=== PATIENT | female | born 1955 | race Caucasian/White ===

== ENCOUNTER → 2017-12-26 07:23 | Outpatient (CLI) | payer OTHER, SELFPAY ==
--- NOTE | 2017-12-26 07:30 | DI.US.S_ITS ---
PROCEDURE: US THYROID INDICATIONS: NONTOXIC MULTINODULAR GOITER TECHNIQUE: Real-time scanning was performed of the thyroid gland, with image documentation. COMPARISON: [facility], US, THYROID, 10/05/2016, 9:51. [facility], US, THYROID, 04/18/2016, 13:12. [facility], US, THYROID, 08/27/2015, 8:34. FINDINGS: Right: The right thyroid lobe measures 2.2 x 2.4 x 5.4 cm. The superior right thyroid lobe contains a 2.1 x 2.0 x 2.4 cm solid nodule that is hyperechoic and smoothly marginated, without internal calcifications and little if any change from the prior ultrasound. There is also a mid right thyroid lobe nodule measuring 1.9 x 1.0 x 1.5 cm, solid and isoechoic with smooth margination is seen several punctate hyperechoic foci. This also has not changed appreciably from the prior study. There is a inferior right thyroid lobe nodule measuring 1.3 x 1.1 x 1.8 cm, solid hypoechoic smoothly marginated and free of internal calcifications. This has not changed in size. Left: The left thyroid lobe measures 2.9 x 4.4 x 6.2 cm. The left thyroid lobe contains a 2.4 x 4.2 x 4.8 cm nodule that is solid hypoechoic smoothly marginated contains several internal patients. This also has not changed appreciably in size. Isthmus: 6 mm in thickness. IMPRESSION: Bilateral thyroid nodules that have not changed appreciably in size from the comparison examination in October of last year. Dictated by: Roberto Johnson M.D. on 12/26/2017 at 14:01 Approved by: Roberto Johnson M.D. on 12/26/2017 at 14:05
[2017-12-26 08:07] LABS: Add Manual Diff / Slide Review NO; Basophils Percent Auto 1.9 % (0-2); Eosinophils Percent Auto 1.8 % (2-4); Hematocrit 39.6 % (36-46); Hemoglobin 13.4 g/dL (12.0-16.0); Lymphocytes Percent Auto 44.6 % (25-40); Mean Corpuscular HGB Conc 33.8 % (30-36); Mean Corpuscular Hemoglobin 31.6 PG (26-34); Mean Corpuscular Volume 93.5 fL (80-100); Monocytes Percent Auto 9.4 % (3-14); Neutrophils Absolute Auto 2400 /uL (3000-5900); Neutrophils Percent Auto 42.3 % (50-75); Platelet Count 285 X10^3/uL (150-400); Red Blood Cell Count 4.23 X10^6/uL (4.0-5.2); Red Cell Distribution Width 13.6 % (11.6-14.8); White Blood Cell Count 5.7 X10^3/uL (4.5-11.0)
[2017-12-26 08:42] LABS: Alanine Aminotransferase 29 IU/L (9-52); Albumin 4.3 g/dL (3.5-5.0); Albumin Globulin Ratio 1.3 (1.0-2.8); Alkaline Phosphatase 55 U/L (38-126); Aspartate Aminotransferase 26 IU/L (14-36); BUN Creatinine Ratio 43.3 (6-22); Bilirubin Total 0.4 mg/dL (0.2-1.3); Calcium 9.5 mg/dL (8.4-10.2); Cholesterol 261 mg/dL (140-199); Estimated Glomerular Filt Rate > 60.0 mL/min (>60); Globulin 3.3 g/dL (1.7-4.1); Glucose 93 mg/dL (80-110); HDL Cholesterol 77 mg/dL (40-60); HEMOLYSIS < 15 (0-50); LDL Cholesterol Calculated 169 mg/dL (<100); Potassium 4.1 mmol/L (3.4-5.1); Sodium 141 mmol/L (137-145); Total Protein 7.6 g/dL (6.3-8.2); Triglycerides 77 mg/dL (35-150)
[2017-12-26 08:58] LABS: Free T3, Triiodothyronine Free 3.57 pg/mL (2.77-5.27); Free T4, Direct Thyroxine 0.93 ng/dL (0.78-2.19)
[2017-12-26 09:12] LABS: Thyroid Stimulating Hormone 0.67 uIU/mL (0.47-4.68)
== END ==
PROVIDERS: Visit Provider Physician Assistant
DX: E04.2 Nontoxic multinodular goiter (principal); E78.5 Hyperlipidemia, unspecified; E06.3 Autoimmune thyroiditis
CPT/HCPCS: 36415; 76536; 80053; 80061; 84439; 84443; 84481; 85025

== ENCOUNTER → 2020-06-23 11:53 | Outpatient (CLI) | payer MEDICARE, SELFPAY ==
--- NOTE | 2020-06-23 | DI.RAD.S_ITS ---
PROCEDURE: XR CHEST 2V INDICATIONS: SHORTNESS OF BREATH TECHNIQUE: 2 views of the chest were acquired. COMPARISON: [facility], , CHEST 1 VIEW, 09/09/2010, 8:08. FINDINGS: Surgical changes and devices: Abdominal surgical clips. Right upper thorax/axillary clips. Lungs and pleura: Mild opacity at the right lung base. Emphysematous change. No pleural effusions or pneumothorax. Mediastinum: Mediastinal contours are normal. Heart size is normal. Bones and chest wall: No suspicious bony abnormalities. Soft tissues appear unremarkable. IMPRESSION: Mild airspace opacity at the right lung base. This could be due to scarring or atelectasis as was seen on the CT from 2010. Less likely pneumonia or aspiration. Emphysematous change. Dictated by: Uriel Post M.D. on 06/23/2020 at 13:37 Approved by: Uriel Post M.D. on 06/23/2020 at 13:41
== END ==
PROVIDERS: PCP Physician Assistant; Referring Provider Physician Assistant; Visit Provider Physician Assistant
DX: R06.02 Shortness of breath (principal)
CPT/HCPCS: 71046

== ENCOUNTER → 2020-06-30 12:55 | Outpatient (CLI) | payer MEDICARE, SELFPAY ==
--- NOTE | 2020-06-30 | DI.US.S_ITS ---
PROCEDURE: US CHEST COMPARISON: None. INDICATIONS: POSSIBLE PLEURAL EFFUSION; STAGE 4 BREAST CANCER FINDINGS: Scanning over the chest bilaterally reveals no evidence of pleural effusions. Thoracentesis procedure therefore was canceled bilaterally. IMPRESSION: No abnormal pleural fluid is present. Thoracentesis was not performed. Dictated by: Roberto Johnson M.D. on 06/30/2020 at 14:06 Approved by: Roberto Johnson M.D. on 06/30/2020 at 14:07
[2020-06-30 13:30] LABS: INR 0.9 (0.9-1.3); Prothrombin Time 10.7 SECONDS (10.1-12.7)
== END ==
PROVIDERS: PCP Physician Assistant; Referring Provider Internal Medicine Hematology & Oncology; Visit Provider Internal Medicine Hematology & Oncology
DX: C50.311 Malignant neoplasm of lower-inner quadrant of right female breast (principal); Z51.81 Encounter for therapeutic drug level monitoring
CPT/HCPCS: 36415; 76604; 85610

== ENCOUNTER → 2020-10-11 09:20 | Outpatient (CLI) | payer MEDICARE, SELFPAY ==
--- NOTE | 2020-10-11 10:29 | DI.CT.S_ITS ---
PROCEDURE: CT CHEST ABD PEL W CON INDICATIONS: Follow-up metastatic breast cancer TECHNIQUE: After the administration of oral and intravenous contrast, 5 mm thick sections acquired from the lung apices to the symphysis. 5 mm coronal and sagittal reformats were performed, with additional 7 mm coronal MIP reformats through the lungs. For radiation dose reduction, the following was used: automated exposure control, adjustment of mA and/or kV according to patient size. COMPARISON: [facility], CR, XR CHEST 2V, 06/23/2020, 12:00. FINDINGS: Image quality: Excellent. CHEST: Lungs and pleura: Scarring/atelectasis in medial aspect of bilateral upper lung woodruff are seen. 1.4 x 1.3 cm spiculated soft tissue density nodule in posterior aspect of right upper lobe near apex is seen series 3, image 60. Spiculated soft tissue density mass measures 2.5 x 2.4 cm in size is seen in medial aspect of left upper lobe series 3, image 116. 1.4 x 1.1 cm nodule with spiculated margin is seen adjacent to posterior pleura of left lower lobe series 3, image 139. 2.1 x 1.5 cm lobulated and ill-defined solid mass is seen adjacent to anterior pleura of left lingular segment series 3, image 156. 2.5 x 2.4 cm solid mass with spiculated margin is seen adjacent to posterior pleura of right lower lobe series 3, image 202. 1.1 cm spiculated solid nodule is also noted in anterior medial aspect of left lingular segment near left lung base series 3, image 238. No pleural effusions or pneumothorax. Central and peripheral airways appear patent and normal in caliber. Mediastinum: Heart size is normal. No pericardial effusion. Borderline prominent mediastinal lymph nodes are seen measures up to 1 cm in short axis diameter in subcarinal space. No gross hilar lymphadenopathy. Thoracic aorta and central pulmonary arteries are normal in size. Esophagus is normal in caliber. No hiatal hernia. Chest wall: No axillary or supraclavicular adenopathy by size criteria. Thyroid gland within normal limits. Patient is status post right mastectomy. Surgical clips are seen in right axilla. ABDOMEN: Solid organs: Liver is normal in size . Hepatic steatosis is seen. 1.4 x 0.9 cm ill-defined hypodense area is seen in left hepatic dome. No other hepatic lesion is seen. Gallbladder is within normal limits. Biliary system is non dilated. Pancreas enhances normally. Spleen is surgically absent. Lobulated soft tissue density structure in left upper quadrant measures 3 x 2.4 cm is seen likely represent a splenule series 2, image 55. No adrenal nodules. Kidneys demonstrate normal size and enhancement, without hydronephrosis. Multiple hypodense areas are seen scattered in upper to midpole of left kidney and may represent renal cysts. Evaluation of left upper pole kidney is slightly limited due to beam hardening artifacts from adjacent surgical clips in splenic fossa. Peritoneum and bowel: Bowel loops demonstrate normal wall thickness and caliber. No free fluid or air. Nodes and vessels: No retroperitoneal or mesenteric adenopathy by size criteria. Surgical clips are seen adjacent to abdominal aorta and IVC. Aorta and inferior vena cava are normal in size. Miscellaneous: No ventral hernias. PELVIS: Genitourinary: Bladder wall thickness is normal. No gross abnormality is seen in uterus and bilateral adnexa. Miscellaneous: No inguinal hernias or adenopathy. Bones: Ill-defined area of sclerosis involving upper sternum is seen concerning for bony metastasis. No other suspicious bony lesion is seen. No vertebral body compression fractures. IMPRESSION: 1. Multiple soft tissue density lesions scattered in bilateral lung parenchyma as described above suggestive of bilateral pulmonary metastatic lesions. No pleural effusion or pneumothorax. Airway is patent. 2. Subtle hypodensity involving left hepatic dome which could represent a hepatic cyst. Early liver metastatic disease cannot be entirely excluded. 3. Borderline prominent subcarinal lymph node. No abdominal or pelvic lymphadenopathy by size criteria. 4. Ill-defined sclerosis involving upper sternum concerning for bony metastasis. No other suspicious bony lesion is seen. 5. 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 Numerous surgical clips are also noted in retroperitoneal space adjacent to abdominal aorta . Dictated by: Kofi Nickerson M.D. on 10/11/2020 at 11:34 Approved by: Kofi Nickerson M.D. on 10/11/2020 at 12:25
== END ==
PROVIDERS: PCP Physician Assistant; Referring Provider Internal Medicine; Visit Provider Internal Medicine
DX: C50.911 Malignant neoplasm of unspecified site of right female breast (principal); C78.00 Secondary malignant neoplasm of unspecified lung; C78.7 Secondary malignant neoplasm of liver and intrahepatic bile duct; M89.9 Disorder of bone, unspecified
CPT/HCPCS: 71260; 74177; Q9967

== ENCOUNTER → 2020-11-12 10:42 | Outpatient (CLI) | payer MEDICARE, SELFPAY ==
[2020-11-12] MEDS: COVID-19 VACC, Ad26(JANSSEN)/PF 0.5 ML IM (10:54)
== END ==
PROVIDERS: PCP Physician Assistant; Visit Provider Internal Medicine
DX: Z23 Encounter for immunization (principal)
CPT/HCPCS: 0031A; 91303

== ENCOUNTER → 2020-11-17 06:40 | Outpatient (CLI) | payer MEDICARE, SELFPAY ==
--- NOTE | 2020-11-17 06:41 | DI.MRI.S_ITS ---
PROCEDURE: MR LUMBAR SPINE WO/W CON INDICATIONS: looking for L5-S1 spinal cord, epidural, paraspinous pelvic TECHNIQUE: Noncontrast sagittal T1 spin echo and T2 fast spin echo, sagittal STIR, axial T1 and T2 fast spin echo through the lumbar spine. In cases with scoliosis, additional coronal T2 fast spin echo may be performed. After the administration of contrast, sagittal and axial T1 spin echo with fat saturation through the lumbar spine. COMPARISON: [facility], , L-SPINE 2-3 VIEWS, 02/14/2016, 13:23. FINDINGS: Image quality: Excellent. Alignment and curvature: There is normal bony alignment. Bones: Transitional anatomy with sacralization of the L5 vertebral body and rudimentary L5-S1 disc. Marrow is of normal overall signal. No acute vertebral body compression fractures. No suspicious marrow enhancement. Spinal cord: Conus medullaris terminates at the L1 level. Visualized spinal cord demonstrates normal signal, without suspicious enhancement. Paraspinous soft tissues: No paravertebral masses or abnormal enhancement. T12-L1: Normal appearance. L1-L2: Normal appearance. L2-L3: Loss of disc signal. Minimal, diffuse disc bulge. No central stenosis. No neural foraminal narrowing. No neural compression. L3-L4: Loss of disc signal. Mild, diffuse disc bulge. Mild bilateral facet hypertrophy. No central stenosis. No neural foraminal narrowing. No neural compression. L4-L5: Loss of disc signal. Mild, diffuse disc bulge. Moderate to severe bilateral facet hypertrophy. Mild narrowing of the central canal. Mild bilateral neural foraminal narrowing. No neural compression. Edema and mild heterogeneous enhancement noted in the soft tissues adjacent to the facets compatible with inflammatory change including within the neural foraminal fat, left greater than right. L5-S1: Disc has a normal appearance. Mild bilateral facet hypertrophy. No central stenosis. No neural foraminal narrowing. No neural compression. IMPRESSION: 1. Transitional anatomy with sacralization of the L5 vertebral body and rudimentary L5-S1 disc. 2. No evidence of metastatic disease. 3. Multilevel degenerative disc disease. 4. Multilevel facet arthropathy with severe degenerative changes identified in the L4-L5 facets. 5. Mild L4-L5 central canal narrowing. 6. Mild bilateral L4-L5 neural foraminal narrowing. 7. No neural compression. 8. Inflammatory changes noted in the soft tissues adjacent to the L4-L5 facets with inflammatory change which is extending into the bilateral L4-L5 neural foramina, left greater than right. Dictated by: Cinthya Castillo MD, PhD on 11/17/2020 at 13:35 Approved by: Cinthya Castillo MD, PhD on 11/17/2020 at 14:14
--- NOTE | 2020-11-17 06:41 | DI.MRI.S_ITS ---
PROCEDURE: MR PELIS WO/W CON INDICATIONS: breast cancer, left sided back pain radiating to left foot TECHNIQUE: Noncontrast axial and coronal T1 spin echo and STIR through the lumbosacral plexus region. Optional contrast may be given, followed by axial and coronal T1 spin echo with fat saturation through the sacral plexus. COMPARISON: [facility], RG, CT THORAX/ ABD/ PELVIS WITH CONTRAST, 08/20/2020, 11:27. [facility], CT, CT CHEST ABD PEL W CON, 10/11/2020, 10:38. FINDINGS: Image quality: Excellent. Lumbosacral plexus: Superior to the piriformis muscles, the pre-plexal structures appear normal, including the lumbosacral trunk and S1 root. Just anterior to the piriformis muscles, the sacral plexus proper demonstrates normal morphology (lumbosacral trunk, S1 to S3 nerve roots). Inferior to the piriformis muscles, the sciatic nerves appear normal. Soft tissues: The piriformis muscles appear symmetric in size. No presacral masses. Rectum appears normal in caliber and wall thickness. No pathologic free pelvic fluid. No visualized adenopathy by size criteria. Prior CT scanning that included the low pelvis has identified [place] oriented uterus, with little if any visible change from the earliest available CT scanning that shows this finding 08/20/20. By MR scanning the eccentric left-sided dominant fibroid is again seen, mildly heterogeneous in enhancement, and ovoid in morphology, with maximal AP and transverse dimensions of 3.4 x 4.7 cm. An additional right anterior fundal fibroid is exophytic, subserosal, and measures only 1.7 cm in maximal dimension. The uterus is relatively retroverted, and the enlarged left fundal portion of the uterus does impinge against the adjacent underlying left sacral plexus. Bones: Marrow is normal in overall signal. IMPRESSION: Retroverted uterus, with left fundal moderately large fibroid further contributing to impingement on the left margin of the sacral plexus, in this patient with additional small several uterine fibroids and the likelihood of metastatic disease as cause of this appearance is considered very low. No marrow space lesion is found involving the visualized osseous elements of the pelvis. No adenopathy is seen. No ascites or evidence of peritoneal carcinomatosis is found. Dictated by: Roberto Johnson M.D. on 11/17/2020 at 10:11 Approved by: Roberto Johnson M.D. on 11/17/2020 at 10:22
== END ==
PROVIDERS: PCP Physician Assistant; Referring Provider Internal Medicine; Visit Provider Internal Medicine
DX: C50.911 Malignant neoplasm of unspecified site of right female breast (principal); C78.00 Secondary malignant neoplasm of unspecified lung; C79.51 Secondary malignant neoplasm of bone; N85.4 Malposition of uterus; D25.2 Subserosal leiomyoma of uterus; M51.16 Intervertebral disc disorders with radiculopathy, lumbar region; M47.26 Other spondylosis with radiculopathy, lumbar region; M47.27 Other spondylosis with radiculopathy, lumbosacral region; M48.061 Spinal stenosis, lumbar region without neurogenic claudication; M43.27 Fusion of spine, lumbosacral region
CPT/HCPCS: 72158; 72197; A9579

== ENCOUNTER → 2020-12-15 12:30 | Outpatient (CLI) | payer MEDICARE, SELFPAY ==
--- NOTE | 2020-12-15 12:31 | DI.RAD.S_ITS ---
PROCEDURE: XR CHEST 2V INDICATIONS: SOB and decreased RLL sounds TECHNIQUE: 2 views of the chest were acquired. COMPARISON: [facility], CT, CT CHEST ABD PEL W CON, 10/11/2020, 10:38. [facility], CR, XR CHEST 2V, 06/23/2020, 12:00. FINDINGS: Surgical changes and devices: None. Lungs and pleura: Masslike opacities are noted overlying the left upper and right lower lobes. It is noted there identified on the 10/11/2020 CT along with additional mass lesions not as well appreciated. Mediastinum: Mediastinal contours are normal. Heart size is normal. Bones and chest wall: No suspicious bony abnormalities. Soft tissues appear unremarkable. IMPRESSION: Bilateral pulmonary masses as previously identified. No acute consolidation or effusion. Dictated by: Jackeline Akhtar M.D. on 12/15/2020 at 12:53 Approved by: Jackeline Akhtar M.D. on 12/15/2020 at 12:54
== END ==
PROVIDERS: Family Provider Physician Assistant; PCP Physician Assistant; Referring Provider Internal Medicine; Visit Provider Internal Medicine
DX: C50.911 Malignant neoplasm of unspecified site of right female breast (principal); C78.00 Secondary malignant neoplasm of unspecified lung; C78.7 Secondary malignant neoplasm of liver and intrahepatic bile duct; C79.51 Secondary malignant neoplasm of bone; R06.02 Shortness of breath; R91.8 Other nonspecific abnormal finding of lung field
CPT/HCPCS: 71046

== ENCOUNTER → 2020-12-16 10:40 | Outpatient (CLI) | payer MEDICARE, SELFPAY ==
--- NOTE | 2020-12-16 10:42 | DI.CT.S_ITS ---
PROCEDURE: CT CHEST ABD PEL W CON INDICATIONS: Follow-up metastatic breast cancer TECHNIQUE: After the administration of oral and intravenous contrast, 5 mm thick sections acquired from the lung apices to the symphysis. 5 mm coronal and sagittal reformats were performed, with additional 7 mm coronal MIP reformats through the lungs. For radiation dose reduction, the following was used: automated exposure control, adjustment of mA and/or kV according to patient size. COMPARISON: [facility], CT, CT CHEST ABD PEL W CON, 10/11/2020, 10:38. FINDINGS: Image quality: Excellent. CHEST: Lungs and pleura: Chronic scarring and bronchiectasis is seen in the medial left upper lobe. No pleural effusions or pneumothorax. Central and peripheral airways appear patent and normal in caliber. In the posterior right upper lobe, a 1.5 x 1.3 cm pulmonary nodule is seen (83/2), which previously measured 1.3 x 1.[address] from 10/11/2020. A left lingular/paramediastinal mass measures 3.4 x 2.6 cm (133/2), previously 2.6 x 2.4 cm. An anterior left lower lobe nodule measures 1.5 x 1.2 cm (250/2), which previously measured 1.2 x 1.0 cm. Additional nodules in the lingula, superior section of the left lower lobe, and posterior right lower lobe also appear mildly increased in size. No new pulmonary nodule is identified. Mediastinum: Heart size is normal. No pericardial effusion. And upper mediastinal prevascular lymph node (25/3) measures 1.2 cm in short axis diameter, previously 0.9 cm on the prior CT. An AP window lymph node measures 1.3 cm in short axis (21/3), which previously measured 0.8 cm. A 1.2 cm subcarinal lymph node (27/3) and a 0.7 cm pretracheal lymph node (27/3) are stable in size. Thoracic aorta and central pulmonary arteries are normal in size. Esophagus is normal in caliber. No hiatal hernia. Chest wall: Postsurgical changes are seen from right mastectomy. A right level 3 axillary lymph node is seen that measures 1.1 cm in short axis diameter, previously measuring 0.[address] from 10/11/2020. No supraclavicular adenopathy by size criteria. Thyroid gland appears diminutive or absent. ABDOMEN: Solid organs: A hypoattenuating lesion in the left hepatic lobe measures 4.8 x 4.5 cm (52/3), which has significantly increased in size when compared to the prior CT from 10/11/2020, when the lesion measured 1.4 x 0.9 cm. A possible subtle heterogeneously hypoattenuating lesion is seen at the lateral tip of hepatic segment 2 measuring approximately 1.1 cm in diameter (53/3), which is of uncertain etiology. Gallbladder appears normal. Biliary system is non dilated. Pancreas enhances normally. The spleen is absent. Multiple small splenules are seen in the left upper quadrant. No adrenal nodules. Kidneys demonstrate normal size and enhancement, without hydronephrosis. Small hypoattenuating lesions in the medial left kidney most likely represent cysts. Peritoneum and bowel: Bowel loops demonstrate normal wall thickness and caliber. No free fluid or air. Nodes and vessels: Multiple surgical clips are seen in the retroperitoneal spaces and the left upper quadrant. No retroperitoneal or mesenteric adenopathy by size criteria. Aorta and inferior vena cava are normal in size. Miscellaneous: No ventral hernias. PELVIS: Genitourinary: Bladder wall thickness is normal. A probable fibroid is again seen in the uterus. Surgical clips are seen in the pelvis. There is trace free fluid in the pelvis. Miscellaneous: No inguinal hernias or adenopathy. Bones: Sclerotic lesion in the manubrium does not appear significantly changed in size. No new osteolytic or osteoblastic lesion is identified. No vertebral body compression fractures. IMPRESSION: 1. Interval progression of metastatic disease. 2. Bilateral metastatic pulmonary nodules have increased in size as described in detail in the body of the report. 3. Multiple upper mediastinal lymph nodes and a right axillary level 3 lymph node have increased in size, suspicious for nikole metastatic disease. 4. Left hepatic lobe mass has significantly increased in size, compatible with hepatic metastatic disease. There is a possible subtle small lesion at the lateral aspect of segment 2 of uncertain etiology. 5. Stable sclerotic lesion in the manubrium. No new osseous metastasis is seen. Nuclear medicine bone scan could be obtained to evaluate for the presence of additional osseous lesions. Dictated by: Art Ramirez M.D. on 12/16/2020 at 12:17 Approved by: Art Ramirez M.D. on 12/16/2020 at 12:49
== END ==
PROVIDERS: Family Provider Physician Assistant; PCP Physician Assistant; Referring Provider Internal Medicine; Visit Provider Internal Medicine
DX: C78.7 Secondary malignant neoplasm of liver and intrahepatic bile duct (principal); C50.811 Malignant neoplasm of overlapping sites of right female breast; C78.01 Secondary malignant neoplasm of right lung; C78.02 Secondary malignant neoplasm of left lung; C79.51 Secondary malignant neoplasm of bone; R59.0 Localized enlarged lymph nodes
CPT/HCPCS: 71260; 74177

== ENCOUNTER 2020-12-27 10:30 | Outpatient (RCR) | payer MEDICARE, SELFPAY ==
--- NOTE | 2020-12-20 14:30 | PT.OPPOC ---
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 (12/20/20) Lymphedema, not elsewhere classified (12/20/20) Radiculopathy, lumbosacral region (12/20/20) Visit Care Team Role Provider Type Shari Cardenas PA-C Family Provider Non-Staff Primary Care Provider Specialty: Internal Medicine Address: [address] [place] [address], [id number] Email: [email or web address] Murphy Bone MD Attending Provider Physician Referring Provider Specialty: Oncology Address: [address] [place] [address], [id number] Email: Plan Of Care PT-OP-T Assessment and Plan Start: 12/14/20 15:24 Freq: Status: Active Protocol: Document 12/20/20 14:30 SAK (Rec: 12/20/20 17:58 [facility] [id number]) Physical Therapy Assessment Rehab Potential Rehabilitation Potential Good Evaluation Complexity Number of Personal Factors/Comorbidities 3 or More Number of Body Systems Impaired 3 Clinical Presentation at Evaluation Evolving Impairments Impairments Functional Activities,Pain, Soft Tissue Mobility,Strength Goals Five Impairment lymphedema right UE Avionics Technician Goal (LTG) Decrease lymphedema to stable level. Patient to be independent with self- management to include skin care, manual lymphatic drainage, appropriate use of compression, lymphedema exercises. LTG Duration 02/18/21. Four Impairment lacking HEP to address muscle imbalances core and hips Usp Goal (LTG) Patient will be independent and compliant with HEP with emphasis on core strengthening and stabilization, and targeted flexibility LE's LTG Duration 02/18/21 Three Impairment Limited walking due to pain; 1x/wk Short Term Goal (STG) Patient to be able to improve walking frequency to 3x/wk STG Duration 01/20/21 Usp Goal (LTG) Patient to be able to resume walking 5x/wk without an increase in pain LTG Duration 02/18/21 One Impairment pain 4/10 lumbar spine with radicular symptoms right lateral LE Usp Goal (LTG) Decrease pain to no greater than 1/10 with all usual activities LTG Duration 02/18/21 Two Impairment Oswestry disability index score 20% Usp Goal (LTG) Decrease LUCRETIA to no greater than 10% as measure of improved functional activity tolerance. LTG Duration 02/18/21 Assessment Summary Assessment Patient presents to PT with function-limiting pain bilateral lumbar spine with radicular symptoms left lateral LE. She has muscle imbalances in her hips and core which we can address with therapeutic exercise. She experienced some relief today with gentle manual traction and we will continue with this in PT, with possibly instruction to her so they can do at home as well. She also has tightness throughout her lumbar spine and left buttock which may benefit from further manual techniques. Gentle heat may also be of benefit in decreasing patient's pain and this was tried today; caution with heat will need to be taken as patient has signs and symptoms of lymphedema in her right UE which has not been treated; her physician will be contacted to see if patient can be treated for this as well. Physical Therapy Plan Frequency and Duration Frequency of Treatment 2x/Week Duration of Treatment 8 wks Plan of Care Start Date 12/20/20 Plan of Care End Date 02/18/21 Plan of Care Dates Plan of Care Start Date 12/20/20 Plan of Care End Date 02/18/21 Electronically Signed by: Jazmin Zuniga, PT 12/22/20 2018 Please Sign and Return: I have reviewed this Plan of Care and certify that the skilled therapy services above are required to meet the patient?s needs. Physician Signature Date Printed Name and Credentials Clinical Instructor Signature Printed Name and Credentials
--- NOTE | 2020-12-20 20:18 | PT.OIE ---
Current Diagnoses Malignant neoplasm of unspecified site of right female breast (12/20/20) Secondary malignant neoplasm of unspecified lung (12/20/20) Secondary malignant neoplasm of liver and intrahepatic bile duct (12/20/20) Secondary malignant neoplasm of bone (12/20/20) Lymphedema, not elsewhere classified (12/20/20) Radiculopathy, lumbosacral region (12/20/20) Past Surgical History History of splenectomy Status post delivery Status post surgery (07/23/15) Visit Care Team Role Provider Type Shari Cardenas PA-C Family Provider Non-Staff Primary Care Provider Specialty: Internal Medicine Address: [address] [place] [address], [id number] Email: [email or web address] Bone MD Attending Provider Physician Referring Provider Specialty: Oncology Address: [address] [place] [address], [facility] Email: Physical Therapy Initial Evaluation PT-OP-A Visit Information Start: 12/14/20 15:24 Freq: Status: Active Protocol: Document 12/20/20 14:30 [facility] (Rec: 12/20/20 17:44 [facility] [id number]) Out-Patient Physical Therapy Visit Information Visit Information Visit Type Initial Evaluation Visit Start Time 14:30 Visit Stop Time 15:25 Total Visit Minutes 55 Visit Number 1 Evaluation Information Evaluation Date 12/20/20 Precautions Precautions She had a thyroidectomy in August of 2018 because of her PET positive thyroid lesions which showed no evidence of malignancy. 2. History of a heart murmur. Echocardiogram done July 04, 2020 showed ejection fraction of 60% with abnormalities of the mitral and aortic valve. 3. She denies high blood pressure, diabetes, rheumatic fever, tuberculosis, heart attacks, strokes, stomach ulcers, pneumonia or any other kind of cancer 4. History of migraine headaches 5. History of iron deficiency anemia 6. Her paternal grandfather had prostate cancer. Number 7 history of osteoporosis 8. She is accompanied by is very supportive. She has been a health information director. She is not a smoker in a rare drinker. She tries to exercise and be as active as she can eat a good diet. 9. Previous surgeries include a splenectomy, her thyroidectomy, and mastectomy. PT-OP-B Current Condition Start: 12/14/20 15:24 Freq: Status: Active Protocol: Document 12/20/20 14:30 [facility] (Rec: 12/20/20 17:44 [facility] [id number]) Current Condition History of Current Condition Onset Date 4 months Current Complaints LBP with radicular symptoms lateral left LE History of Current Condition Patient reports 4 month history of LBP with no known cause, no accident, trauma, heavy lifting. Has occasionally used ice, hasn't tried heat. Does a few stretching exercises in the morning otherwise walks for exercise, no core exercises. Used to walk 5 days per week , recently more like 1x/wk both because of pain and fatigue. Pain increases with movement and decreases with inactivity. Prior Treatments and Tests history of breast cancer with right mastectomy 2016, metastasis to liver, lungs, bones including ribs. States recent MRI showed none in lumbar spine.MRI: per patient arthritis, bone spurs. Treatment Goals Patient/Caregiver Goals minimize pain, allow her to return to prior level of activity Prior Functional Status Baseline Function- ADL's Independent Baseline Function- Mobility Independent Baseline Function- Gait no limitations Baseline Function- Work/School no limitations Baseline Function- Recreation/Hobbies no limitations Current Functional Impairments (Reported) Functional Limitations- ADL's painful Functional Limitations- Mobility/Gait painful Functional Limitations- Work/School retired Functional Limitations- Recreation/ painful Hobbies Personal Factors Other Personal Factors That May Effect Breast cancer with metastasis, Therapy/Recovery fatigue PT-OP-C Subjective Start: 12/14/20 15:24 Freq: Status: Active Protocol: Document 12/20/20 14:30 [facility] (Rec: 12/22/20 20:16 [facility] [id number]) Patient Questionnaires Oswestry Low Back Index Oswestry Score 20 OP-PT Pain Assessment Pain Assessment Grid Paper Pain Assessment Grid Completed Yes Location bilateral lumbar spine with radiucular symptoms lateral left LE Intensity 4 Scale Used Numeric (0 - 10) Description Aching,Radiating,Tender Frequency Frequent Pain Aggravating Factors Activity,Exercise,Standing, Walking Pain Alleviating Factors Medication,Inactivity,Rest Home Pain Medication Use Pain Medications Used Yes: Hydrocodone intermittant Pain Behaviors Pain Behaviors Facial Grimacing,Guarding, Wincing PT-OP-F Manual Assessment Start: 12/14/20 15:24 Freq: Status: Active Protocol: Document 12/20/20 14:30 [facility] (Rec: 12/22/20 20:16 [facility] [id number]) Manual Assessments Soft Tissue Assessment Soft Tissue Mobility Assessment palpable tightness throughout lumbar spine, left piriformis Joint Mobility Assessment Joint Mobility Assessment not done due to bone mets PT-OP-G Mobility & Gait Start: 12/14/20 15:24 Freq: Status: Active Protocol: Document 12/20/20 14:30 [facility] (Rec: 12/22/20 20:16 [facility] [id number]) OP Gait Assessment Gait Gait Assistance Required: Independent Assistive Devices Assistive Device None Factors Limiting Gait Function Factors Limiting Gait Function Pain Comments Gait Comments also limited by fatigue due to cancer, cancer medication PT-OP-H Neuro Start: 12/14/20 15:24 Freq: Status: Active Protocol: Document 12/20/20 14:30 [facility] (Rec: 12/22/20 20:16 [facility] [id number]) Sensation Evaluation Comments Summary Comments denies N/T PT-OP-J Posture/Palpation/Skin Start: 12/14/20 15:24 Freq: Status: Active Protocol: Document 12/20/20 14:30 [facility] (Rec: 12/22/20 20:16 [facility] [id number]) Posture Evaluation Position Standing T-Spine Posture Increased Kyphosis L-Spine Posture Increased Lordosis Shoulder Posture (L) Rounded,(R) Rounded Arm Posture (L) Internally Rotated,(R) Internally Rotated Palpation Assessment Location lumbar spine Palpation Location l/s, buttock left Palpation Findings Soft Tissue Tightness, Tenderness PT-OP-K Range of Motion Start: 12/14/20 15:24 Freq: Status: Active Protocol: Document 12/20/20 14:30 [facility] (Rec: 12/22/20 20:16 [facility] [id number]) Lumbar Spine Range of Motion Lumbar Spine Active Testing Position Standing Flexion 50 Extension 20 Rotation Left 25 Rotation Right 25 Lateral Flexion Left 30 Lateral Flexion Right 30 ROM Limitations Pain Hip Goniometric Range of Motion Hip priyank Straight Leg Raise 65 Extension 10 Abduction 45 Comments motion symmetrical except ER right 55, left 70, IR right 40 , left 25 PT-OP-M Strength Start: 12/14/20 15:24 Freq: Status: Active Protocol: Document 12/20/20 14:30 [facility] (Rec: 12/22/20 20:16 [facility] [id number]) Hip Strength Hip Manual Muscle Testing Left Flexion (L2) 4 Good Extension (S1) 4- Good- Abduction 4+ Good+ External Rotation 4- Good- Internal Rotation 4 Good Right Flexion (L2) 4 Good Extension (S1) 4- Good- Abduction 4- Good- Internal Rotation 4+ Good+ Knee Strength Knee Manual Muscle Testing priyank Flexion (S2) 5 Normal Extension (L3) 5 Normal Ankle/Foot Strength Ankle and Foot Manual Muscle Testing priyank Dorsiflexion (L4) 5 Normal Plantarflexion (S1) 5 Normal Toe Strength Toe Manual Muscle Testing Great Toe Flexion 5 Normal Extension 5 Normal Comments priyank PT-OP-N Lymphedema Start: 12/14/20 15:24 Freq: Status: Active Protocol: Document 12/20/20 14:30 [facility] (Rec: 12/22/20 20:16 [facility] [id number]) Lymphedema Measurements Comments Lymphedema Comments patient c/o swelling right UE, no evaluated today due to order for LBP but will request approval to treat patient for lymphedema. PT-OP-Q Treatments Start: 12/14/20 15:24 Freq: Status: Active Protocol: Document 12/20/20 14:30 [facility] (Rec: 12/20/20 17:46 [facility] [id number]) Self-Care/Home Management Treatment Education Patient Education Home Exercise Program,Pain Management,Posture Other Education HEP: sidelying hip abduction, supine hip external rotation stretch, supine piriformis stretch PT-OP-R Modalities Start: 12/14/20 15:24 Freq: Status: Active Protocol: Document 12/20/20 14:30 [facility] (Rec: 12/20/20 17:45 [facility] [id number]) Hot Pack/Cold Pack Treatment lumbar spine Patient Position Hooklying Treatment Duration (minutes) 15 Patient Tolerance Good Comments need extra towel layer for mile heat PT-OP-T Assessment and Plan Start: 12/14/20 15:24 Freq: Status: Active Protocol: Document 12/20/20 14:30 [facility] (Rec: 12/20/20 17:58 [facility] [id number]) Physical Therapy Assessment Rehab Potential Rehabilitation Potential Good Evaluation Complexity Number of Personal Factors/Comorbidities 3 or More Number of Body Systems Impaired 3 Clinical Presentation at Evaluation Evolving Impairments Impairments Functional Activities,Pain, Soft Tissue Mobility,Strength Goals Five Impairment lymphedema right UE Nursing Care Attendant Goal (LTG) Decrease lymphedema to stable level. Patient to be independent with self- management to include skin care, manual lymphatic drainage, appropriate use of compression, lymphedema exercises. LTG Duration 02/18/21. Four Impairment lacking HEP to address muscle imbalances core and hips Nursing Care Attendant Goal (LTG) Patient will be independent and compliant with HEP with emphasis on core strengthening and stabilization, and targeted flexibility LE's LTG Duration 02/18/21 Three Impairment Limited walking due to pain; 1x/wk Short Term Goal (STG) Patient to be able to improve walking frequency to 3x/wk STG Duration 01/20/21 Nursing Care Attendant Goal (LTG) Patient to be able to resume walking 5x/wk without an increase in pain LTG Duration 02/18/21 One Impairment pain 4/10 lumbar spine with radicular symptoms right lateral LE [facility] Goal (LTG) Decrease pain to no greater than 1/10 with all usual activities LTG Duration 02/18/21 Two Impairment Oswestry disability index score 20% [facility] Goal (LTG) Decrease LUCRETIA to no greater than 10% as measure of improved functional activity tolerance. LTG Duration 02/18/21 Assessment Summary Assessment Patient presents to PT with function-limiting pain bilateral lumbar spine with radicular symptoms left lateral LE. She has muscle imbalances in her hips and core which we can address with therapeutic exercise. She experienced some relief today with gentle manual traction and we will continue with this in PT, with possibly instruction to her so they can do at home as well. She also has tightness throughout her lumbar spine and left buttock which may benefit from further manual techniques. Gentle heat may also be of benefit in decreasing patient's pain and this was tried today; caution with heat will need to be taken as patient has signs and symptoms of lymphedema in her right UE which has not been treated; her physician will be contacted to see if patient can be treated for this as well. Physical Therapy Plan Frequency and Duration Frequency of Treatment 2x/Week Duration of Treatment 8 wks Plan of Care Start Date 12/20/20 Plan of Care End Date 02/18/21
--- NOTE | 2020-12-27 16:39 | PT.OTN ---
Current Diagnoses Malignant neoplasm of unspecified site of right female breast (12/27/20) Secondary malignant neoplasm of unspecified lung (12/27/20) Secondary malignant neoplasm of liver and intrahepatic bile duct (12/27/20) Secondary malignant neoplasm of bone (12/27/20) Lymphedema, not elsewhere classified (12/27/20) Radiculopathy, lumbosacral region (12/27/20) Physical Therapy Treatment Note PT-OP-A Visit Information Start: 12/14/20 15:24 Freq: Status: Active Protocol: Document 12/27/20 10:39 [facility] (Rec: 12/27/20 11:36 [facility] [id number]) Out-Patient Physical Therapy Visit Information Visit Information Visit Type Treatment Note Visit Note Reports feeling mentally and physically exhausted, talking with cancer care at [facility] about pain and palliative care options. Can' t sleep right now, even if not hurting unless she takes the Hydrocodone; has been taking 2 at night for sleep, but feels lowsy during the day as above . Edema in arm aching and keeping her awake at times but even when back and arm not hurting can't seem to sleep. [facility]. States she uses meditation yisel to try to relax. Has obtained compression sleeve right UE which fits well upper arm and seems to help swelling some, somewhat loose in forearm. Visit Start Time 10:40 Visit Stop Time 11:25 Total Visit Minutes 45 Visit Number 2 Precautions Precautions She had a thyroidectomy in August of 2018 because of her PET positive thyroid lesions which showed no evidence of malignancy. 2. History of a heart murmur. Echocardiogram done July 04, 2020 showed ejection fraction of 60% with abnormalities of the mitral and aortic valve. 3. She denies high blood pressure, diabetes, rheumatic fever, tuberculosis, heart attacks, strokes, stomach ulcers, pneumonia or any other kind of cancer 4. History of migraine headaches 5. History of iron deficiency anemia 6. Her paternal grandfather had prostate cancer. Number 7 history of osteoporosis 8. She is accompanied by is very supportive. She has been a food quality technician. She is not a smoker in a rare drinker. She tries to exercise and be as active as she can eat a good diet. 9. Previous surgeries include a splenectomy, her thyroidectomy, and mastectomy. PT-OP-B Current Condition Start: 12/14/20 15:24 Freq: Status: Active Protocol: Document 12/20/20 14:30 [facility] (Rec: 12/20/20 17:44 [facility] [id number]) Current Condition History of Current Condition Onset Date 4 months Current Complaints LBP with radicular symptoms lateral left LE History of Current Condition Patient reports 4 month history of LBP with no known cause, no accident, trauma, heavy lifting. Has occasionally used ice, hasn't tried heat. Does a few stretching exercises in the morning otherwise walks for exercise, no core exercises. Used to walk 5 days per week , recently more like 1x/wk both because of pain and fatigue. Pain increases with movement and decreases with inactivity. Prior Treatments and Tests history of breast cancer with right mastectomy 2017, metastasis to liver, lungs, bones including ribs. States recent MRI showed none in lumbar spine.MRI: per patient arthritis, bone spurs. Treatment Goals Patient/Caregiver Goals minimize pain, allow her to return to prior level of activity Prior Functional Status Baseline Function- ADL's Independent Baseline Function- Mobility Independent Baseline Function- Gait no limitations Baseline Function- Work/School no limitations Baseline Function- Recreation/Hobbies no limitations Current Functional Impairments (Reported) Functional Limitations- ADL's painful Functional Limitations- Mobility/Gait painful Functional Limitations- Work/School retired Functional Limitations- Recreation/ painful Hobbies Personal Factors Other Personal Factors That May Effect Breast cancer with metastasis, Therapy/Recovery fatigue PT-OP-C Subjective Start: 12/14/20 15:24 Freq: Status: Active Protocol: Document 12/20/20 14:30 [facility] (Rec: 12/22/20 20:16 [facility] [id number]) Patient Questionnaires Oswestry Low Back Index Oswestry Score 20 OP-PT Pain Assessment Pain Assessment Grid Paper Pain Assessment Grid Completed Yes Location bilateral lumbar spine with radiucular symptoms lateral left LE Intensity 4 Scale Used Numeric (0 - 10) Description Aching,Radiating,Tender Frequency Frequent Pain Aggravating Factors Activity,Exercise,Standing, Walking Pain Alleviating Factors Medication,Inactivity,Rest Home Pain Medication Use Pain Medications Used Yes: Hydrocodone intermittant Pain Behaviors Pain Behaviors Facial Grimacing,Guarding, Wincing PT-OP-F Manual Assessment Start: 12/14/20 15:24 Freq: Status: Active Protocol: Document 12/20/20 14:30 [facility] (Rec: 12/22/20 20:16 [facility] [id number]) Manual Assessments Soft Tissue Assessment Soft Tissue Mobility Assessment palpable tightness throughout lumbar spine, left piriformis Joint Mobility Assessment Joint Mobility Assessment not done due to bone mets PT-OP-G Mobility & Gait Start: 12/14/20 15:24 Freq: Status: Active Protocol: Document 12/20/20 14:30 [facility] (Rec: 12/22/20 20:16 [facility] [id number]) OP Gait Assessment Gait Gait Assistance Required: Independent Assistive Devices Assistive Device None Factors Limiting Gait Function Factors Limiting Gait Function Pain Comments Gait Comments also limited by fatigue due to cancer, cancer medication PT-OP-H Neuro Start: 12/14/20 15:24 Freq: Status: Active Protocol: Document 12/20/20 14:30 [facility] (Rec: 12/22/20 20:16 [facility] [id number]) Sensation Evaluation Comments Summary Comments denies N/T PT-OP-J Posture/Palpation/Skin Start: 12/14/20 15:24 Freq: Status: Active Protocol: Document 12/20/20 14:30 [facility] (Rec: 12/22/20 20:16 [facility] [id number]) Posture Evaluation Position Standing T-Spine Posture Increased Kyphosis L-Spine Posture Increased Lordosis Shoulder Posture (L) Rounded,(R) Rounded Arm Posture (L) Internally Rotated,(R) Internally Rotated Palpation Assessment Location lumbar spine Palpation Location l/s, buttock left Palpation Findings Soft Tissue Tightness, Tenderness PT-OP-K Range of Motion Start: 12/14/20 15:24 Freq: Status: Active Protocol: Document 12/20/20 14:30 [facility] (Rec: 12/22/20 20:16 [facility] [id number]) Lumbar Spine Range of Motion Lumbar Spine Active Testing Position Standing Flexion 50 Extension 20 Rotation Left 25 Rotation Right 25 Lateral Flexion Left 30 Lateral Flexion Right 30 ROM Limitations Pain Hip Goniometric Range of Motion Hip priyank Straight Leg Raise 65 Extension 10 Abduction 45 Comments motion symmetrical except ER right 55, left 70, IR right 40 , left 25 PT-OP-M Strength Start: 12/14/20 15:24 Freq: Status: Active Protocol: Document 12/20/20 14:30 [facility] (Rec: 12/22/20 20:16 [facility] [id number]) Hip Strength Hip Manual Muscle Testing Left Flexion (L2) 4 Good Extension (S1) 4- Good- Abduction 4+ Good+ External Rotation 4- Good- Internal Rotation 4 Good Right Flexion (L2) 4 Good Extension (S1) 4- Good- Abduction 4- Good- Internal Rotation 4+ Good+ Knee Strength Knee Manual Muscle Testing priyank Flexion (S2) 5 Normal Extension (L3) 5 Normal Ankle/Foot Strength Ankle and Foot Manual Muscle Testing priyank Dorsiflexion (L4) 5 Normal Plantarflexion (S1) 5 Normal Toe Strength Toe Manual Muscle Testing Great Toe Flexion 5 Normal Extension 5 Normal Comments priyank PT-OP-N Lymphedema Start: 12/14/20 15:24 Freq: Status: Active Protocol: Document 12/20/20 14:30 [facility] (Rec: 12/22/20 20:16 [facility] [id number]) Lymphedema Measurements Comments Lymphedema Comments patient c/o swelling right UE, no evaluated today due to order for LBP but will request approval to treat patient for lymphedema. PT-OP-Q Treatments Start: 12/14/20 15:24 Freq: Status: Active Protocol: Document 12/27/20 10:39 [facility] (Rec: 12/27/20 11:36 [facility] [id number]) Therapeutic Exercises Supine Exercises lat stretch Reps/Minutes 5x5, 1x30 pec stretch Reps/Minutes 5x5, 1x30 TrA with hip ab/ER Reps/Minutes 2x30 TrA with gluteal set Reps/Minutes 5x5 TrA with pillow squeeze Reps/Minutes 5x5 TrA Reps/Minutes 5x5 piriformis Reps/Minutes 2x30 figure 4 Reps/Minutes 2x30 Manual Therapy Treatment Manual Traction Lumbar Details gentle inferior pressure on distal thighs Body Position Hooklying Reps/Duration 10x30 hold, 10 sec release Comments Patient reports decrease in pain. Self-Care/Home Management Treatment Education Patient Education Home Exercise Program,Pain Management,Posture Other Education reviewed HEP IPA sleeping positions PT-OP-R Modalities Start: 12/14/20 15:24 Freq: Status: Active Protocol: Document 12/20/20 14:30 [facility] (Rec: 12/20/20 17:45 [facility] [id number]) Hot Pack/Cold Pack Treatment lumbar spine Patient Position Hooklying Treatment Duration (minutes) 15 Patient Tolerance Good Comments need extra towel layer for mile heat PT-OP-T Assessment and Plan Start: 12/14/20 15:24 Freq: Status: Active Protocol: Document 12/27/20 10:39 [facility] (Rec: 12/27/20 11:36 [facility] [id number]) Physical Therapy Assessment Goals Five Impairment lymphedema right UE Longterm Goal (LTG) Decrease lymphedema to stable level. Patient to be independent with self- management to include skin care, manual lymphatic drainage, appropriate use of compression, lymphedema exercises. LTG Duration 02/18/21. Four Impairment lacking HEP to address muscle imbalances core and hips Longterm Goal (LTG) Patient will be independent and compliant with HEP with emphasis on core strengthening and stabilization, and targeted flexibility LE's LTG Duration 02/18/21 Three Impairment Limited walking due to pain; 1x/wk Short Term Goal (STG) Patient to be able to improve walking frequency to 3x/wk STG Duration 01/20/21 Train Director Goal (LTG) Patient to be able to resume walking 5x/wk without an increase in pain LTG Duration 02/18/21 One Impairment pain 4/10 lumbar spine with radicular symptoms right lateral LE Longterm Goal (LTG) Decrease pain to no greater than 1/10 with all usual activities LTG Duration 02/18/21 Two Impairment Oswestry disability index score 20% Train Director Goal (LTG) Decrease LUCRETIA to no greater than 10% as measure of improved functional activity tolerance. LTG Duration 02/18/21 Assessment Summary Assessment Circumferential measurements and examination of right UE are positive for lymphedema right UE. Patient compliant with HEP, obtained compression sleeve as recommended. Was also instructed compression shirt may be helpful as well. Updated HEP to include shoulder stretches to further facilitate lymphatic flow and decrease pain, and given handouts for bed positioning for spinal support. . Reviewed correct core activation and progressed core stabilization ex as well, patient demonstrated good understanding. Also discussed relaxation techniques and other apps, options for helping with sleep. Patient waiting to hear back from doctor regarding medications, palliative care. Patient asked about ultrasound as treatment modality possibility for her LBP; patient advised that cancer is a contraindication for that treatment. Physical Therapy Plan Frequency and Duration Frequency of Treatment 2x/Week Duration of Treatment 8 wks Plan of Care Start Date 12/20/20 Plan of Care End Date 02/18/21 Next Visit Focus/Plan Next Note Type Treatment Note Next Visit Plan evaluate response to today's treatment, continue circumferential monitoring, core stabilization, gentle manual traction for pain relief. Consider soft tissue mobilization for pain managment.
--- NOTE | 2020-12-29 08:05 | PT-OP ANOTE ---
cancelled PT appointment
--- NOTE | 2020-12-29 10:15 | PC.NURSE ---
INSOMNIA DUE TO PAIN: PATIENT CALLED IN REPORTING CONTINUED PROBLEMS WITH SLEEPING DUE TO LOWER BACK SORENESS AND SCIATIC PAIN IN LEFT LEG UP TO A 6 WELL ARMPIT ACHING ON THE RIGHT SIDE DUE TO LYMPHEDEMA UP TO INTENSITY OF 8. SHE CANNOT GET COMFORTABLE ON EITHER SIDE AND HAS NOT SLEPT MUCH IN THE LAST WEEK. HYDROCODONE HELPED SOME WITH A MINIMAL AMOUNT BUT SHE WOKE UP FEELING MENTALLY VERY BAD AND HAVING CRYING SPELLS WHICH SHE STATES ARE NOT LIKE HER. SHE DOES NOT THINK SHE IS EXPERIENCING MENTAL ISSUES, JUST A SEVERE LACK OF SLEEP. BENADRYL DID NOT HELP. SHE ALSO COMPLAINS OF CONSTANT HEADACHES AND INCREASED FREQUENCY OF MIGRAINES WHICH SHE HAD NOT HAD MUCH SINCE MENOPAUSE, ALSO NO APPETITE AND LOSS OF 5 LBS. TYLENOL AND IBUPROFEN HAVE NOT HELPED. SHE IS DOING THE PT EXERCISES AND SELF EDEMA MASSAGE WHICH SHE HAS LEARNED THROUGH PT. REPORT MADE TO DR MONROY AND PATIENT INFORMED THAT LORAZEPAM AND OXYCODONE WILL BE ORDERED TODAY. SHE SHOULD CALL BACK IF CONTINUING TO HAVE PROBLEMS WITH PAIN AND SLEEP. SHE WAS INFORMED THAT COVERAGE SPECIALIST RN SAID SHE WOULD ALSO CALL HER TODAY.
--- NOTE | 2021-01-19 10:46 | PT-OP ANOTE ---
cancelled PT appointment via [facility]
--- NOTE | 2021-02-01 16:30 | PT.OPDS ---
Current Diagnoses Malignant neoplasm of unspecified site of right female breast (12/27/20) Secondary malignant neoplasm of unspecified lung (12/27/20) Secondary malignant neoplasm of liver and intrahepatic bile duct (12/27/20) Secondary malignant neoplasm of bone (12/27/20) Lymphedema, not elsewhere classified (12/27/20) Radiculopathy, lumbosacral region (12/27/20) Visit Care Team Role Provider Type Shari Cardenas PA-C Family Provider Non-Staff Primary Care Provider Specialty: Internal Medicine Address: [address] [place] [address], [id number] Email: [email or web address] Attending Provider Physician Referring Provider Specialty: Oncology Address: [address] [place] [address], [id number] Email: Visit Number Visit Number 2 Discharge Summary PT-OP-B Current Condition Start: 12/14/20 15:24 Freq: Status: Active Protocol: Document 12/20/20 14:30 [facility] (Rec: 12/20/20 17:44 [facility] [id number]) Current Condition History of Current Condition Onset Date 4 months Current Complaints LBP with radicular symptoms lateral left LE History of Current Condition Patient reports 4 month history of LBP with no known cause, no accident, trauma, heavy lifting. Has occasionally used ice, hasn't tried heat. Does a few stretching exercises in the morning otherwise walks for exercise, no core exercises. Used to walk 5 days per week , recently more like 1x/wk both because of pain and fatigue. Pain increases with movement and decreases with inactivity. Prior Treatments and Tests history of breast cancer with right mastectomy 2017, metastasis to liver, lungs, bones including ribs. States recent MRI showed none in lumbar spine.MRI: per patient arthritis, bone spurs. Treatment Goals Patient/Caregiver Goals minimize pain, allow her to return to prior level of activity Prior Functional Status Baseline Function- ADL's Independent Baseline Function- Mobility Independent Baseline Function- Gait no limitations Baseline Function- Work/School no limitations Baseline Function- Recreation/Hobbies no limitations Current Functional Impairments (Reported) Functional Limitations- ADL's painful Functional Limitations- Mobility/Gait painful Functional Limitations- Work/School retired Functional Limitations- Recreation/ painful Hobbies Personal Factors Other Personal Factors That May Effect Breast cancer with metastasis, Therapy/Recovery fatigue PT-OP-C Subjective Start: 12/14/20 15:24 Freq: Status: Active Protocol: Document 12/20/20 14:30 [facility] (Rec: 12/22/20 20:16 [facility] [id number]) Patient Questionnaires Oswestry Low Back Index Oswestry Score 20 OP-PT Pain Assessment Pain Assessment Grid Paper Pain Assessment Grid Completed Yes Location bilateral lumbar spine with radiucular symptoms lateral left LE Intensity 4 Scale Used Numeric (0 - 10) Description Aching,Radiating,Tender Frequency Frequent Pain Aggravating Factors Activity,Exercise,Standing, Walking Pain Alleviating Factors Medication,Inactivity,Rest Home Pain Medication Use Pain Medications Used Yes: Hydrocodone intermittant Pain Behaviors Pain Behaviors Facial Grimacing,Guarding, Wincing PT-OP-F Manual Assessment Start: 12/14/20 15:24 Freq: Status: Active Protocol: Document 12/20/20 14:30 [facility] (Rec: 12/22/20 20:16 [facility] [id number]) Manual Assessments Soft Tissue Assessment Soft Tissue Mobility Assessment palpable tightness throughout lumbar spine, left piriformis Joint Mobility Assessment Joint Mobility Assessment not done due to bone mets PT-OP-G Mobility & Gait Start: 12/14/20 15:24 Freq: Status: Active Protocol: Document 12/20/20 14:30 [facility] (Rec: 12/22/20 20:16 [facility] [id number]) OP Gait Assessment Gait Gait Assistance Required: Independent Assistive Devices Assistive Device None Factors Limiting Gait Function Factors Limiting Gait Function Pain Comments Gait Comments also limited by fatigue due to cancer, cancer medication PT-OP-H Neuro Start: 12/14/20 15:24 Freq: Status: Active Protocol: Document 12/20/20 14:30 [facility] (Rec: 12/22/20 20:16 [facility] [id number]) Sensation Evaluation Comments Summary Comments denies N/T PT-OP-J Posture/Palpation/Skin Start: 12/14/20 15:24 Freq: Status: Active Protocol: Document 12/20/20 14:30 [facility] (Rec: 12/22/20 20:16 [facility] [id number]) Posture Evaluation Position Standing T-Spine Posture Increased Kyphosis L-Spine Posture Increased Lordosis Shoulder Posture (L) Rounded,(R) Rounded Arm Posture (L) Internally Rotated,(R) Internally Rotated Palpation Assessment Location lumbar spine Palpation Location l/s, buttock left Palpation Findings Soft Tissue Tightness, Tenderness PT-OP-K Range of Motion Start: 12/14/20 15:24 Freq: Status: Active Protocol: Document 12/20/20 14:30 [facility] (Rec: 12/22/20 20:16 [facility] [id number]) Lumbar Spine Range of Motion Lumbar Spine Active Testing Position Standing Flexion 50 Extension 20 Rotation Left 25 Rotation Right 25 Lateral Flexion Left 30 Lateral Flexion Right 30 ROM Limitations Pain Hip Goniometric Range of Motion Hip priyank Straight Leg Raise 65 Extension 10 Abduction 45 Comments motion symmetrical except ER right 55, left 70, IR right 40 , left 25 PT-OP-M Strength Start: 12/14/20 15:24 Freq: Status: Active Protocol: Document 12/20/20 14:30 [facility] (Rec: 12/22/20 20:16 [facility] [id number]) Hip Strength Hip Manual Muscle Testing Left Flexion (L2) 4 Good Extension (S1) 4- Good- Abduction 4+ Good+ External Rotation 4- Good- Internal Rotation 4 Good Right Flexion (L2) 4 Good Extension (S1) 4- Good- Abduction 4- Good- Internal Rotation 4+ Good+ Knee Strength Knee Manual Muscle Testing priyank Flexion (S2) 5 Normal Extension (L3) 5 Normal Ankle/Foot Strength Ankle and Foot Manual Muscle Testing priyank Dorsiflexion (L4) 5 Normal Plantarflexion (S1) 5 Normal Toe Strength Toe Manual Muscle Testing Great Toe Flexion 5 Normal Extension 5 Normal Comments priyank PT-OP-N Lymphedema Start: 12/14/20 15:24 Freq: Status: Active Protocol: Document 12/27/20 10:39 [facility] (Rec: 12/27/20 17:01 [facility] [id number]) Lymphedema Measurements Upper Extremity Circumference Measurements Right Affected MCP 17.6 cm Dorsum of Hand 18 cm Wrist 15.1 cm 5 cm From Wrist Crease 15.1 cm 10 cm From Wrist Crease 16.8 cm 15 cm From Wrist Crease 20.4 cm 20 cm From Wrist Crease 21.9 cm 25 cm From Wrist Crease 23.3 cm 30 cm From Wrist Crease 27.1 cm 35 cm From Wrist Crease 28.4 cm 40 cm From Wrist Crease 27.5 cm 45 cm From Wrist Crease 29.8 cm Left Unaffected MCP 17.5 cm Dorsum of Hand 18.4 cm Wrist 15.1 cm 5 cm From Wrist Crease 15.4 cm 10 cm From Wrist Crease 17.9 cm 15 cm From Wrist Crease 20.4 cm 20 cm From Wrist Crease 21.4 cm 25 cm From Wrist Crease 22.4 cm 30 cm From Wrist Crease 24.6 cm 35 cm From Wrist Crease 25.3 cm 40 cm From Wrist Crease 26 cm 45 cm From Wrist Crease 30 cm PT-OP-T Assessment and Plan Start: 12/14/20 15:24 Freq: Status: Active Protocol: Document 02/01/21 16:29 [facility] (Rec: 02/01/21 16:29 [facility] [id number]) Physical Therapy Plan Discharge Physical Therapy Discharge Reasons Change in Medical Status
== END 2021-02-02 07:50 | disposition home or self-care (01) ==
LOC: PHYS 10:30
PROVIDERS: Family Provider Physician Assistant; PCP Physician Assistant; Referring Provider Internal Medicine; Visit Provider Internal Medicine
DX: C78.00 Secondary malignant neoplasm of unspecified lung (principal); C79.51 Secondary malignant neoplasm of bone; C50.911 Malignant neoplasm of unspecified site of right female breast; C78.7 Secondary malignant neoplasm of liver and intrahepatic bile duct; M54.17 Radiculopathy, lumbosacral region; I89.0 Lymphedema, not elsewhere classified
CPT/HCPCS: 97010; 97110; 97140; 97162; 97535

== ENCOUNTER → 2021-01-07 07:40 | Outpatient (CLI) | payer MEDICARE, SELFPAY ==
--- NOTE | 2021-01-07 07:41 | DI.MRI.S_ITS ---
PROCEDURE: MR HEAD/BRAIN WO/W CON INDICATIONS: Headache, visual field defect, metastatic breast cancer TECHNIQUE: Noncontrast axial T1 spin echo, axial T2 fast spin echo, sagittal and axial FLAIR, coronal T2 fast spin echo, axial gradient echo, axial diffusion and ADC through the brain. After the administration of contrast, axial and coronal T1 spin echo with fat saturation through the brain. COMPARISON: None. FINDINGS: Image quality: Excellent. CSF spaces: Basal cisterns are patent. No extra-axial fluid collections. Ventricles are normal in size and shape. Brain: No midline shift. There are multiple peripherally enhancing bilateral cerebral and cerebellar masses, with surrounding ill-defined FLAIR signal, indicating surrounding vasogenic edema. The 2 largest of these are adjacent within the right superior parietal lobe measuring 20 mm diameter, with surrounding ill-defined FLAIR signal elevation, spanning roughly 55 mm. Multiple smaller masses within the bilateral frontal, temporal, occipital, and parietal lobes are present. Bilateral cerebellar lesions are present, largest of which are in the right posteromedial cerebellum spanning roughly 15 mm and within the left posterior cerebellum measuring roughly 13 mm. There is a left posteromedial frontal mass measuring roughly 12 mm diameter which demonstrates a 7 mm focus of internal low gradient echo signal intensity, consistent with hemorrhagic conversion. No midline shift. There is cerebral volume loss for age. There is periventricular white matter chronic small vessel ischemic change. The brainstem appears normal. Diffusion-weighted images demonstrate no acute ischemic insults. No chronic ischemic insults. Normal intravascular flow voids are present. Skull and face: Calvarial marrow is normal in signal. Orbits appear normal. Sinuses: Sinuses and mastoids appear clear. IMPRESSION: 1. Severe degree of cerebral and cerebellar metastases with surrounding vasogenic edema. No midline shift is present. 2. 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 There is no evidence of acute intracranial hemorrhage. 3. No recent infarct. Dictated by: Tish Ramirez M.D. on 01/07/2021 at 9:01 Approved by: Tish Ramirez M.D. on 01/07/2021 at 9:06
== END ==
PROVIDERS: Family Provider Physician Assistant; PCP Physician Assistant; Referring Provider Internal Medicine; Visit Provider Internal Medicine
DX: R51.9 Headache, unspecified (principal); C50.911 Malignant neoplasm of unspecified site of right female breast; H53.40 Unspecified visual field defects
CPT/HCPCS: 70553; A9579

== ENCOUNTER 2021-01-10 15:24 | Emergency (ER) | payer MEDICARE, SELFPAY ==
[2021-01-10 15:40] VITALS: BP 114/61; PULSE 110; RESP 16; TEMP 37.1; O2SAT 97; BMI 21.3
--- NOTE | 2021-01-10 16:12 | ED.SOB ---
HPI - SOB/Dyspnea General Chief Complaint: Shortness of Breath/Dyspnea Stated Complaint: Stage 4 Breast Cancer, Fatigue, Coughing Time Seen by Provider: 01/10/21 15:50 Source: patient Mode of arrival: Ambulatory Limitations: no limitations History of Present Illness HPI Narrative: Patient is a 65-year-old female with known stage IV metastatic breast cancer to the liver lung and bone is presenting today with worsening cough and fatigue. She has a dry nonproductive cough she has coughing episodes that she cannot stop it hurts her lungs and her ribs quite badly. She tried taking pain medication and a edible cannabis but it made her sleep all day. She denies any real shortness of breath but has quite a bit of pain is while coughing. She also has been having some balance issues and going to grab things and missing them. She denies any worsening of that today. She really has no headache she has no visual changes She has been having some balance issues she had an MRI on 01/07/2021 which was 3 days ago. It does confirm that she has metastasis to the cerebellum and the frontal lobe region which shows a hemorrhagic conversion. MD Complaint: cough Related Data Home Medications Medication Instructions Recorded Confirmed ASPIRIN (Aspirin Low Dose) 325 mg PO Q DAY #0 09/09/10 01/05/21 Bio Enzyme 5 tab DAILY 09/08/20 01/05/21 Cordiceps 1 cap BID 09/08/20 01/05/21 ascorbic acid (vitamin C) [Vitamin 25 mg PO WEEKLY 09/08/20 01/05/21 C] cholecalciferol (vitamin D3) 250 mcg PO DAILY 09/08/20 01/05/21 [Vitamin D3] coenzyme Q10 [CoQ-10] 100 mg PO DAILY 09/08/20 01/05/21 iodine 150 mcg PO BID 09/08/20 01/05/21 levothyroxine 125 mcg PO DAILY 09/08/20 01/05/21 melatonin 20 mg PO PRN PRN 09/08/20 01/05/21 pyridoxine (vitamin B6) [Vitamin 50 mg PO DAILY 09/08/20 01/05/21 B-6] vitamin [id number] acid 2 tab PO DAILY 09/08/20 01/05/21 Previous Rx's Medication Instructions Recorded hydrocodone-acetaminophen 1 - 2 tab PO Q4H PRN #30 tab 12/06/20 lorazepam 0.5 mg PO Q6HR PRN #10 tab 12/29/20 oxycodone 5 - 10 mg PO Q4H PRN #50 cap 12/29/20 albuterol sulfate 2 puff INHALATION Q4-6H PRN #8.5 g 01/10/21 dexamethasone 4 mg PO BID #14 tab 01/10/21 lidocaine 1 patch TOPICAL DAILY PRN #30 ea 01/10/21 tramadol 50 mg PO Q6H PRN #20 tab 01/10/21 Allergies Allergy/AdvReac Type Severity Reaction Status Date / Time No Known Drug Allergies Allergy Verified 09/08/20 11:43 Review of Systems Review of Systems ROS Unobtainable: All systems reviewed & are unremarkable except as noted in HPI and below Constitutional Constitutional: Denies chills, Denies fever(s), Denies lethargy and Denies weakness ENT Ears, Nose, Mouth, and Throat: Denies vertigo and Denies dizziness Cardiovascular Cardiovascular: Denies chest pain, Denies irregular heart rhythm, Denies lightheadedness, Denies palpitations and Denies orthopnea Respiratory Respiratory: Reports cough and Reports pain with cough Gastrointestinal Gastrointestinal: Denies abdominal pain, Denies change in bowel habits, Denies diarrhea, Denies nausea and Denies vomiting Musculoskeletal Musculoskeletal: Denies back pain and Denies myalgias Integumentary/Breasts Skin/Breast: Denies pruritus, Denies erythema, Denies rash and Denies wounds Neurologic Neurologic: Reports as per HPI, Denies vertigo, Denies dizziness and Denies weakness Endocrine Endocrine: Denies palpitations Patient History Medical History (Updated 01/10/21 @ 17:42 by Prudence Rasmussen DO) Bone metastases Brain metastasis Breast cancer, right Liver metastases Lung metastases Surgical History History of splenectomy Status post delivery Status post surgery (07/23/15) Exam Initial Vital Signs Initial Vital Signs: Vital Signs Temperature 98.7 F 01/10/21 15:40 Pulse Rate 110 H 01/10/21 15:40 Respiratory Rate 16 01/10/21 15:40 Blood Pressure 114/61 01/10/21 15:40 Pulse Oximetry 97 01/10/21 15:40 GENERAL: Alert thin 65-year-old female and in no acute distress. HEENT: Head atraumatic,EOMI, pupils reactive, face symmetric, moist mucous membranes CARDIOVASCULAR: Regular rate and rhythm without murmurs, rubs or gallops. RESPIRATORY: Breath sounds equal bilaterally, no wheezes rales or rhonchi. ABDOMEN: Soft, nontender. Normoactive bowel sounds all 4 quadrants. No guarding or rebound. EXTREMITIES: Normal range of motion, no clubbing or edema. Neurovascularly intact NEUROLOGICAL: Alert and oriented x4.Normal gait and speech. Cranial nerves II through XII grossly intact. Rn Social Services strength intact SKIN: Warm, dry, no laceration, no petechiae, no rashes or lesions. Course Orders Ordered: ED Orders 01/10/21 15:58 CMP [Comprehensive Metabolic Panel] Stat Complete Blood Count AUTO DIFF Stat 01/10/21 16:13 CT chest abd pel w con Stat CT head/brain wo con Stat 01/10/21 16:52 COVID19 -Nasal swab/Pre-Proc Stat Discontinued Medications Albuterol (Albuterol 2.5 Mg/3 Ml Neb (Adult)) 2.5 mg INH NOW ONE Stop: 01/10/21 16:17 Last Admin: 01/10/21 17:26 Dose: 2.5 mg Documented by: DAVIE Dexamethasone (Dexamethasone 10 Mg/Ml Vial) 10 mg IV NOW ONE Stop: 01/10/21 17:13 Last Admin: 01/10/21 17:36 Dose: 10 mg Documented by: RAQUEL Vital Signs Vital signs: Vital Signs - 8 hr 01/10/21 15:40 01/10/21 17:23 01/10/21 17:30 Temperature 98.7 F Pulse Rate 110 H 111 H 113 H Respiratory Rate 16 Blood Pressure 114/61 Pulse Oximetry 97 95 96 01/10/21 17:32 Temperature Pulse Rate 112 H Respiratory Rate 22 Blood Pressure Pulse Oximetry 96 MDM - SOB/Dyspnea Lab Data Attestation: I reviewed the patient's lab results. Result diagrams: 01/10/21 15:58 01/10/21 15:58 Labs: Lab Results 01/10/21 01/10/21 01/10/21 Range/Units 15:58 15:58 16:52 WBC 12.1 H (4.5-11.0) X10^3/uL RBC 3.33 L (4.0-5.2) X10^6/uL Hgb 11.4 L (12.0-16.0) g/dL Hct 34.2 L (36-46) % MCV 102.7 H (80-100) fL MCH 34.3 H (26-34) PG MCHC 33.4 (30-36) % RDW 15.7 H (11.6-14.8) % Plt Count 418 H (150-400) X10^3/uL Neut % (Auto) 78.0 H (50-75) % Lymph % (Auto) 7.5 L (25-40) % Arthur % (Auto) 13.9 (3-14) % Eos % (Auto) 0.2 L (2-4) % Baso % (Auto) 0.4 (0-2) % Neut # (Auto) 9400 H (8420-2595) /uL Lymph # (Auto) 900 L (3009-0289) /uL Arthur # (Auto) 1700 H (0-900) /uL Eos # (Auto) 0 (0-450) /uL Baso # (Auto) 0 (0-100) /uL Sodium 135 L (137-145) mmol/L Potassium 4.6 (3.4-5.1) mmol/L Chloride 98 (98-107) mmol/L Carbon Dioxide 30 (22-32) mmol/L BUN 10 (7-17) mg/dL Creatinine 0.61 (0.52-1.04) mg/dL Estimated GFR > 60.0 (>60) mL/min BUN/Creatinine Ratio 16.4 (6-22) Glucose 104 (80-110) mg/dL Calcium 9.5 (8.4-10.2) mg/dL Total Bilirubin 0.5 (0.2-1.3) mg/dL AST 46 H (14-36) IU/L ALT 48 H (<35) IU/L Alkaline Phosphatase 181 H (38-126) U/L Total Protein 7.6 (6.3-8.2) g/dL Albumin 4.0 (3.5-5.0) g/dL Globulin 3.6 (1.7-4.1) g/dL Albumin/Globulin Ratio 1.1 (1.0-2.8) SARS-CoV-2 (PCR) Negative (Negative) Imaging Data CT scan - head: Radiologist's Impression: PROCEDURE: CT HEAD/BRAIN WO CON INDICATIONS: MRI 01/07 mass with hemorrhage TECHNIQUE: Noncontrast 4.5 mm thick angled axial sections acquired from the foramen magnum to the vertex, with coronal and sagittal reformats. For radiation dose reduction, the following was used: automated exposure control, adjustment of mA and/or kV according to patient size. COMPARISON: [facility], MR, MR HEAD/BRAIN WO/W CON, 01/07/2021, 8:33. FINDINGS: Image quality: Excellent. CSF spaces: Basal cisterns are patent. No extra-axial fluid collections. Ventricles are normal in size and shape. Brain: Multiple cerebellar and cerebral metastasis with surrounding vasogenic edema some of which demonstrate high density consistent with intratumoral microhemorrhage or hemorrhagic conversion. This is unchanged compared to the prior MRI on 01/07/2021. No midline shift. No intracranial masses or hemorrhage. Morales-white matter interface is normal. Skull and face: Calvarium and visualized facial bones are intact, without suspicious lesions. Sinuses: Visualized sinuses and mastoids are clear. IMPRESSION: 1. Multiple cerebellar and cerebral metastasis with surrounding vasogenic edema, several of which demonstrate hemorrhagic conversion or intratumoral microhemorrhage which is unchanged compared to the prior MRI. No expanding intraparenchymal hemorrhage. 2. There is no evidence of acute intracranial hemorrhage. Dictated by: John Roy M.D. on 01/10/2021 at 16:56 CT scan - abdomen/pelvis: Radiologist's Impression: PROCEDURE: CT CHEST ABD PEL W CON INDICATIONS: Stage IV metastatic disease TECHNIQUE: After the administration of oral and intravenous contrast, axial sections acquired from the supraclavicular neck to the pubic symphysis. Coronal and sagittal reformats were performed. For radiation dose reduction, the following was used: automated exposure control, adjustment of mA and/or kV according to patient size. COMPARISON:[facility], CT, CT CHEST ABD PEL W CON, 12/16/2020, 12:06. FINDINGS: Image quality: Excellent. CHEST: Axillae: Right axillary node dissection. Chest Wall: Right intra pectoral node measuring 1.6 cm short axis diameter, (10/16), previously 1.2 cm. Right mastectomy. Lungs and Airways: Several pulmonary lesions. For example: -Right upper lobe pulmonary nodule measuring 1.7 x 1.6 cm, (4/69), previously 1.3 x 1.3 cm on 12/16/2020. -Right lower lobe mass measuring 3.3 x 3 cm, (4/181), previously 3.1 x 2.5 cm. -Left upper lobe mass measuring 3.8 x 3.3 cm, (4/115), previously 3.2 x 3 cm. Pleura: Trace bilateral pleural effusions, new. No pneumothorax. Heart: Heart size is normal. No pericardial effusion. Thoracic Vessels: The aorta and pulmonary arteries demonstrate normal size. No central pulmonary embolism seen. Mediastinum and Denae: Multiple enlarged nodes. For example: -Precarinal node short axis diameter 1 cm, (3/), previously 0.8 cm. -Anterior upper mediastinal node 0.9 cm, (314), previously 0.9 cm. Esophagus: No wall thickening. Small hiatal hernia. ABDOMEN: Liver: Heterogeneous lesion in the left lobe of the liver measuring approximately 6 x 5.5 cm, (3/46), previously 5.1 x 4.6 cm. Gallbladder: Unremarkable. Biliary ducts: Unremarkable. Pancreas: Unremarkable. Spleen: Post splenectomy. Small splenule. Adrenal Glands: Unremarkable. Kidneys and Ureters: No hydronephrosis. Left kidney cysts, unchanged. Stomach and Bowel: Multiple clips in the upper abdomen. Stomach, small bowel loops, and colon are unremarkable. Appendix is not identified. Peritoneum: No abnormal intraperitoneal fluid. No free air. Ventral Wall: No hernia. Abdominal Nodes: No retroperitoneal or mesenteric adenopathy by size criteria. Retroperitoneal clips. Vessels: Aorta and inferior vena cava are normal in size. PELVIS: Pelvic Organs: Retroverted fibroid uterus. Trace free fluid. Bladder: Unremarkable. Pelvic Nodes: No enlarged lymph nodes. Miscellaneous: No inguinal hernias are seen. Bones: Sclerosis at the manubrium, (). No compression fracture. IMPRESSION: 1. Enlarging pulmonary metastases. Trace bilateral pleural effusions. 2. Enlarging lymph nodes in the chest. 3. Enlarging hepatic metastasis. 4. Sclerotic lesion at the manubrium. Dictated by: Uriel Post M.D. on 01/10/2021 at 16:56 Approved by: Uriel Post M.D. on 01/10/2021 at 17:13 [facility] Narrative Medical decision making narrative: 1700 I discussed case with Dr. Portillo who reviewed head CT MRI and CT chest. At this time no new focal neurologic deficits or midline shift he says can be started on dexamethasone and follow-up with Dr. Bone this week. It will likely get urgent palliative radiation. Recommends dexamethasone 4 mg twice a day Patient has some relief with albuterol inhaler really complaining of pain in her ribs and cough. she does not want hydrocodone she says it made her cry all day for an unknown reason however she does need something stronger than what she has right now. I have offered her tramadol lidocaine patches which she will happily take. sHe actually has appointment with Dr. Bone in 2 days Discharge Plan Departure Patient Disposition: Home Clinical Impression: Brain metastasis, Lung metastases Instructions: Breast Cancer in Women Activity Restrictions/Additional Instructions: *You have been diagnosed with brain metastasis *What to do: I am sorry to say that her cancer has spread to your brain. There is some swelling noted in her brain as well I have spoken with oncology. You will likely require radiation *Continue to take medications as directed--> SENT TO [facility] IN [place] Dexamethasone 4 mg twice a day, start tomorrow Lidocaine patch placed on area of pain for 12 hours and then remove Tramadol 50 mg every 4-6 hours if needed for pain Tylenol 1000 mg every 6 hours if needed for pain Albuterol 1-2 puffs if needed for coughing spell *Follow up with Dr. Bone as scheduled on Sunday *Return to ER if you should have increasing falls, dizziness, confusion, speech swallowing, weakness, numbness, tingling or any new, worsening or concerning symptoms CONTROLLED SUBSTANCE DISCHARGE (Narcotoic/benzodiazepine/Flexeril/Phenergan) 1. You have been prescribed narcotic medications, it does have acetaminophen/Tylenol/paracetamol in it, DO NOT TAKE MORE THAN 4,00mg in 24 hours of Tylenol. TRAMADOL DOES NOT CONTAIN TYLENOL 2. Please understand that we cannot provide further refills of narcotics, benzodiazepines or controlled substances through the ED and her pain management will need to be through your provider. 3. While on these medications you cannot drive or operate heavy machinery. 4. You cannot sign legal documents or perform any duties such as this. 5. As long as you're taking opiate pain medications he should also be taking a stool softener such as Colace, Dulcolax, MiraLAX or prune juice, to help avoid constipation. Prescriptions: New dexamethasone 4 mg tablet 4 mg PO BID Qty: 14 RF: 0 tramadol 50 mg tablet 50 mg PO Q6H PRN (Reason: pain) Qty: 20 RF: 0 albuterol sulfate 90 mcg/actuation HFA aerosol inhaler 2 puff inhalation Q4-6H PRN (Reason: shortness of breath or wheezing) Qty: 8.5 RF: 0 lidocaine 5 % adhesive patch,medicated 1 patch topical DAILY PRN (Reason: pain) Qty: 30 RF: 0 No Action ASPIRIN (Aspirin Low Dose) 325 mg PO Q DAY Qty: 0 RF: 0 levothyroxine 125 mcg Tablet 125 mcg PO DAILY RF: 0 coenzyme Q10 [CoQ-10] 100 mg Capsule 100 mg PO DAILY RF: 0 cholecalciferol (vitamin D3) [Vitamin D3] 125 mcg (5,000 unit) Tablet 250 mcg PO DAILY RF: 0 melatonin 10 mg Tablet Extended Release 20 mg PO PRN PRN (Reason: Insomnia) RF: 0 Vitamin C 25 mg Tablet 25 mg PO WEEKLY RF: 0 vitamin [id number] acid 500-400 mcg Tablet 2 tab PO DAILY RF: 0 iodine 150 mcg Tablet 150 mcg PO BID RF: 0 Vitamin B-6 50 mg Capsule 50 mg PO DAILY RF: 0 Bio Enzyme 5 tab DAILY RF: 0 Cordiceps 1 cap BID RF: 0 hydrocodone-acetaminophen 5-325 mg Tablet 1 - 2 tab PO Q4H PRN (Reason: Pain (Scale Score 4-6)) Qty: 30 RF: 0 oxycodone 5 mg Capsule 5 - 10 mg PO Q4H PRN (Reason: Pain (Scale Score 4-6)) Qty: 50 RF: 0 lorazepam 1 mg Tablet 0.5 mg PO Q6HR PRN (Reason: insomnia) Qty: 10 RF: 2 Referrals: Shari Cardenas PA-C [Primary Care Provider] -
[2021-01-10 16:23] LABS: Add Manual Diff / Slide Review NO; Basophils Absolute Auto 0 /uL (0-100); Basophils Percent Auto 0.4 % (0-2); Eosinophils Absolute Auto 0 /uL (0-450); Eosinophils Percent Auto 0.2 % (2-4); Hematocrit 34.2 % (36-46); Hemoglobin 11.4 g/dL (12.0-16.0); Lymphocytes Absolute Auto 900 /uL (1100-4500); Lymphocytes Percent Auto 7.5 % (25-40); Mean Corpuscular HGB Conc 33.4 % (30-36); Mean Corpuscular Hemoglobin 34.3 PG (26-34); Mean Corpuscular Volume 102.7 fL (80-100); Monocytes Absolute Auto 1700 /uL (0-900); Monocytes Percent Auto 13.9 % (3-14); Neutrophils Absolute Auto 9400 /uL (1500-7000); Platelet Count 418 X10^3/uL (150-400); Red Blood Cell Count 3.33 X10^6/uL (4.0-5.2); Red Cell Distribution Width 15.7 % (11.6-14.8); White Blood Cell Count 12.1 X10^3/uL (4.5-11.0)
[2021-01-10 16:24] LABS: Alanine Aminotransferase 48 IU/L (<35); Albumin Globulin Ratio 1.1 (1.0-2.8); Alkaline Phosphatase 181 U/L (38-126); Aspartate Aminotransferase 46 IU/L (14-36); BUN Creatinine Ratio 16.4 (6-22); Bilirubin Total 0.5 mg/dL (0.2-1.3); Blood Urea Nitrogen 10 mg/dL (7-17); Calcium 9.5 mg/dL (8.4-10.2); Carbon Dioxide 30 mmol/L (22-32); Chloride 98 mmol/L (98-107); Estimated Glomerular Filt Rate > 60.0 mL/min (>60); Globulin 3.6 g/dL (1.7-4.1); Glucose 104 mg/dL (80-110); HEMOLYSIS < 15 (0-50); Potassium 4.6 mmol/L (3.4-5.1); Sodium 135 mmol/L (137-145); Total Protein 7.6 g/dL (6.3-8.2)
[2021-01-10 17:21] LABS: COVID19 -Nasal RAPID Negative (Negative)
[2021-01-10 17:23] VITALS: PULSE 111; O2SAT 95
[2021-01-10] MEDS: ALBUTEROL 2.5 MG/3 ML NEB (ADULT) INH (17:26)
[2021-01-10 17:30] VITALS: PULSE 113; O2SAT 96
[2021-01-10 17:32] VITALS: PULSE 112; RESP 22; O2SAT 96
[2021-01-10] MEDS: DEXAMETHASONE 10 MG/ML VIAL IV (17:36)
== END 2021-01-10 18:15 | disposition home or self-care (01) ==
PROVIDERS: Emergency Provider Emergency Medicine; Family Provider Physician Assistant; PCP Physician Assistant
DX: C79.31 Secondary malignant neoplasm of brain (principal); C78.7 Secondary malignant neoplasm of liver and intrahepatic bile duct; R05 Cough; R53.83 Other fatigue; R06.02 Shortness of breath; Z20.822 Contact with and (suspected) exposure to COVID-19
CPT/HCPCS: 36415; 70450; 71260; 74177; 80053; 85025; 87635; 94640; 96374; 99284; 99285; C9803; J1100; J7613; Q9967

== ENCOUNTER → 2021-02-09 09:23 | Outpatient (CLI) | payer MEDICARE, SELFPAY ==
--- NOTE | 2021-02-09 09:54 | DI.CT.S_ITS ---
PROCEDURE: CT CHEST ABD PEL W CON INDICATIONS: Pre chemo baseline study. History of metastatic breast cancer. TECHNIQUE: After the administration of oral and intravenous contrast, axial sections acquired from the supraclavicular neck to the pubic symphysis. Coronal and sagittal reformats were performed. For radiation dose reduction, the following was used: automated exposure control, adjustment of mA and/or kV according to patient size. COMPARISON:[facility], CT, CT CHEST ABD PEL W CON, 12/16/2020, 12:06. [facility], CT, CT CHEST ABD PEL W CON, 01/10/2021, 16:22. FINDINGS: Image quality: Excellent. CHEST: Lower Neck: There is an enlarged right supraclavicular centrally necrotic lymph node measuring up to 1.9 x 1.3 cm on series 2, image 8 increased from 1.6 x 1.2 cm previously. Thyroid: Diminutive in size. Axillae: No enlarged lymph nodes. Chest Wall: A right subpectoral lymph node measures approximately 1.5 x 1.2 cm (2/14) decreased from 2.1 x 1.5 cm previously. Lungs and Airways: Multiple bilateral pulmonary lesions are redemonstrated. Time Checker left upper lobe mass measures 3.8 x 2.7 cm (3/120), decreased from 3.8 x 3.3 cm on the prior study with increased necrosis seen on the current exam. A medial left upper lobe mass extending to the pleura measures approximately 3.3 x 1.9 cm (2/18), increased from 2.8 x 1.8 cm previously. Time Checker right lower lobe mass measures 3.4 x 3.2 cm (3/189), slightly increased from 3.3 x 3.0 cm on the prior study although there is increased central necrosis with associated foci of gas on the current study. Right upper lobe nodule measures 1.7 x 1.5 cm (3/67) similar in size to the prior study but with increased central necrosis. Additional bilateral nodules also appear similar in size with increased necrosis compared to the prior study. Medial confluent opacities are redemonstrated bilaterally consistent with post radiation changes. The trachea and central airways appear patent. There is mild extrinsic mass effect on the elise and right mainstem bronchus from necrotic mediastinal lymph nodes. Pleura: There are minimal bilateral pleural effusions, similar to the prior study. No pneumothorax. Heart: Heart size is normal. No pericardial effusion. Thoracic Vessels: The aorta and pulmonary arteries demonstrate normal size. Mediastinum and Denae: Multiple enlarged mediastinal lymph nodes demonstrate increased central necrosis compared to the prior study. A service support representative confluent subcarinal nikole mass measures 1.6 x 1.6 cm (09/30), increased in size from 1.5 x 1.4 cm previously. Esophagus: No wall thickening. No hiatal hernia. ABDOMEN: Liver: Multiple peripherally enhancing heterogeneous necrotic mass lesions are redemonstrated within the liver. Large dominant mass in the left hepatic lobe centered in segments 2 and 3 measures up to 6.9 x 6.8 cm (2), increased from 6.0 x 5.5 cm previously. There is also interval increase in size and number of adjacent small satellite masses in the left lobe as well as a new mass in segment 6 of the right lobe measuring up to 1.2 x 1.2 cm (). Findings are compatible with progression of hepatic metastatic disease. Gallbladder: Surgically absent. Biliary ducts: Unremarkable. Pancreas: Unremarkable. Spleen: Surgically absent. Adrenal Glands: There is increase in size of bilateral adrenal nodules measuring up to 1.6 x 1.2 cm on the left compatible with metastatic disease. Kidneys and Ureters: No hydronephrosis. Stomach and Bowel: Stomach, small bowel loops, and colon demonstrate normal caliber and wall thickness. There is a small amount of free fluid in the pelvis. Peritoneum: No abnormal intraperitoneal fluid. No free air. Ventral Wall: No hernia. Abdominal Nodes: No retroperitoneal or mesenteric adenopathy by size criteria. Multiple surgical clips are redemonstrated in the mesentery and retroperitoneum. Vessels: Aorta and inferior vena cava are normal in size. PELVIS: Pelvic Organs: Unremarkable. Bladder: Unremarkable. Pelvic Nodes: No enlarged lymph nodes. Miscellaneous: No inguinal hernias are seen. Bones: Sclerotic indistinct lesion within the sternum appears similar in size and morphology compared to the prior study and is again consistent with metastatic disease. IMPRESSION: 1. Overall mixed interval response to therapy. This includes mixed response to therapy of multiple metastatic lesions in the lungs which demonstrate slight interval increase or decrease in size but overall progressive increased necrosis. Slight interval increase in size also demonstrated within right supraclavicular and mediastinal lymph nodes which also demonstrate increased central necrosis. There is also increase in size and number of multiple hepatic metastases as well as increased bilateral adrenal metastases. There is decrease in size of a right subpectoral lymph node and unchanged appearance of a sternal metastasis. 2. Minimal bilateral pleural effusions. 3. Post radiation changes redemonstrated medially within the lungs. Dictated by: Casey Kennedy M.D. on 02/09/2021 at 15:27 Approved by: Casey Kennedy M.D. on 02/09/2021 at 15:55
== END ==
PROVIDERS: Family Provider Physician Assistant; PCP Physician Assistant; Referring Provider Internal Medicine; Visit Provider Internal Medicine
DX: Z01.818 Encounter for other preprocedural examination (principal); C50.911 Malignant neoplasm of unspecified site of right female breast; C78.7 Secondary malignant neoplasm of liver and intrahepatic bile duct; C78.00 Secondary malignant neoplasm of unspecified lung; C79.51 Secondary malignant neoplasm of bone; C79.31 Secondary malignant neoplasm of brain; R59.0 Localized enlarged lymph nodes
CPT/HCPCS: 71260; 74177; Q9967

== ENCOUNTER → 2021-02-15 09:52 | Outpatient (CLI) | payer MEDICARE, SELFPAY ==
[2021-02-15 11:18] LABS: COVID19 -Nasal RAPID Negative (Negative)
== END ==
PROVIDERS: Family Provider Physician Assistant; PCP Physician Assistant; Visit Provider Specialist
DX: Z20.822 Contact with and (suspected) exposure to COVID-19 (principal)
CPT/HCPCS: 87635

== ENCOUNTER 2021-02-16 13:27 | Day surgery (SDC) | payer MEDICARE, SELFPAY ==
[2021-02-16] VITALS (7 sets, daily range): BP systolic 125–160; BP diastolic 58–77; PULSE 104–113; RESP 14–18; TEMP 36.2–37.3; O2SAT 97–99; BMI 19.3
--- NOTE | 2021-02-16 | DI.RAD.S_ITS ---
PROCEDURE: XR CHEST 1V INDICATIONS: POST OP PORT A CATH TECHNIQUE: One view of the chest was acquired. COMPARISON: Located [facility], CT, CT CHEST ABD PEL W CON, 02/09/2021, 10:22. Located [facility], CR, XR CHEST 2V, 12/15/2020, 12:34. FINDINGS: Surgical changes and devices: Left chest wall subclavian Port-A-Cath is demonstrated with the tip projecting over the the cavoatrial junction. Lungs and pleura: No evidence of pneumothorax. There is a persistent small left pleural effusion as seen on the recent prior CT. Multiple bilateral mass lesions are redemonstrated. These include left perihilar and right infrahilar mass is, right upper lobe nodule, and medial pleural thickening along the left upper lobe. The left lower lobe nodule seen on CT is not well visualized on the current study. Mediastinum: Mediastinal contours appear unchanged. Heart size is normal. Bones and chest wall: No suspicious bony lesions. Overlying soft tissues appear unremarkable. IMPRESSION: 1. No evidence of pneumothorax. 2. Persistent small left pleural effusion. 2. Bilateral mass lesions redemonstrated consistent with history of metastatic disease. Dictated by: Casey Kennedy M.D. on 02/17/2021 at 11:15 Approved by: Casey Kennedy M.D. on 02/17/2021 at 11:19
[2021-02-16] MEDS: LACTATED RINGERS 1,000 ML 42 ML IV (15:02)
--- NOTE | 2021-02-16 15:57 | PM.HP.1 ---
History of Present Illness History of Present Illness Chief complaint: [facility] Narrative: Patient is a woman with widely metastatic breast cancer about tight undergo chemotherapy. She is in need of a Port-A-Cath. Patient History Medical History Bone metastases Brain metastasis Breast cancer, right Hx of migraine headaches Iron deficiency anemia Liver metastases Lung metastases Surgical History History of splenectomy (1979) Hx of right mastectomy (06/2017) Hx of thyroidectomy (08/2018) Status post delivery Status post surgery (07/23/15) Family & Social History Social History: household members spouse Tobacco & Substance use: Smoking Status Never smoker alcohol intake current alcohol intake frequency holiday/special occasion Substance Use Type does not use Meds Home Medications and Allergies Home Medications Medication Instructions Recorded Confirmed Type aspirin 325 mg tablet 325 mg PO DAILY #0 09/09/10 02/15/21 History Bio Enzyme 5 tab PO DAILY 09/08/20 02/15/21 History Cordiceps 1 cap PO BID 09/08/20 02/15/21 History ascorbic acid (vitamin C) 25 mg 25 mg PO WEEKLY 09/08/20 02/15/21 History tablet cholecalciferol (vitamin D3) 125 250 mcg PO DAILY 09/08/20 02/15/21 History mcg (5,000 unit) tablet (Vitamin D3) coenzyme Q10 100 mg capsule 100 mg PO DAILY 09/08/20 02/15/21 History (CoQ-10) iodine 150 mcg tablet 150 mcg PO BID 09/08/20 02/15/21 History levothyroxine 125 mcg tablet 125 mcg PO DAILY 09/08/20 02/15/21 History melatonin 10 mg tablet,extended 20 mg PO PRN PRN 09/08/20 02/15/21 History release pyridoxine (vitamin B6) 50 mg 50 mg PO DAILY 09/08/20 02/15/21 History capsule (Vitamin B-6) vitamin B12 500 mcg-folic acid 400 2 tab PO DAILY 09/08/20 02/15/21 History mcg tablet hydrocodone 5 mg-acetaminophen 325 1 - 2 tab PO Q4H PRN #30 tab 12/06/20 02/15/21 Rx mg tablet lorazepam 1 mg tablet 0.5 mg PO Q6HR PRN #10 tab 12/29/20 02/15/21 Rx oxycodone 5 mg capsule 5 - 10 mg PO Q4H PRN #50 cap 12/29/20 02/15/21 Rx dexamethasone 4 mg tablet 4 mg PO BID #14 tab 01/10/21 02/15/21 Rx lidocaine 5 % topical patch 1 patch TOPICAL DAILY PRN #30 ea 01/10/21 02/15/21 Rx tramadol 50 mg tablet 50 mg PO Q6H PRN #20 tab 01/10/21 02/15/21 Rx albuterol sulfate 90 mcg/actuation 2 puff INHALATION Q4-6H PRN #8.5 g 01/13/21 02/15/21 Rx aerosol inhaler acyclovir 5 % topical cream 1 applic TOPICAL 5XD #10 g 02/02/21 02/15/21 Rx (Zovirax) dexamethasone 4 mg tablet 4 mg PO TID #75 tab 02/15/21 Rx lidocaine-prilocaine 2.5 %-2.5 % See Rx Instructions .ROUTE 02/15/21 Rx topical kit (Lido-Prilo Kodi Pack) .COMPLEX #7 ea Allergies Allergy/AdvReac Type Severity Reaction Status Date / Time No Known Drug Allergies Allergy Verified 09/08/20 11:43 Review of Systems Review of Systems Narrative: No chest pain heart problems or breathing issues. She had radiation to her brain but did not have any seizures though she did have some visual changes that have resolved. No black or bloody bowel movements. Exam Vital Signs (past 8 hours): - 02/16/21 14:53 Temperature 97.2 F L Pulse Rate 106 H Respiratory Rate 16 Blood Pressure 152/77 H Pulse Oximetry 99 Oxygen Delivery Method Room Air Narrative Exam Narrative: Cooperative in no apparent distress. Eyes are nonicteric. No nodes in the neck or supraclavicular areas. Trachea is midline mobile. She has a scar in her left base of neck from a lymph node biopsy. She has a history of lymphoma treated in the distant past. Patient's lungs are clear to auscultation. Heart regular rate and rhythm without murmur gallop. Abdomen is scaphoid soft nontender without mass. Assessment & Plan Assessment and plan (1) Breast cancer, right: Status: Acute (2) Lung metastases: Status: Acute (3) Bone metastases: Status: Acute (4) Liver metastases: Status: Acute (5) Brain metastasis: Status: Acute Assessment & Plan narrative: Plan is for Port-A-Cath placement. I have discussed the procedure with the patient. Risks of bleeding infection which is an ongoing wrist, DVT which could cause swelling in her arm her pulmonary embolism and pneumothorax which may require chest tube were all discussed with her. She appears to understand wishes to proceed.
--- NOTE | 2021-02-16 16:00 | SUR.OPER ---
Supine on padded OR bed, head on pillow, arms padded and tucked at sides, legs uncrossed, safety belt at thigh, tape over blanket over lower legs .
--- NOTE | 2021-02-16 16:06 | PM.PREOP ---
Pre-operative Note COVID-19 COVID-19 status: Negative Result date/Date tested (Pos, Neg/Pending): 02/15/21 Interval Note History & Physical reviewed/Exam performed by Physician: Yes Changes to H&P: No
[2021-02-16] MEDS: CEFAZOLIN 1 GM VIAL 2 GM IV (16:12)
[2021-02-16] MEDS: LIDOCAINE 1% 30 ML INJ (16:32)
[2021-02-16] MEDS: HEPARIN 5,000 UNIT, SODIUM CHLORIDE 0.9% 50 ML IV (16:33)
--- NOTE | 2021-02-16 17:07 | PM.OP.1 ---
Operative Date/Time/Diagnoses Date of procedure: 02/16/21 Time of procedure: 17:07 Pre-op diagnosis: Metastatic breast cancer Post-op diagnosis: same Procedure & Clinicians Procedure: Port-A-Cath placement left subclavian vein Same procedure as scheduled: Yes Surgeon: Zachery Adan Click Yes if Unassisted: Yes Anesthesia Type: General Operative Notes Findings: Tip in the SVC. No evidence of pneumothorax. Closure Type: primary Specimen(s): none sent Prosthetic devices, grafts, tissues, transplants, or devices: Slim Port-A-Cath Estimated Blood Loss (mL): 7 Blood products transfused: none Procedure in detail: Patient is placed supine on the operating room table and underwent general LMA anesthesia. She was prepped and draped in the usual fashion. A a roll had been placed between her shoulder blades. Local anesthetic was infiltrated in a field block fashion beneath the left clavicle. Patient is right-hand dominant. A transverse incision was made and carried through the subcu fat to the level the fascia. Pocket was created inferior to the incision. Needle was inserted in the subclavian vein. Guidewire was passed needle removed. The port was put together with the catheter and tapered to appropriate length. Reasons it was flushed with heparinized saline. It was inserted into the pocket. Dilator and introducer were passed over the guidewire visualizing it with fluoroscopy. The guidewire and dilator removed leaving in the introducer in place. The catheter was placed through the introducer and the introducer peeled away leaving the catheter in good position in the distal SVC. The port was aspirated easily and flushed with heparinized saline. It was secured to the chest wall with interrupted 2-0 silk suture. Subcu was closed with interrupted 3-0 Vicryl skin closed running 4-0 Vicryl subcuticular stitch and Steri-Strips. Dressing was applied and the patient was taken to the recovery area awake and extubated in good condition. Postprocedure x-ray revealed the tip in the distal SVC ears junction with the atrium and no evidence of pneumothorax. Complications: none Post-operative Condition: stable Disposition: PACU
--- NOTE | 2021-02-16 17:24 | SUR.PHASEII ---
CXR done and seen by Dr Adan.
--- NOTE | 2021-02-16 18:20 | SUR.PHASEII ---
[id number] Patient stable, Dressing CDI, patient pleasant, tearful at times. Ambulated to the bathroom, stable on her feet.
== END 2021-02-16 17:59 | disposition home or self-care (01) ==
PROVIDERS: Family Provider Physician Assistant; PCP Physician Assistant; Referring Provider Specialist; Visit Provider Specialist
PROC: (CPT 36561; principal; 2021-02-16 15:00)
DX: C50.911 Malignant neoplasm of unspecified site of right female breast (principal); C79.51 Secondary malignant neoplasm of bone; C78.7 Secondary malignant neoplasm of liver and intrahepatic bile duct; C79.31 Secondary malignant neoplasm of brain; C78.00 Secondary malignant neoplasm of unspecified lung
CPT/HCPCS: 36561; 71045; 76000; C1788; J0690; J1644; J2405; J2704; J3010

== ENCOUNTER 2021-02-25 18:20 | Emergency (ER) | payer MEDICARE, SELFPAY ==
[2021-02-25 18:25] VITALS: BP 112/56; PULSE 110; RESP 18; TEMP 36.8; O2SAT 96; BMI 18.8
[2021-02-25] MEDS: ONDANSETRON 4 MG/2 ML INJ IV (18:51)
[2021-02-25 19:09] LABS: Add Manual Diff / Slide Review NO; Basophils Absolute Auto 100 /uL (0-100); Basophils Percent Auto 0.4 % (0-2); Eosinophils Absolute Auto 0 /uL (0-450); Eosinophils Percent Auto 0.1 % (2-4); Hemoglobin 12.7 g/dL (12.0-16.0); Lymphocytes Absolute Auto 200 /uL (1100-4500); Lymphocytes Percent Auto 1.5 % (25-40); Mean Corpuscular HGB Conc 33.3 % (30-36); Mean Corpuscular Hemoglobin 32.4 PG (26-34); Mean Corpuscular Volume 97.3 fL (80-100); Monocytes Absolute Auto 100 /uL (0-900); Monocytes Percent Auto 0.4 % (3-14); Neutrophils Absolute Auto 15500 /uL (1500-7000); Neutrophils Percent Auto 97.6 % (50-75); Platelet Count 338 X10^3/uL (150-400); Red Cell Distribution Width 16.1 % (11.6-14.8); White Blood Cell Count 15.9 X10^3/uL (4.5-11.0)
[2021-02-25 19:20] LABS: Alanine Aminotransferase 43 IU/L (<35); Albumin 3.4 g/dL (3.5-5.0); Albumin Globulin Ratio 1.1 (1.0-2.8); Alkaline Phosphatase 106 U/L (38-126); Aspartate Aminotransferase 47 IU/L (14-36); BUN Creatinine Ratio 29.2 (6-22); Bilirubin Total 0.8 mg/dL (0.2-1.3); Blood Urea Nitrogen 14 mg/dL (7-17); Carbon Dioxide 24 mmol/L (22-32); Chloride 101 mmol/L (98-107); Estimated Glomerular Filt Rate > 60.0 mL/min (>60); Glucose 152 mg/dL (80-110); HEMOLYSIS < 15 (0-50); Lipase 12 U/L (23-300); Potassium 4.3 mmol/L (3.4-5.1); Sodium 130 mmol/L (137-145); Total Protein 6.4 g/dL (6.3-8.2)
--- NOTE | 2021-02-25 19:56 | ED.NAVMDI ---
HPI - Nausea/Vomiting/Diarrhea General Chief complaint: Nausea/Vomiting/Diarrhea Stated complaint: CHEMO TWO DAYS AGO NOT WELL NAUSEA Time Seen by Provider: 02/25/21 19:56 Source: patient Mode of arrival: Wheelchair Limitations: no limitations History of Present Illness HPI Narrative: Patient is a 66-year-old female with metastatic breast cancer who 2 days ago underwent her 1st dose of chemotherapy. She has been receiving radiation up to this point. She does have nausea medication at home but since she had the chemotherapy she has been extremely nauseous and also vomiting. No fevers. Her medicines at home were not controlling her symptoms so she came to the emergency department for further evaluation. Related Data Home Medications Medication Instructions Recorded Confirmed levothyroxine 125 mcg tablet 125 mcg PO DAILY 09/08/20 02/15/21 melatonin 10 mg tablet,extended 20 mg PO PRN PRN 09/08/20 02/15/21 release pyridoxine (vitamin B6) 50 mg 50 mg PO DAILY 09/08/20 02/15/21 capsule (Vitamin B-6) vitamin B12 500 mcg-folic acid 400 2 tab PO DAILY 09/08/20 02/15/21 mcg tablet Previous Rx's Medication Instructions Recorded hydrocodone 5 mg-acetaminophen 325 1 - 2 tab PO Q4H PRN #30 tab 12/06/20 mg tablet oxycodone 5 mg capsule 5 - 10 mg PO Q4H PRN #50 cap 12/29/20 dexamethasone 4 mg tablet 4 mg PO TID #75 tab 02/15/21 lidocaine-prilocaine 2.5 %-2.5 % See Rx Instructions .ROUTE 02/15/21 topical kit (Lido-Prilo Kodi Pack) .COMPLEX #7 ea lorazepam 1 mg tablet 0.5 mg PO Q6HR PRN #10 tab 02/23/21 Allergies Allergy/AdvReac Type Severity Reaction Status Date / Time No Known Drug Allergies Allergy Verified 02/25/21 18:29 Review of Systems Constitutional Constitutional: Denies fever(s) Eyes Eyes: Reports system reviewed and no additional complaints, except as documented Cardiovascular Cardiovascular: Reports system reviewed and no additional complaints, except as documented Respiratory Respiratory: Reports system reviewed and no additional complaints, except as documented Gastrointestinal Gastrointestinal: Reports as per HPI Genitourinary Genitourinary: Reports system reviewed and no additional complaints, except as documented Musculoskeletal Musculoskeletal: Reports system reviewed and no additional complaints, except as documented Integumentary/Breasts Skin/Breast: Reports system reviewed and no additional complaints, except as documented Neurologic Neurologic: Reports system reviewed and no additional complaints, except as documented Psychiatric Psychiatric: Reports system reviewed and no additional complaints, except as documented Hematologic/Lymphatic On Anticoagulants: No Allergic/Immunologic Allergic/Immunologic: Reports system reviewed and no additional complaints, except as documented Patient History Medical History Bone metastases Brain metastasis Breast cancer, right Hx of migraine headaches Iron deficiency anemia Liver metastases Lung metastases Surgical History History of splenectomy (1979) Hx of right mastectomy (06/2017) Hx of thyroidectomy (08/2018) Status post delivery Status post surgery (07/23/15) Social History household members: spouse Smoking Status: Never smoker alcohol intake: current Smoking Status: Never smoker alcohol intake frequency: holidays/special occasions only Substance Use Type: does not use Exam Initial Vital Signs Initial Vital Signs: Vital Signs Temperature 98.3 F 02/25/21 18:25 Pulse Rate 110 H 02/25/21 18:25 Respiratory Rate 18 02/25/21 18:25 Blood Pressure 112/56 L 02/25/21 18:25 Pulse Oximetry 96 02/25/21 18:25 Const General: cooperative and comfortable HENMT Head: normal to inspection and normocephalic Eyes General: appearance normal, both eyes and all related structures Resp Effort & Inspection: normal respiratory effort Cardio Rate: regular rate GI Inspection: normal to inspection Skin General: no rashes or lesions noted Neuro General: patient alert, patient awake, patient oriented x3 and moves all extremities Extrem General: normal to inspection Psych Appearance: grossly normal and well kempt Course Orders Ordered: ED Orders 02/25/21 18:55 Complete Blood Count AUTO DIFF Stat Comprehensive Metabolic Panel Stat Lipase Stat 02/25/21 19:55 Urine Microscopic Stat Discontinued Medications Ibuprofen (Ibuprofen 400 Mg Tablet) 400 mg PO NOW ONE Stop: 02/25/21 20:37 Last Admin: 02/25/21 20:43 Dose: 400 mg Documented by: YONG Ondansetron HCl (Ondansetron 4 Mg/2 Ml Inj) 4 mg IV NOW ONE Stop: 02/25/21 18:45 Last Admin: 02/25/21 18:51 Dose: 4 mg Documented by: SHAUN Vital Signs Vital signs: Vital Signs - 8 hr 02/25/21 21:11 Pulse Rate 94 H Respiratory Rate 18 Blood Pressure 130/63 Pulse Oximetry 94 MDM - Nausea/Vomiting/Diarrhea Lab Data Attestation: I reviewed the patient's lab results. Result diagrams: 02/25/21 18:55 02/25/21 18:55 Labs: Lab Results 02/25/21 02/25/21 02/25/21 Range/Units 18:55 18:55 19:55 WBC 15.9 H (4.5-11.0) X10^3/uL RBC 3.90 L (4.0-5.2) X10^6/uL Hgb 12.7 (12.0-16.0) g/dL Hct 38.0 (36-46) % MCV 97.3 (80-100) fL MCH 32.4 (26-34) PG MCHC 33.3 (30-36) % RDW 16.1 H (11.6-14.8) % Plt Count 338 (150-400) X10^3/uL Neut % (Auto) 97.6 H (50-75) % Lymph % (Auto) 1.5 L (25-40) % [place] % (Auto) 0.4 L (3-14) % Eos % (Auto) 0.1 L (2-4) % Baso % (Auto) 0.4 (0-2) % Neut # (Auto) 34599 H (3744-0246) /uL Lymph # (Auto) 200 L (4921-8564) /uL [place] # (Auto) 100 (0-900) /uL Eos # (Auto) 0 (0-450) /uL Baso # (Auto) 100 (0-100) /uL Sodium 130 L (137-145) mmol/L Potassium 4.3 (3.4-5.1) mmol/L Chloride 101 (98-107) mmol/L Carbon Dioxide 24 (22-32) mmol/L BUN 14 (7-17) mg/dL Creatinine 0.48 L (0.52-1.04) mg/dL Estimated GFR > 60.0 (>60) mL/min BUN/Creatinine Ratio 29.2 H (6-22) Glucose 152 H (80-110) mg/dL Calcium 9.0 (8.4-10.2) mg/dL Total Bilirubin 0.8 (0.2-1.3) mg/dL AST 47 H (14-36) IU/L ALT 43 H (<35) IU/L Alkaline Phosphatase 106 (38-126) U/L Total Protein 6.4 (6.3-8.2) g/dL Albumin 3.4 L (3.5-5.0) g/dL Globulin 3.0 (1.7-4.1) g/dL Albumin/Globulin Ratio 1.1 (1.0-2.8) Lipase 12 L (23-300) U/L Urine RBC 1-5/hpf (0-5/HPF) Urine WBC None seen (0-5/HPF) Ur Transition Epith Cell 1-5/hpf (0-5/HPF) Urine Bacteria None seen (None) Ur Culture Indicated? Cult not indicated Urine Dip Bedside Urine Glucose Negative Bedside Urine Bilirubin - Negative Bedside Urine Ketone + 15 Urine Specific [place] 1.015 Bedside Urine Occult Blood - Negative Bedside Urine pH 6 Bedside Urine Protein - Negative Bedside Urine Urobilinogen - Negative Bedside Urine Nitrite - Negative Bedside Urine Leukocytes - Negative Esterase MDM Narrative Medical decision making narrative: Prior to my evaluation the patient did receive IV Zofran which she states improved her symptoms tremendously. She felt much better afterwards. Was tolerating oral intake. Does have a leukocytosis however this could be stress reaction given her vomiting that she has been having. I have low suspicion for infection. We did discuss her medications that she has at home for nausea. The Zofran that she has currently states she can take 1 tablet every 8 hours. Informed her that she could schedule this medication rather than using it as needed in she could also take it more often if needed. She also has other medications at home that she can take. Patient states she feels much better and feels like she can be discharged home with how she is feeling now. She was given strict return precautions and follow-up instructions. She expressed understanding and agreement. Discharge Plan Departure Patient Disposition: Home Clinical Impression: Nausea Instructions: DI for Nausea -- Adult Activity Restrictions/Additional Instructions: I do recommend that you schedule the Zofran/ondansetron. You can take 1 tablet every 6 hours. You can do it every 4 hours as needed for the nausea. Be sure to increase your fluid intake. Contact your oncologist for follow-up. Return to the emergency department for any new or worsening symptoms Prescriptions: No Action levothyroxine 125 mcg Tablet 125 mcg PO DAILY RF: 0 melatonin 10 mg Tablet Extended Release 20 mg PO PRN PRN (Reason: Insomnia) RF: 0 vitamin P93-yytrj acid 500-400 mcg Tablet 2 tab PO DAILY RF: 0 Vitamin B-6 50 mg Capsule 50 mg PO DAILY RF: 0 hydrocodone-acetaminophen 5-325 mg Tablet 1 - 2 tab PO Q4H PRN (Reason: Pain (Scale Score 4-6)) Qty: 30 RF: 0 oxycodone 5 mg Capsule 5 - 10 mg PO Q4H PRN (Reason: Pain (Scale Score 4-6)) Qty: 50 RF: 0 lidocaine-prilocaine [Lido-Prilo [place] Pack] 2.5-2.5 % Kit See Rx Instructions .ROUTE .COMPLEX Qty: 7 RF: 0 dexamethasone 4 mg Tablet 4 mg PO TID Qty: 75 RF: 1 lorazepam 1 mg Tablet 0.5 mg PO Q6HR PRN (Reason: insomnia) Qty: 10 RF: 2 Referrals: Shari Cardenas PA-C [Primary Care Provider] -
[2021-02-25 19:57] LABS: Bacteria Urine None Seen; WBC Urine None Seen (0-5/HPF)
[2021-02-25 20:08] LABS: Culture Indicated Urine Cult Not Indicated; RBC Urine 1-5/HPF (0-5/HPF); Transitional Epi Cells Urine 1-5/HPF (0-5/HPF)
[2021-02-25] MEDS: IBUPROFEN 400 MG TABLET PO (20:43)
[2021-02-25 21:11] VITALS: BP 130/63; PULSE 94; RESP 18; O2SAT 94
== END 2021-02-25 21:12 | disposition home or self-care (01) ==
PROVIDERS: Emergency Provider Emergency Medicine; Family Provider Physician Assistant; PCP Physician Assistant
DX: R11.2 Nausea with vomiting, unspecified (principal); C50.911 Malignant neoplasm of unspecified site of right female breast
CPT/HCPCS: 36415; 80053; 81003; 81015; 83690; 85025; 96374; 99284; J2405

== ENCOUNTER 2021-03-03 18:35 | Emergency (ER) | payer MEDICARE, SELFPAY ==
[2021-03-03 19:23] VITALS: BP 137/60; PULSE 104; RESP 20; TEMP 36.9; O2SAT 95; BMI 18.8
[2021-03-03] MEDS: ONDANSETRON 4 MG/2 ML INJ IV (19:57)
[2021-03-03] MEDS: LIDOCAINE 1% (PF) 2 ML (19:57)
[2021-03-03] MEDS: SODIUM CHLORIDE 0.9% 1,000 ML 1000 ML IV ×2 (19:57→22:00)
[2021-03-03 20:36] LABS: Add Manual Diff / Slide Review NO; Basophils Absolute Auto 0 /uL (0-100); Basophils Percent Auto 0.2 % (0-2); Eosinophils Absolute Auto 0 /uL (0-450); Hemoglobin 11.5 g/dL (12.0-16.0); Lymphocytes Absolute Auto 100 /uL (1100-4500); Lymphocytes Percent Auto 1.7 % (25-40); Mean Corpuscular HGB Conc 32.8 % (30-36); Mean Corpuscular Hemoglobin 31.6 PG (26-34); Mean Corpuscular Volume 96.3 fL (80-100); Monocytes Absolute Auto 100 /uL (0-900); Monocytes Percent Auto 1.1 % (3-14); Neutrophils Absolute Auto 7800 /uL (1500-7000); Platelet Count 248 X10^3/uL (150-400); Red Blood Cell Count 3.63 X10^6/uL (4.0-5.2); Red Cell Distribution Width 16.1 % (11.6-14.8)
[2021-03-03 20:47] LABS: Alanine Aminotransferase 42 IU/L (<35); Albumin 3.1 g/dL (3.5-5.0); Alkaline Phosphatase 130 U/L (38-126); Aspartate Aminotransferase 55 IU/L (14-36); BUN Creatinine Ratio 24.4 (6-22); Bilirubin Total 0.5 mg/dL (0.2-1.3); Blood Urea Nitrogen 11 mg/dL (7-17); Calcium 8.1 mg/dL (8.4-10.2); Carbon Dioxide 23 mmol/L (22-32); Chloride 102 mmol/L (98-107); Estimated Glomerular Filt Rate > 60.0 mL/min (>60); Glucose 112 mg/dL (80-110); HEMOLYSIS < 15 (0-50); Potassium 4.2 mmol/L (3.4-5.1); Sodium 133 mmol/L (137-145); Total Protein 6.1 g/dL (6.3-8.2)
[2021-03-03] MEDS: diphenhydrAMINE 50 MG/ML VIAL 25 MG IV (21:58)
[2021-03-03] MEDS: HALOPERIDOL 5 MG/ML VIAL 2 MG IV (21:59)
[2021-03-04] MEDS: PRAMIPEXOLE 0.25 MG TABLET PO (00:09)
--- NOTE | 2021-03-04 01:21 | ED_ITS ---
HPI - Nausea/Vomiting/Diarrhea General Chief complaint: Nausea/Vomiting/Diarrhea Stated complaint: nausea, chemo Time Seen by Provider: 03/03/21 19:45 Source: patient and family Mode of arrival: Wheelchair Limitations: no limitations History of Present Illness HPI Narrative: 66-year-old woman with a history of metastatic breast cancer currently post radiation and now on 2nd dose of chemotherapy. She is having sev ere nausea, food aversion and has lost 16 lb(down to 100 lb current) over the last 2-3 weeks. She comes in for further evaluation and help. Continues to vomit with severe nausea and is becoming completely overwhelmed with her treatment, symptoms and prognosis at this point. Her exceptionally supportive accompanies her to the emergency room today. She notes that she has not had fevers. She has a dry cough that is been present for well over a urine has not changed. She is having no specific chest pain. No acute neurologic changes. She notes that her skin is quite dry but has not appreciated any rashes or superficial infection concerns. She is continuing to void without dysuria or frequency. She is having minimal bowel movements and minimal caloric intake over the last number of weeks. Related Data Home Medications Medication Instructions Recorded Confirmed levothyroxine 125 mcg tablet 125 mcg PO DAILY 09/08/20 02/15/21 melatonin 10 mg tablet,extended 20 mg PO PRN PRN 09/08/20 02/15/21 release pyridoxine (vitamin B6) 50 mg 50 mg PO DAILY 09/08/20 02/15/21 capsule (Vitamin B-6) vitamin B12 500 mcg-folic acid 400 2 tab PO DAILY 09/08/20 02/15/21 mcg tablet Previous Rx's Medication Instructions Recorded hydrocodone 5 mg-acetaminophen 325 1 - 2 tab PO Q4H PRN #30 tab 12/06/20 mg tablet oxycodone 5 mg capsule 5 - 10 mg PO Q4H PRN #50 cap 12/29/20 dexamethasone 4 mg tablet 4 mg PO TID #75 tab 02/15/21 lidocaine-prilocaine 2.5 %-2.5 % See Rx Instructions .ROUTE 02/15/21 topical kit (Lido-Prilo Kodi Pack) .COMPLEX #7 ea lorazepam 1 mg tablet 0.5 mg PO Q6HR PRN #10 tab 02/23/21 dexamethasone 4 mg tablet 4 mg PO BID PRN #6 tab 03/03/21 pramipexole 0.125 mg tablet 0.125 mg PO BEDTIME #30 tab 03/04/21 (Mirapex) promethazine 25 mg rectal 25 mg VT Q4-6H PRN #12 ea 03/04/21 suppository Allergies Allergy/AdvReac Type Severity Reaction Status Date / Time No Known Drug Allergies Allergy Verified 02/25/21 18:29 Review of Systems Review of Systems Narrative: Remainder of complete review of systems is otherwise unremarkable except for that included in the HPI. Patient History Medical History Bone metastases Brain metastasis Breast cancer, right Hx of migraine headaches Iron deficiency anemia Liver metastases Lung metastases Surgical History History of splenectomy (1979) Hx of right mastectomy (06/2017) Hx of thyroidectomy (08/2018) Status post delivery Status post surgery (07/23/15) Social History household members: spouse Smoking Status: Never smoker alcohol intake: current Smoking Status: Never smoker alcohol intake frequency: holidays/special occasions only Substance Use Type: does not use Exam Narrative Exam Narrative: General: Frail appearing but Able to give a complete and coherent history. HEENT: Moist mucous membranes, normal sclera with reactive pupils, Respiratory: Lungs are clear to auscultation, no wheezing no rales no rhonchi. Full and symmetrical air movement Cardiac: Regular rate and rhythm no murmurs no bruits Abdomen: Scaphoid, nontender, no flank pain Skin: Warm and dry, no rashes Neurologic: Grossly neurologically intact with no obvious asymmetries or abnormalities Psych: Cooperative, anxious and frightened Initial Vital Signs Initial Vital Signs: Vital Signs Temperature 98.4 F 03/03/21 19:23 Pulse Rate 104 H 03/03/21 19:23 Respiratory Rate 20 03/03/21 19:23 Blood Pressure 137/60 03/03/21 19:23 Pulse Oximetry 95 03/03/21 19:23 Course Orders Ordered: Discontinued Medications Diphenhydramine HCl (Diphenhydramine 50 Mg/Ml Vial) 25 mg IV NOW ONE Stop: 03/03/21 21:42 Last Admin: 03/03/21 21:58 Dose: 25 mg Documented by: AMISH Haloperidol (Haloperidol 5 Mg/Ml Vial) 2 mg IV NOW ONE Stop: 03/03/21 21:42 Last Admin: 03/03/21 21:59 Dose: 2 mg Documented by: AMISH Sodium Chloride (Normal Saline 0.9%) 1,000 mls @ 1,000 mls/hr IV BOLUS ONE Stop: 03/03/21 20:45 Last Infusion: 03/03/21 22:01 Dose: 0 mls/hr Documented by: Admin: 03/03/21 19:57 Dose: 1,000 mls/hr Documented by: AMISH Sodium Chloride (Normal Saline 0.9%) 1,000 mls @ 1,000 mls/hr IV BOLUS ONE Stop: 03/03/21 22:40 Last Infusion: 03/04/21 00:56 Dose: 0 mls/hr Documented by: Admin: 03/03/21 22:00 Dose: 1,000 mls/hr Documented by: AMISH Ondansetron HCl (Ondansetron 4 Mg/2 Ml Inj) 4 mg IV NOW ONE Stop: 03/03/21 19:47 Last Admin: 03/03/21 19:57 Dose: 4 mg Documented by: AMISH Pramipexole Dihydrochloride (Pramipexole 0.25 Mg Tablet) 0.25 mg PO NOW ONE Stop: 03/03/21 23:55 Last Admin: 03/04/21 00:09 Dose: 0.25 mg Documented by: AMISH Vital Signs Vital signs: Vital Signs - 8 hr 03/03/21 19:23 Temperature 98.4 F Pulse Rate 104 H Respiratory Rate 20 Blood Pressure 137/60 Pulse Oximetry 95 MDM - Nausea/Vomiting/Diarrhea Lab Data Result diagrams: 03/03/21 20:17 03/03/21 20:17 Labs: Lab Results 03/03/21 03/03/21 Range/Units 20:17 20:17 WBC 8.0 D (4.5-11.0) X10^3/uL RBC 3.63 L (4.0-5.2) X10^6/uL Hgb 11.5 L (12.0-16.0) g/dL Hct 35.0 L (36-46) % MCV 96.3 (80-100) fL MCH 31.6 (26-34) PG MCHC 32.8 (30-36) % RDW 16.1 H (11.6-14.8) % Plt Count 248 (150-400) X10^3/uL Neut % (Auto) 97.0 H (50-75) % Lymph % (Auto) 1.7 L (25-40) % [place] % (Auto) 1.1 L (3-14) % Eos % (Auto) 0.0 L (2-4) % Baso % (Auto) 0.2 (0-2) % Neut # (Auto) 7800 H (8764-0218) /uL Lymph # (Auto) 100 L (1781-5649) /uL [place] # (Auto) 100 (0-900) /uL Eos # (Auto) 0 (0-450) /uL Baso # (Auto) 0 (0-100) /uL Sodium 133 L (137-145) mmol/L Potassium 4.2 (3.4-5.1) mmol/L Chloride 102 (98-107) mmol/L Carbon Dioxide 23 (22-32) mmol/L BUN 11 (7-17) mg/dL Creatinine 0.45 L (0.52-1.04) mg/dL Estimated GFR > 60.0 (>60) mL/min BUN/Creatinine Ratio 24.4 H (6-22) Glucose 112 H (80-110) mg/dL Calcium 8.1 L (8.4-10.2) mg/dL Total Bilirubin 0.5 (0.2-1.3) mg/dL AST 55 H (14-36) IU/L ALT 42 H (<35) IU/L Alkaline Phosphatase 130 H (38-126) U/L Total Protein 6.1 L (6.3-8.2) g/dL Albumin 3.1 L (3.5-5.0) g/dL Globulin 3.0 (1.7-4.1) g/dL Albumin/Globulin Ratio 1.0 (1.0-2.8) MDM Narrative Medical decision making narrative: 66-year-old woman with history of breast cancer metastatic to brain, liver and lung with significant chemotherapy nausea and loss of appetite. In the emergency department she is given 2 L of fluid IV Zofran, 2 mg of IV Haldol and 25 mg of Benadryl. After this combination is had a chance to settle, she notes that she actually is feeling moderately better and is able to drink an entire glass of water as well as 2 saltine crackers. We talked about the importance of calories in rather than the absolute nutritional value of the calories. We also briefly talked about what she should do regarding her next chemotherapy. She is currently on a 2 weeks on 1 week off so the next round will not be for approximately 12 days. I encouraged her to talk with her family as well as her cancer care providers a so that she is making decisions sitter appropriate for her goals with the remainder of her life and medical care. She and her had multiple questions, all were answered and she is discharged home. I have given her prescription for Phenergan suppositories to use if the oral medications are not effective as well as Mirapex as this was helpful in dealing with her restless leg syndrome. She is safe for home discharge Discharge Plan Departure Patient Disposition: Home Clinical Impression: Restless leg syndrome, Malignant neoplasm metastatic to bone Intractable vomiting Qualifiers: Vomiting type: unspecified Nausea presence: with nausea Qualified Code(s): R11.2 - Nausea with vomiting, unspecified Breast cancer, right Qualifiers: Breast location: unspecified site of breast Estrogen receptor status: unspecified Patient sex: female Qualified Code(s): C50.911 - Malignant neoplasm of unspecified site of right female breast Instructions: DI for Vomiting -- Adult Activity Restrictions/Additional Instructions: Thank you for coming in this evening I am so sorry this has been so challenging for you In the ER your given 2 L of fluid, IV Zofran, IV Haldol 2 mg and 25 mg of IV Benadryl. You are also given 0.25 mg of Mirapex for your restless leg syndrome. This combination seem to help somewhat with your nausea and you were able to drink some water and eat a couple of crackers. I have written out a list of your medications with the order to try the nausea medications in. Your suggested scheduling the Zofran and I think that is a great idea. I would suggest 2 pills at 6:00 a.m. and then 1 pill every 6 hours You can use the prochlorperazine as needed I am also going to give you a prescription for Phenergan/promethazine in suppository form - to use if the vomiting doesn't stop. With your restless leg syndrome, using .125 mg of miapex/pramipexole about 2 hours before bed can be helpful. These two new prescriptions have been electronically [facility] to [facility] for you today. I wish you the very best Prescriptions: New promethazine 25 mg suppository 25 mg VT Q4-6H PRN (Reason: nausea and vomiting) Qty: 12 RF: 1 pramipexole [Mirapex] 0.125 mg tablet 0.125 mg PO BEDTIME Qty: 30 RF: 0 No Action levothyroxine 125 mcg Tablet 125 mcg PO DAILY RF: 0 melatonin 10 mg Tablet Extended Release 20 mg PO PRN PRN (Reason: Insomnia) RF: 0 vitamin B50-gqkfp acid 500-400 mcg Tablet 2 tab PO DAILY RF: 0 Vitamin B-6 50 mg Capsule 50 mg PO DAILY RF: 0 hydrocodone-acetaminophen 5-325 mg Tablet 1 - 2 tab PO Q4H PRN (Reason: Pain (Scale Score 4-6)) Qty: 30 RF: 0 oxycodone 5 mg Capsule 5 - 10 mg PO Q4H PRN (Reason: Pain (Scale Score 4-6)) Qty: 50 RF: 0 lidocaine-prilocaine [Lido-Prilo [place] Pack] 2.5-2.5 % Kit See Rx Instructions .ROUTE .COMPLEX Qty: 7 RF: 0 dexamethasone 4 mg Tablet 4 mg PO TID Qty: 75 RF: 1 lorazepam 1 mg Tablet 0.5 mg PO Q6HR PRN (Reason: insomnia) Qty: 10 RF: 2 dexamethasone 4 mg Tablet 4 mg PO BID PRN (Reason: Nausea) Qty: 6 RF: 0 Referrals: Shari Cardenas PA-C [Primary Care Provider] -
[2021-03-04 01:39] VITALS: BP 115/59; PULSE 95; RESP 20; O2SAT 96
== END 2021-03-04 01:42 | disposition home or self-care (01) ==
PROVIDERS: Emergency Provider Emergency Medicine; Family Provider Physician Assistant; PCP Physician Assistant
DX: R11.2 Nausea with vomiting, unspecified (principal); C50.911 Malignant neoplasm of unspecified site of right female breast; G25.81 Restless legs syndrome; C79.51 Secondary malignant neoplasm of bone
CPT/HCPCS: 36415; 80053; 85025; 96361; 96374; 96375; 96523; 99284; J1100; J1200; J1630; J2405

== ENCOUNTER 2021-03-13 11:25 | Inpatient (IN) | payer MEDICARE, SELFPAY ==
[2021-03-13] VITALS (15 sets, daily range): BP systolic 120–161; BP diastolic 59–102; PULSE 64–102; RESP 14–28; TEMP 36.8–37.6; O2SAT 92–100; BMI 16.8
--- NOTE | 2021-03-13 11:43 | DI.CT.S_ITS ---
PROCEDURE: CT ANGIO HEAD AND NECK INDICATIONS: slurring of speech TECHNIQUE: Noncontrast images were performed earlier in the day and not repeated. After the administration of intravenous contrast, 1 mm thick sections acquired from the aortic arch through the [place]. Post-contrast 4.5 mm thick sections then re-acquired from the foramen magnum to the vertex. 3-dimensional [id number] (MIP) and/or volume rendering reformats were acquired of the central intracranial vasculature and neck separately. COMPARISON: [facility], CT, CT CHEST ABD PEL W CON, 02/09/2021, 10:22. [facility], CT, CT STROKE, 03/13/2021, 11:38. [facility], CT, CT HEAD/BRAIN WO CON, 01/10/2021, 16:22. [facility], MR, MR HEAD/BRAIN WO/W CON, 01/07/2021, 8:33. FINDINGS: Image quality: Excellent. BRAIN: CSF spaces: Ventricles are normal in size and shape. Basal cisterns are patent. No extra-axial fluid collections. Brain: No midline shift. No intracranial bleeds. There is faint visualization of a rim enhancing mass seen within the right temporal lobe, as on series 10, image 231, measuring 6 mm. The previously seen intracranial masses are no longer definitely seen by CT. A small amount of scattered brain edema can be seen, which is also improved compared to the prior imaging. [place]-white matter interface appears intact. Skull and face: Calvarium and facial bones appear intact, without suspicious lesions. Orbits appear normal. Sinuses: Sinuses and mastoids are clear. HEAD CT ANGIOGRAPHY: Anterior circulation: Intracranial internal carotid arteries are normal in size and flow. The flow within the paired anterior cerebral arteries is normal and symmetric. The flow within the middle cerebral arteries is normal and symmetric. The anterior communicating artery is seen. No aneurysms are seen. Posterior circulation: The right V4 segment is dominant to the left. The vertebral arteries join to form a normal appearing basilar artery. There is a prominent right posterior communicating artery seen, with an accompanying diminutive right P1 segment. This is attributed to a type origin of the right posterior cerebral artery, which is considered to be a normal developmental variant of typically no clinical consequence. Flow within the posterior cerebral arteries is normal and symmetric. No aneurysms are seen. NECK CT ANGIOGRAPHY: Carotid system: The great vessels demonstrate a conventional anatomy as they arise from the aortic arch. The origins of the common carotid arteries appear patent. The common carotid arteries demonstrate normal caliber and courses. There is dense atherosclerotic calcification seen involving the right proximal internal carotid artery, with approximately 50% narrowing. There is mild atherosclerotic change involving the left proximal internal carotid artery, yet without a hemodynamically significant stenosis. The more distal internal carotid arteries demonstrate normal course and caliber. Posterior circulation: There is at least 50% stenosis seen involving the origin of the left vertebral artery. There is poor flow seen throughout the left vertebral artery, which appears occluded within its V3 segment, yet there is distal reconstitution seen at the C4 level. The origin of the right vertebral artery is within normal limits. Normal flow is seen within the right vertebral artery. Soft tissues: Visualized neck soft tissues demonstrate no suspicious abnormalities. Small bilateral pleural effusions are partially seen. There is a right apical lung mass seen, measuring 1.9 cm, as on series 10 image 30. An additional soft tissue nodule can be seen more anteriorly on series 10, image 4, which may be related to scarring or atelectasis. Scarring can be seen involving the medial lung apices. Prior radiation treatment is presumed. Bones: No suspicious bony lesions. Visualized cervical spine appears normally aligned. Age-appropriate bony degenerative changes are seen. IMPRESSION: A single 6 mm rim enhancing lesion is seen within the right temporal lobe. The intracranial metastatic disease has dramatically improved compared to the prior imaging. No significant intracranial arterial abnormality is seen. There is at least 50% narrowing seen involving the origin of the left vertebral artery, with poor flow seen within the left vertebral artery. The left vertebral artery is occluded within its V3 segment, yet there is distal reconstitution. Approximately 50% stenosis seen involving proximal right internal carotid artery. Pulmonary metastatic disease is seen. Presumed radiation change within the medial lung apices. Please correlate with known patient history. Any quantitative measurements of stenosis were performed using NASCET criteria. Dictated by: Alvaor Jeff M.D. on 03/13/2021 at 11:19 Approved by: Alvaro Jeff M.D. on 03/13/2021 at 11:28
--- NOTE | 2021-03-13 11:44 | DI.CT.S_ITS ---
PROCEDURE: CT STROKE INDICATIONS: slurring of speech breast ca with mets TECHNIQUE: Noncontrast 4.5 mm thick angled axial sections acquired from the foramen magnum to the vertex, with coronal reformats. For radiation dose reduction, the following was used: automated exposure control, adjustment of mA and/or kV according to patient size. COMPARISON: [facility], MR, MR HEAD/BRAIN WO/W CON, 01/07/2021, 8:33. [facility], CT, CT HEAD/BRAIN WO CON, 01/10/2021, 16:22. FINDINGS: Image quality: Excellent. CSF spaces: Basal cisterns are patent. No extra-axial fluid collections. The ventricles are symmetric in size and shape. Brain: No intracranial bleeds. No nima masses are now seen. There are minimal areas of brain edema seen, which are clearly improved compared to the prior CT dated 01/10/2021. There is cerebral volume loss for age, with resultant ventricular and sulcal prominence. There are periventricular and deep white matter chronic small vessel ischemic changes. There is intracranial internal carotid artery atherosclerosis. Skull and face: Calvarium and visualized facial bones appear intact, without suspicious lesions. Sinuses: Visualized sinuses and mastoids are clear. IMPRESSION: No acute intracranial hemorrhage is seen. This study is dramatically improved compared to the 01/10/2021 examination, with only minimal areas brain edema seen. If there is strong clinical suspicion for an acute stroke, please consider a brain MRI for further evaluation, as it is more sensitive (assuming that there is no contraindication to MRI). Note: Case discussed by telephone with Dr. Rasmussen at 10:50 a.m. [place] time on March 13, 2021. This study fulfills neurological imaging criteria for inclusion or exclusion of acute stroke therapies based on available published neurological guidelines. Dictated by: Alvaro Jeff M.D. on 03/13/2021 at 10:47 Approved by: Alvaro Jeff M.D. on 03/13/2021 at 10:51
--- NOTE | 2021-03-13 11:53 | ED.NEUROSD ---
HPI - Neuro Symptoms/Deficit General Chief Complaint: Neuro Symptoms/Deficit Stated Complaint: slurring words Time Seen by Provider: 03/13/21 11:34 History of Present Illness HPI Narrative: 66-year-old female who presents with metastatic breast cancer pull to brain and bone is presenting today is with slurring of speech. Her very attentive his has recorded when he gave her medication. Got her normal medications at 9:00 a.m.. At 10:00 a.m. she started having some blurry vision which she does have frequently with her new chemo regimen which point he gave her ibuprofen. She since progressed with some confusion and slurring of speech. Patient presented as a Code Stroke went directly to the CT. Related Data Home Medications Medication Instructions Recorded Confirmed levothyroxine 125 mcg tablet 125 mcg PO DAILY 09/08/20 02/15/21 melatonin 10 mg tablet,extended 20 mg PO PRN PRN 09/08/20 02/15/21 release pyridoxine (vitamin B6) 50 mg 50 mg PO DAILY 09/08/20 02/15/21 capsule (Vitamin B-6) vitamin B12 500 mcg-folic acid 400 2 tab PO DAILY 09/08/20 02/15/21 mcg tablet Previous Rx's Medication Instructions Recorded hydrocodone 5 mg-acetaminophen 325 1 - 2 tab PO Q4H PRN #30 tab 12/06/20 mg tablet oxycodone 5 mg capsule 5 - 10 mg PO Q4H PRN #50 cap 12/29/20 dexamethasone 4 mg tablet 4 mg PO TID #75 tab 02/15/21 lidocaine-prilocaine 2.5 %-2.5 % See Rx Instructions .ROUTE 02/15/21 topical kit (Lido-Prilo Kodi Pack) .COMPLEX #7 ea dexamethasone 4 mg tablet 4 mg PO BID PRN #6 tab 03/03/21 pramipexole 0.125 mg tablet 0.125 mg PO BEDTIME #30 tab 03/04/21 (Mirapex) promethazine 25 mg rectal 25 mg AR Q4-6H PRN #12 ea 03/04/21 suppository lorazepam 1 mg tablet 0.5 mg PO Q6HR PRN #10 tab 03/09/21 Allergies Allergy/AdvReac Type Severity Reaction Status Date / Time No Known Drug Allergies Allergy Verified 02/25/21 18:29 Review of Systems Review of Systems Narrative: GENERAL: +general weakness HEENT: Denies sinus pain, ear pain, sore throat, difficulty swallowing, neck pain RESPIRATORY: Denies dyspnea, cough, wheezing, hemoptysis, sputum. CARDIOVASCULAR: Denies chest pain, palpitations, orthopnea, edema GASTROINTESTINAL: Denies nausea, vomiting, abdominal pain, :No dysuria MUSCULOSKELETAL: Denies weakness, joint pain, or bony pain SKIN: No rash, no erythema, no pruritus NEUROLOGIC: See HPI PSYCHIATRIC: No concerning psychosocial issues. 12 point review of systems is negative except for those stated above and HPI Patient History Medical History Bone metastases Brain metastasis Breast cancer, right Hx of migraine headaches Iron deficiency anemia Liver metastases Lung metastases Surgical History History of splenectomy (1979) Hx of right mastectomy (06/2017) Hx of thyroidectomy (08/2018) Status post delivery Status post surgery (07/23/15) Social History household members: spouse Smoking Status: Never smoker alcohol intake: current Smoking Status: Never smoker alcohol intake frequency: holidays/special occasions only Substance Use Type: does not use Exam Initial Vital Signs Initial Vital Signs: Vital Signs Pulse Rate 91 H 03/13/21 11:25 Respiratory Rate 14 03/13/21 11:25 Blood Pressure 161/77 H 03/13/21 11:25 Pulse Oximetry 99 03/13/21 11:25 GENERAL: Alert chronically ill thin 66-year-old female HEENT: Head atraumatic,EOMI, pupils reactive, face symmetric CARDIOVASCULAR: Regular rate and rhythm without murmurs, rubs or gallops. RESPIRATORY: Breath sounds equal bilaterally, no wheezes rales or rhonchi. ABDOMEN: Soft, nontender. Normoactive bowel sounds all 4 quadrants. No guarding or rebound. EXTREMITIES: Normal range of motion, no clubbing or edema. Neurovascularly intact NEUROLOGICAL: Alert and oriented x2. Patient is having word salad and some slurring as well. She is able to follow commands. Both legs drift to gurney initially but do not touch gurney. While doing finger to nose she needs redirection to do her left side but can do her left side. SKIN: Warm, dry, no laceration, no petechiae, no rashes or lesions. Scores NIH Stroke Scale Level of Conciousness: Alert, keenly responsive Ask month/age: Answers one question correctly, intubated follow commands Open/close eyes, close hand: Performs both tasks correctly Best gaze horizontal: Normal Visual woodruff: No visual loss Facial palsy: Normal symetrical movement Left arm drift: No drift for full 10 sec Right arm drift: No drift for full 10 sec Left leg drift: Drifts down, not to bed Right leg drift: Drifts down, not to bed Limb ataxia: Present in one limb Sensory on face/arms/legs: Normal, no sensory loss Best language: Mild to moderate, slurs some words Dysarthria: Mild to mod,some slurring Extinction or inattention: No abnormality Total NIH Stroke scale score: 6 Course Orders Ordered: ED Orders 03/13/21 11:43 CT angio head and neck Stat 03/13/21 11:44 CT Stroke Stat 03/13/21 11:45 EKG-12 Lead Stat 03/13/21 12:35 COVID19 - ADMIT (SUPERSONIC ENGINEER swab/PCR) Stat 03/13/21 12:55 Complete Blood Count AUTO DIFF Stat Comprehensive Metabolic Panel Stat Partial Thromboplastin Time Stat Prothrombin Time INR Stat Troponin & CK Cardiac Panel Stat Acetaminophen (Acetaminophen 325 Mg Tablet) 650 mg PO Q6HR PRN PRN Reason: Fever/Mild Pain (1-3) Aspirin (Aspirin Ec 81 Mg Tablet) 81 mg PO DAILY MONIQUE Atorvastatin Calcium (Atorvastatin 20 Mg Tablet) 40 mg PO BEDTIME MONIQUE Dexamethasone (Dexamethasone 4 Mg Tablet) 4 mg PO BID MONIQUE Enoxaparin Sodium (Enoxaparin 40 Mg/0.4 Ml Syringe) 40 mg SUBCUT DAILY [facility] Heparin Sodium (Porcine) (Heparin 500 Unit/5 Ml Port Flush) 500 unit IV PRN PRN PRN Reason: Flush Ceftriaxone Sodium 1,000 mg/ (Sodium Chloride) 100 mls @ 200 mls/hr IV Q24H MONIQUE Levothyroxine Sodium (Levothyroxine 125 Mcg Tablet) 125 mcg PO DAILY MONIQUE Lorazepam (Lorazepam 0.5 Mg Tablet) 0.5 mg PO Q6HR PRN PRN Reason: Anxiety Last Admin: 03/13/21 14:55 Dose: 0.5 mg Documented by: DAVID Lorazepam (Lorazepam 2 Mg/Ml Inj) 0 mg IV CIWAPRN PRN; Protocol PRN Reason: Alcohol Withdrawal Lorazepam (Lorazepam 1 Mg Tablet) 0 mg PO CIWAPRN PRN; Protocol PRN Reason: Alcohol Withdrawal Naloxone HCl (Naloxone 0.4 Mg/Ml Vial) 0.2 mg IV Q2MIN PRN PRN Reason: Opiate Reversal Ondansetron HCl (Ondansetron 4 Mg/2 Ml Inj) 4 mg IV Q8HR PRN PRN Reason: Nausea And Vomiting Discontinued Medications Aspirin (Aspirin 81 Mg Chew Tab) 324 mg PO NOW ONE Stop: 03/13/21 13:53 Last Admin: 03/13/21 13:59 Dose: 324 mg Documented by: SOFIA Lorazepam (Lorazepam 2 Mg/Ml Inj) 2 mg IV NOW ONE Stop: 03/13/21 15:18 Last Admin: 03/13/21 16:25 Dose: 2 mg Documented by: WILLEM Vital Signs Vital signs: Vital Signs - 8 hr 03/13/21 12:08 03/13/21 12:18 03/13/21 12:28 Temperature Pulse Rate 68 90 Respiratory Rate Blood Pressure 157/68 H 151/65 H Pulse Oximetry 92 03/13/21 12:30 03/13/21 13:01 03/13/21 13:02 Temperature 99.7 F H Pulse Rate 101 H 96 H 96 H Respiratory Rate 28 H 24 Blood Pressure 151/102 H Pulse Oximetry 99 93 98 03/13/21 13:30 03/13/21 13:44 03/13/21 14:00 Temperature Pulse Rate 100 H 102 H 99 H Respiratory Rate 24 25 H Blood Pressure 140/63 Pulse Oximetry 97 100 97 03/13/21 14:01 Temperature 98.3 F Pulse Rate 99 H Respiratory Rate 26 H Blood Pressure 120/62 Pulse Oximetry 97 MDM - Neuro Symptoms/Deficit Lab Data Result diagrams: 03/13/21 12:55 03/13/21 12:55 Labs: Lab Results 03/13/21 03/13/21 03/13/21 Range/Units 12:35 12:55 12:55 WBC 15.4 H (4.5-11.0) X10^3/uL RBC 4.21 (4.0-5.2) X10^6/uL Hgb 13.5 (12.0-16.0) g/dL Hct 40.2 (36-46) % MCV 95.5 (80-100) fL MCH 32.1 (26-34) PG MCHC 33.7 (30-36) % RDW 17.0 H (11.6-14.8) % Plt Count 401 H (150-400) X10^3/uL Neut % (Auto) Not Reportable Lymph % (Auto) Not Reportable Ford % (Auto) Not Reportable Eos % (Auto) Not Reportable Baso % (Auto) Not Reportable Lymph # (Auto) Not Reportable Ford # (Auto) Not Reportable Baso # (Auto) Not Reportable Total Counted 100 Seg Neutrophils % 76.0 H (38-70) % Band Neutrophils % 8.0 H (3-7) % Lymphocytes % (Manual) 6.0 L (25-45) % Monocytes % (Manual) 10.0 (2-11) % Neutrophils # (Manual) 63853 H (3505-9465) /uL RBC Morphology See Anisocytosis 1+ H PT (10.1-12.7) SECONDS INR (0.9-1.3) APTT (26.4-36.2) SECONDS Sodium 130 L (137-145) mmol/L Potassium 4.2 (3.4-5.1) mmol/L Chloride 99 (98-107) mmol/L Carbon Dioxide 22 (22-32) mmol/L BUN 15 (7-17) mg/dL Creatinine 0.52 (0.52-1.04) mg/dL Estimated GFR > 60.0 (>60) mL/min BUN/Creatinine Ratio 28.8 H (6-22) Glucose 105 D (80-110) mg/dL Calcium 9.6 (8.4-10.2) mg/dL Total Bilirubin 0.3 (0.2-1.3) mg/dL AST 63 H (14-36) IU/L ALT 104 H (<35) IU/L Alkaline Phosphatase 128 H (38-126) U/L Total Creatine Kinase 22 L (30-135) U/L CK-MB (CK-2) TNP CK-MB (CK-2) Rel Index TNP Troponin I < 0.012 (0.01-0.034) ng/mL Total Protein 6.4 (6.3-8.2) g/dL Albumin 3.5 (3.5-5.0) g/dL Globulin 2.9 (1.7-4.1) g/dL Albumin/Globulin Ratio 1.2 (1.0-2.8) SARS-CoV-2 (PCR) Negative (Negative) 03/13/21 Range/Units 12:55 WBC (4.5-11.0) X10^3/uL RBC (4.0-5.2) X10^6/uL Hgb (12.0-16.0) g/dL Hct (36-46) % MCV (80-100) fL MCH (26-34) PG MCHC (30-36) % RDW (11.6-14.8) % Plt Count (150-400) X10^3/uL Neut % (Auto) Lymph % (Auto) Ford % (Auto) Eos % (Auto) Baso % (Auto) Lymph # (Auto) Ford # (Auto) Baso # (Auto) Total Counted Seg Neutrophils % (38-70) % Band Neutrophils % (3-7) % Lymphocytes % (Manual) (25-45) % Monocytes % (Manual) (2-11) % Neutrophils # (Manual) (1597-5705) /uL RBC Morphology Anisocytosis PT 10.9 (10.1-12.7) SECONDS INR 1.0 (0.9-1.3) APTT 25 L (26.4-36.2) SECONDS Sodium (137-145) mmol/L Potassium (3.4-5.1) mmol/L Chloride (98-107) mmol/L Carbon Dioxide (22-32) mmol/L BUN (7-17) mg/dL Creatinine (0.52-1.04) mg/dL Estimated GFR (>60) mL/min BUN/Creatinine Ratio (6-22) Glucose (80-110) mg/dL Calcium (8.4-10.2) mg/dL Total Bilirubin (0.2-1.3) mg/dL AST (14-36) IU/L ALT (<35) IU/L Alkaline Phosphatase (38-126) U/L Total Creatine Kinase (30-135) U/L CK-MB (CK-2) CK-MB (CK-2) Rel Index Troponin I (0.01-0.034) ng/mL Total Protein (6.3-8.2) g/dL Albumin (3.5-5.0) g/dL Globulin (1.7-4.1) g/dL Albumin/Globulin Ratio (1.0-2.8) SARS-CoV-2 (PCR) (Negative) Point of Care Testing Glucose POC [address] scan - head: Radiologist's Impression: PROCEDURE: CT STROKE INDICATIONS: slurring of speech breast ca with mets TECHNIQUE: Noncontrast 4.5 mm thick angled axial sections acquired from the foramen magnum to the vertex, with coronal reformats. For radiation dose reduction, the following was used: automated exposure control, adjustment of mA and/or kV according to patient size. COMPARISON: [facility], MR, MR HEAD/BRAIN WO/W CON, 01/07/2021, 8:33. [facility], CT, CT HEAD/BRAIN WO CON, 01/10/2021, 16:22. FINDINGS: Image quality: Excellent. CSF spaces: Basal cisterns are patent. No extra-axial fluid collections. The ventricles are symmetric in size and shape. Brain: No intracranial bleeds. No nima masses are now seen. There are minimal areas of brain edema seen, which are clearly improved compared to the prior CT dated 01/10/2021. There is cerebral volume loss for age, with resultant ventricular and sulcal prominence. There are periventricular and deep white matter chronic small vessel ischemic changes. There is intracranial internal carotid artery atherosclerosis. Skull and face: Calvarium and visualized facial bones appear intact, without suspicious lesions. Sinuses: Visualized sinuses and mastoids are clear. IMPRESSION: No acute intracranial hemorrhage is seen. This study is dramatically improved compared to the 01/10/2021 examination, with only minimal areas brain edema seen. If there is strong clinical suspicion for an acute stroke, please consider a brain MRI for further evaluation, as it is more sensitive (assuming that there is no contraindication to MRI). Note: Case discussed by telephone with Dr. Rasmussen at 10:50 a.m. [place] time on March 13, 2021. This study fulfills neurological imaging criteria for inclusion or exclusion of acute stroke therapies based on available published neurological guidelines. Dictated by: Alvaro Jeff M.D. on 03/13/2021 at 10:47 CTA - brain/neck: Radiologist's Impression: PROCEDURE: CT ANGIO HEAD AND NECK INDICATIONS: slurring of speech TECHNIQUE: Noncontrast images were performed earlier in the day and not repeated. After the administration of intravenous contrast, 1 mm thick sections acquired from the aortic arch through the [place]. Post-contrast 4.5 mm thick sections then re-acquired from the foramen magnum to the vertex. 3-dimensional [id number] (MIP) and/or volume rendering reformats were acquired of the central intracranial vasculature and neck separately. COMPARISON: [facility], CT, CT CHEST ABD PEL W CON, 02/09/2021, 10:22. [facility], CT, CT STROKE, 03/13/2021, 11:38. [facility], CT, CT HEAD/BRAIN WO CON, 01/10/2021, 16:22. [facility], MR, MR HEAD/BRAIN WO/W CON, 01/07/2021, 8:33. FINDINGS: Image quality: Excellent. BRAIN: CSF spaces: Ventricles are normal in size and shape. Basal cisterns are patent. No extra-axial fluid collections. Brain: No midline shift. No intracranial bleeds. There is faint visualization of a rim enhancing mass seen within the right temporal lobe, as on series 10, image 231, measuring 6 mm. The previously seen intracranial masses are no longer definitely seen by CT. A small amount of scattered brain edema can be seen, which is also improved compared to the prior imaging. Morales-white matter interface appears intact. Skull and face: Calvarium and facial bones appear intact, without suspicious lesions. Orbits appear normal. Sinuses: Sinuses and mastoids are clear. HEAD CT ANGIOGRAPHY: Anterior circulation: Intracranial internal carotid arteries are normal in size and flow. The flow within the paired anterior cerebral arteries is normal and symmetric. The flow within the middle cerebral arteries is normal and symmetric. The anterior communicating artery is seen. No aneurysms are seen. Posterior circulation: The right V4 segment is dominant to the left. The vertebral arteries join to form a normal appearing basilar artery. There is a prominent right posterior communicating artery seen, with an accompanying diminutive right P1 segment. This is attributed to a type origin of the right posterior cerebral artery, which is considered to be a normal developmental variant of typically no clinical consequence. Flow within the posterior cerebral arteries is normal and symmetric. No aneurysms are seen. NECK CT ANGIOGRAPHY: Carotid system: The great vessels demonstrate a conventional anatomy as they arise from the aortic arch. The origins of the common carotid arteries appear patent. The common carotid arteries demonstrate normal caliber and courses. There is dense atherosclerotic calcification seen involving the right proximal internal carotid artery, with approximately 50% narrowing. There is mild atherosclerotic change involving the left proximal internal carotid artery, yet without a hemodynamically significant stenosis. The more distal internal carotid arteries demonstrate normal course and caliber. Posterior circulation: There is at least 50% stenosis seen involving the origin of the left vertebral artery. There is poor flow seen throughout the left vertebral artery, which appears occluded within its V3 segment, yet there is distal reconstitution seen at the C4 level. The origin of the right vertebral artery is within normal limits. Normal flow is seen within the right vertebral artery. Soft tissues: Visualized neck soft tissues demonstrate no suspicious abnormalities. Small bilateral pleural effusions are partially seen. There is a right apical lung mass seen, measuring 1.9 cm, as on series 10 image 30. An additional soft tissue nodule can be seen more anteriorly on series 10, image 4, which may be related to scarring or atelectasis. Scarring can be seen involving the medial lung apices. Prior radiation treatment is presumed. Bones: No suspicious bony lesions. Visualized cervical spine appears normally aligned. Age-appropriate bony degenerative changes are seen. IMPRESSION: A single 6 mm rim enhancing lesion is seen within the right temporal lobe. The intracranial metastatic disease has dramatically improved compared to the prior imaging. No significant intracranial arterial abnormality is seen. There is at least 50% narrowing seen involving the origin of the left vertebral artery, with poor flow seen within the left vertebral artery. The left vertebral artery is occluded within its V3 segment, yet there is distal reconstitution. Approximately 50% stenosis seen involving proximal right internal carotid artery. Pulmonary metastatic disease is seen. Presumed radiation change within the medial lung apices. Please correlate with known patient history. Any quantitative measurements of stenosis were performed using NASCET criteria. Dictated by: Alvaro Jeff M.D. on 03/13/2021 at 11:19 ECG Data Interpretation: Sinus rhythm rate 93 AR interval 118 QRS 84 QTC 465 T wave inversions noted in V1, V2 to no ST elevations new since previous EKG MDM Narrative Medical decision making narrative: The patient is having some obvious aphasia and dysarthria with some generalized weakness. Concern for acute stroke. However she does have a contraindication to tPA with known metastatic brain cancer. Nonetheless I did discuss with Neurology Dr. Soriano, who has reviewed images and agrees with no tPA he even talks with patient in regards to why patient is not a candidate for tPA despite improved CT. At this time patient and agree to treatment. She is given aspirin. Dr. Zarate accepts patient Discharge Plan Departure Patient Disposition: Admitted As Inpatient Clinical Impression: CVA (cerebral vascular accident) Admit Date/Time: 03/13/21 14:20 Admit Provider: Bertin Zarate
--- NOTE | 2021-03-13 12:28 | RT ---
Responded to code stroke, airway patent and no distress noted. MD at bedside and bag mask unit at [facility] with suction. pt on room air
[2021-03-13 13:08] LABS: Add Manual Diff / Slide Review YES; Hematocrit 40.2 % (36-46); Hemoglobin 13.5 g/dL (12.0-16.0); Mean Corpuscular HGB Conc 33.7 % (30-36); Mean Corpuscular Hemoglobin 32.1 PG (26-34); Mean Corpuscular Volume 95.5 fL (80-100); Platelet Count 401 X10^3/uL (150-400); Prothrombin Time 10.9 SECONDS (10.1-12.7); Red Blood Cell Count 4.21 X10^6/uL (4.0-5.2); White Blood Cell Count 15.4 X10^3/uL (4.5-11.0)
[2021-03-13 13:11] LABS: PTT Partial Thromboplastin Tim 25 SECONDS (26.4-36.2)
[2021-03-13 13:12] LABS: Alanine Aminotransferase 104 IU/L (<35); Albumin 3.5 g/dL (3.5-5.0); Albumin Globulin Ratio 1.2 (1.0-2.8); Alkaline Phosphatase 128 U/L (38-126); Aspartate Aminotransferase 63 IU/L (14-36); BUN Creatinine Ratio 28.8 (6-22); Bilirubin Total 0.3 mg/dL (0.2-1.3); Blood Urea Nitrogen 15 mg/dL (7-17); Calcium 9.6 mg/dL (8.4-10.2); Carbon Dioxide 22 mmol/L (22-32); Chloride 99 mmol/L (98-107); Creatine Kinase 22 U/L (30-135); Estimated Glomerular Filt Rate > 60.0 mL/min (>60); Globulin 2.9 g/dL (1.7-4.1); Glucose 105 mg/dL (80-110); HEMOLYSIS < 15 (0-50); Potassium 4.2 mmol/L (3.4-5.1); Sodium 130 mmol/L (137-145); Total Protein 6.4 g/dL (6.3-8.2)
[2021-03-13 13:24] LABS: Troponin I < 0.012 ng/mL (0.01-0.034)
[2021-03-13 13:36] LABS: Neutrophils Absolute Manual 12936 /uL (3000-5900); RBC Morphology See; Total Cells Counted 100
[2021-03-13 13:37] LABS: Anisocytosis 1+
[2021-03-13 13:50] LABS: COVID19 - ADMIT (NP swab/PCR) Negative (Negative)
[2021-03-13] MEDS: ASPIRIN 81 MG CHEW TAB 324 MG PO (13:59)
--- NOTE | 2021-03-13 14:47 | PC.NURSE ---
Day shift: Pt on unit from ED at approx 1447. Pt's spouse is with her. Dr Zarate notified about Pt having anxiety in ED and MD has ordered PO Ativan. Will ask Pt if she would like to take now. Pt took the Ativan. Dr Zarate also informed that Pt is not able to communicate at this time. Can't find the words and the words she does use are not making any sense to this policy writer sales or Pt's spouse. Pt continues to attempt to get OOB at this time as well.
[2021-03-13] MEDS: LORazepam 0.5 MG TABLET PO (14:55)
--- NOTE | 2021-03-13 15:16 | PM.HP.1 ---
History of Present Illness History of Present Illness Date Patient Seen: 03/13/21 Time Patient Seen: 15:16 Chief complaint: slurring words Narrative: This is a 66 year old female with PMH of metastatic breast cancer (with Mets to lung, liver, and multiple brain lesions) on palliative chemotherapy, hypothyroidism who presented to the emergency room as a code stroke. Patient initially had some double vision, which is not uncommon for her after her treatments. However, this progressed to slurring of her speech and confusion at around 9-10 AM at which time they brought her in to the ER. No facial asymmetry, focal weakness or numbness reported. Unable to ask related symptoms currently due to the level of her aphasia. at bedside and confirms ED story. Patient was also extremely anxious upon arrival to hospital floor. Has bilateral weakness recently due to chemotherapy, chronic nausea for which her dexamethasone was recently increased. In the emergency room, patient with mild hypertension improved without medication. She also had mild tachycardia and tachypnea. It appears as if she has been taking benzodiazepines TID at home, and recently had increased her dexamethasone to TID due to increased nausea on 03/09. Review of history is based upon chart review and with and patient unable to participate currently. CT head without contrast did not show any evidence of active bleeding. CT angiogram of her head and neck did not show any acute disease, though there is a ring-enhancing lesion, but overall this is actually much improved from her prior head imaging. Patient History Medical History Bone metastases Brain metastasis Breast cancer, right Hx of migraine headaches Iron deficiency anemia Liver metastases Lung metastases Surgical History History of splenectomy (1979) Hx of right mastectomy (06/2017) Hx of thyroidectomy (08/2018) Status post delivery Status post surgery (07/23/15) Family & Social History Social History: household members spouse Safety & Behavioral: Feels Safe in Current Yes Environment Been Physically Hurt or No Threatened By a Person Tobacco & Substance use: Smoking Status Never smoker alcohol intake current alcohol intake frequency holiday/special occasion Substance Use Type does not use Meds Home Medications and Allergies Home Medications Medication Instructions Recorded Confirmed Type levothyroxine 125 mcg tablet 125 mcg PO DAILY 09/08/20 02/15/21 History melatonin 10 mg tablet,extended 20 mg PO PRN PRN 09/08/20 02/15/21 History release pyridoxine (vitamin B6) 50 mg 50 mg PO DAILY 09/08/20 02/15/21 History capsule (Vitamin B-6) vitamin B12 500 mcg-folic acid 400 2 tab PO DAILY 09/08/20 02/15/21 History mcg tablet hydrocodone 5 mg-acetaminophen 325 1 - 2 tab PO Q4H PRN #30 tab 12/06/20 02/15/21 Rx mg tablet oxycodone 5 mg capsule 5 - 10 mg PO Q4H PRN #50 cap 12/29/20 02/15/21 Rx dexamethasone 4 mg tablet 4 mg PO TID #75 tab 02/15/21 02/23/21 Rx lidocaine-prilocaine 2.5 %-2.5 % See Rx Instructions .ROUTE 02/15/21 Rx topical kit (Lido-Prilo Kodi Pack) .COMPLEX #7 ea dexamethasone 4 mg tablet 4 mg PO BID PRN #6 tab 03/03/21 Rx pramipexole 0.125 mg tablet 0.125 mg PO BEDTIME #30 tab 03/04/21 Rx (Mirapex) promethazine 25 mg rectal 25 mg NH Q4-6H PRN #12 ea 03/04/21 Rx suppository lorazepam 1 mg tablet 0.5 mg PO Q6HR PRN #10 tab 03/09/21 Rx Allergies Allergy/AdvReac Type Severity Reaction Status Date / Time No Known Drug Allergies Allergy Verified 02/25/21 18:29 Review of Systems Review of Systems Narrative: All other systems reviewed with the patient and are negative unless otherwise stated. Exam Vital Signs (past 8 hours): - 03/13/21 11:25 03/13/21 12:08 03/13/21 12:18 Temperature Pulse Rate 91 H 68 Respiratory Rate 14 Blood Pressure 161/77 H 157/68 H Pulse Oximetry 99 92 03/13/21 12:28 03/13/21 12:30 03/13/21 13:01 Temperature Pulse Rate 90 101 H 96 H Respiratory Rate 28 H Blood Pressure 151/65 H Pulse Oximetry 99 93 03/13/21 13:02 03/13/21 13:30 03/13/21 13:44 Temperature 99.7 F H Pulse Rate 96 H 100 H 102 H Respiratory Rate 24 24 Blood Pressure 151/102 H 140/63 Pulse Oximetry 98 97 100 03/13/21 14:00 03/13/21 14:01 03/13/21 14:30 Temperature 98.3 F Pulse Rate 99 H 99 H 96 H Respiratory Rate 25 H 26 H 28 H Blood Pressure 120/62 128/59 L Pulse Oximetry 97 97 99 Oxygen Delivery Method Room Air Narrative Exam Narrative: GENERAL APPEARANCE: Thin appearing female, anxious, tachypnic SKIN: Inspection of the skin reveals no rashes, ulcerations or petechiae. HEENT: Normocephalic atraumatic, extraocular muscles are intact, oropharynx is clear and mucous membranes are moist, neck is supple without adenopathy NECK: Supple and symmetric. There was no thyroid enlargement, and no tenderness, or masses were felt. CHEST: no tenderness, chest port without erythema or induration. LUNGS: Auscultation of the lungs revealed no wheezes, rhonchi, or rales. CARDIOVASCULAR: There was a regular rate and rhythm without any murmurs, gallops, rubs. Peripheral pulses were 2+ and symmetric. ABDOMEN: Soft, nontender, and non-distended. MUSCULOSKELETAL: There was no tenderness or effusions noted. Muscle strength and tone were normal. EXTREMITIES: No cyanosis, clubbing or edema. NEUROLOGIC: confused, wandering intermittently but ambulatory (slightly unsteady) and reaching out for objects. improved after urination. clear speech but with expressive aphasia, seemingly comprehending questions. states her name correctly. Unable to complete full stroke scale at this time due to both confusion, aphasia, and apparent anxiety. Objective ECG Impression: Normal sinus rhythm Possible Left atrial enlargement no significant changes compared to prior tracing Imaging CT scan - head: Radiologist's impression: IMPRESSION: A single 6 mm rim enhancing lesion is seen within the right temporal lobe. The intracranial metastatic disease has dramatically improved compared to the prior imaging. No significant intracranial arterial abnormality is seen. There is at least 50% narrowing seen involving the origin of the left vertebral artery, with poor flow seen within the left vertebral artery. The left vertebral artery is occluded within its V3 segment, yet there is distal reconstitution. Approximately 50% stenosis seen involving proximal right internal carotid artery. Pulmonary metastatic disease is seen. Presumed radiation change within the medial lung apices. Please correlate with known patient history. Labs Result Diagrams: 03/13/21 12:55 03/13/21 12:55 Labs: Laboratory Results - last 24 hr 03/13/21 03/13/21 03/13/21 12:35 12:55 12:55 WBC 15.4 H RBC 4.21 Hgb 13.5 Hct 40.2 MCV 95.5 MCH 32.1 MCHC 33.7 RDW 17.0 H Plt Count 401 H Neut % (Auto) Not Reportable Lymph % (Auto) Not Reportable [place] % (Auto) Not Reportable Eos % (Auto) Not Reportable Baso % (Auto) Not Reportable Lymph # (Auto) Not Reportable [place] # (Auto) Not Reportable Baso # (Auto) Not Reportable Total Counted 100 Seg Neutrophils % 76.0 H Band Neutrophils % 8.0 H Lymphocytes % (Manual) 6.0 L Monocytes % (Manual) 10.0 Neutrophils # (Manual) 79141 H RBC Morphology See Anisocytosis 1+ H PT INR APTT Sodium 130 L Potassium 4.2 Chloride 99 Carbon Dioxide 22 BUN 15 Creatinine 0.52 Estimated GFR > 60.0 BUN/Creatinine Ratio 28.8 H Glucose 105 D Calcium 9.6 Total Bilirubin 0.3 AST 63 H ALT 104 H Alkaline Phosphatase 128 H Total Creatine Kinase 22 L CK-MB (CK-2) TNP CK-MB (CK-2) Rel Index TNP Troponin I < 0.012 Total Protein 6.4 Albumin 3.5 Globulin 2.9 Albumin/Globulin Ratio 1.2 SARS-CoV-2 (PCR) Negative 03/13/21 12:55 WBC RBC Hgb Hct MCV MCH MCHC RDW Plt Count Neut % (Auto) Lymph % (Auto) [place] % (Auto) Eos % (Auto) Baso % (Auto) Lymph # (Auto) [place] # (Auto) Baso # (Auto) Total Counted Seg Neutrophils % Band Neutrophils % Lymphocytes % (Manual) Monocytes % (Manual) Neutrophils # (Manual) RBC Morphology Anisocytosis PT 10.9 INR 1.0 APTT 25 L Sodium Potassium Chloride Carbon Dioxide BUN Creatinine Estimated GFR BUN/Creatinine Ratio Glucose Calcium Total Bilirubin AST ALT Alkaline Phosphatase Total Creatine Kinase CK-MB (CK-2) CK-MB (CK-2) Rel Index Troponin I Total Protein Albumin Globulin Albumin/Globulin Ratio SARS-CoV-2 (PCR) Assessment & Plan Assessment & Plan narrative: This is a 66 year old female with PMH of metastatic breast cancer (with Mets to lung, liver, and multiple brain lesions) on palliative chemotherapy, hypothyroidism who presented to the emergency room with worsening speech and confusion, admitted to medicine for further evaluation. 1. toxic metabolic encephalopathy, acute, present on admission - most likely acute confusion related to combination of acute CVA and /or brain mets, anxiety with possible benzodiazepine withdrawal given home TID dosing, also includes delirium from increased dexamethasone a few days ago. - placed on CIWA protocol for now, 2mg IV ordered. continue home 0.5 mg TID dosing. -MRI as noted below. 2. aphasia, acute, probable CVA, present on admission - patient presents with profound aphasia. telenuerology consulted in the ER, not TPA candidate due to brain mets. given asa in the ER. - differential includes brain metastases, though on head CT these appear to have improved. - MRI stroke ordered - NIHSS is > 5, though at this time given level of aphasia and confusion it is difficult to accurately assess. continue asa only given brain mets and NIHSS >5. continue telemetry. - PT/OT/Speech therapy consultation. - continue telemetry. There is some carotid disease but about 50% stenosis bilaterally. Have ordered statin therapy. 3. metastatic breast cancer\ - seen by oncology Dr. Lee on 03/09. Had increased decadron due to nausea. Will decrease given above to BID dosing. 4. post thyroidectomy related hypothyroidism, - continue home levothyroxine. 5. Elevated transaminase levels - improving recently compared with outpatient results. suspect related to metastatic disease or from chemotherapy. 6. Leukocytosis, suspect related to recent increase in dexamethasone. No current evidence of infection and no recent signs or symptoms. Will check a UA. I have utilized all available immediate resources to obtain, update, or review the patient's current medications. Code: DNR, surrogate decision maker is the patient's spouse. Patient has an advanced directive which will bring in. DVT: Lovenox Dispo: admitted under inpatient status as her stay is expected to exceed two midnights. COVID-19 COVID-19 status: Negative Result date/Date tested (Pos, Neg/Pending): 03/13/21 Scores NIHSS Level of Conciousness: Alert, keenly responsive Ask month/age: Answers neither question correctly, aphasic, stuporous, coma Best language: Severe aphasia, not much is understood, fragmented Dysarthria: Normal
--- NOTE | 2021-03-13 15:23 | DI.MRI.S_ITS ---
PROCEDURE: MR STROKE Pre- and post-contrast brain MRI, non-contrast brain MR angiogram, pre- and postcontrast neck MR angiogram INDICATIONS: suspected CVA, severe aphasia TECHNIQUE: Brain: Noncontrast axial T1 spin echo, axial T2 fast spin echo, sagittal and axial FLAIR, coronal T2 fast spin echo, axial gradient echo, axial diffusion and ADC through the brain. After the administration of contrast, axial 3D VIBE of the cranial vasculature and brain. Brain MRA: Non-contrast 3-D time of flight MR angiogram, with multiple odinzpv-mgsiqchqk-rfntkfpvww (MIP) reformats performed. Neck MRA: Axial and sagittal TruFISP through the neck. Coronal dynamic MR angiogram during administration of contrast in the arterial and venous phases, with 3-dimenstional ztwbmrh-zceaxmhpl-jfqwukkaip (MIP) reformats constructed from subtraction images. COMPARISON: [facility], MR, MR HEAD/BRAIN WO/W CON, 01/07/2021, 8:33. [facility], CT, CT STROKE, 03/13/2021, 11:38. [facility], CT, CT ANGIO HEAD AND NECK, 03/13/2021, 11:38. FINDINGS: Image quality: This examination is highly limited by involuntary motion artifact. BRAIN: CSF spaces: Ventricles are normal in size and shape. Basal cisterns are patent. No extra-axial fluid collections. Brain: No definite abnormal diffusion-weighted signal can be seen, when correlation is made the ADC maps. On postcontrast imaging, there are several rim enhancing lesion seen, which are much better demonstrated by MRI than on the prior recent CT. The most notable of these can be seen within the right frontal lobe laterally measuring 10 x 9 mm, as on series 32, image 17 and within the left frontal lobe measuring 8 by 7 mm on series 32, image 17. Within the posterior right frontal lobe, there are 2 lesions immediately adjacent to 1 another that measure 11 x 7 mm when measured together, as on series 32 image 20. Within the right temporal lobe, there is a rim enhancing lesion measuring 12 x 9 mm, as on series 32, image 12. Within the cerebellum on series 32, image 6 there are several lesions seen, which measure 9 x 5 and 6 x 8 mm and 5 x 3 mm within the right cerebellar hemisphere and 10 x 5 mm within the left cerebellar hemisphere. The metastatic disease is clearly improved compared to the 01/07/2021 MRI examination. There is a focus of hemorrhage again seen within the left frontal lobe, as on series 12, image 20 Brainstem appears normal. Normal intravascular flow voids are present. No abnormal intracranial enhancement. Skull and face: Calvarial marrow signal is normal. Orbits appear normal. Sinuses: Sinuses and mastoids are clear. BRAIN MR ANGIOGRAM: Motion artifact highly limits evaluation of the intracranial circulation. NECK MR ANGIOGRAM: Carotids: Great vessels demonstrate a conventional anatomy as they arise from the aortic arch. The origins of the common carotid arteries appear patent. The calibers and courses of both common carotid arteries are normal. The bifurcation regions demonstrate atherosclerotic irregularity. There is approximately 50% stenosis seen involving the right proximal internal carotid artery. No hemodynamically significant stenosis can be seen of the left internal carotid artery. Relatively poor flow can be seen within the left external carotid artery. Posterior circulation: There is at least 50% narrowing seen involving the origin of the left vertebral artery. Poor flow seen throughout the left vertebral artery, with increased flow distally, which is attributed to collateral circulation. No significant abnormality of the right vertebral artery can be seen. Miscellaneous: Subclavian arteries appear patent. Pre-contrast images through the neck show no soft tissue abnormalities. IMPRESSION: This study is highly limited by motion artifact. BRAIN MRI: Numerous foci metastatic disease can be seen within the brain, which are clearly improved compared to the prior MRI dated 01/07/2021. Stable focus of hemorrhage within the left frontal lobe. No findings of acute or subacute infarction can be seen. BRAIN MR ANGIOGRAM: Evaluation of the intracranial circulation is highly limited by motion artifact. NECK MR ANGIOGRAM: At least 50% stenosis involving the origin of the left vertebral artery, with poor flow seen within the left vertebral artery. Approximately 50% stenosis seen involving the right proximal internal carotid artery. Dictated by: Alvaro Jeff M.D. on 03/14/2021 at 10:36 Approved by: Alvaro Jeff M.D. on 03/14/2021 at 10:45
[2021-03-13] MEDS: LORazepam 2 MG/ML INJ IV ×2 (16:25→20:55)
[2021-03-13 18:58] LABS: RBC Urine None Seen (0-5/HPF)
[2021-03-13 18:59] LABS: Appearance Urine UA CLEAR; Bilirubin Urine UA NEGATIVE (NEGATIVE); Color Urine UA YELLOW; Glucose Urine UA NEGATIVE (Negative); Ketones Urine UA TRACE (NEGATIVE); Leukocyte Esterase Urine UA TRACE (NEGATIVE); Nitrite Urine UA NEGATIVE (Negative); Occult Blood Urine UA NEGATIVE (Negative); Protein Urine UA NEGATIVE (Negative); Urobilinogen Urine UA 0.2 E.U./dL (0.2)
[2021-03-13 19:05] LABS: Bacteria Urine Many (>30); Culture Indicated Urine Specimen Cultured; WBC Urine 5-10/HPF (0-5/HPF)
[2021-03-13] MEDS: cefTRIAXone 1,000 MG in SODIUM CHLORIDE 0.9% 100 ML 200 ML IV (19:44)
--- NOTE | 2021-03-13 23:31 | PC.NURSE ---
patient agitated at begin of shift, unable to follow commands, grabbing at the air, pulling at her clothing, linens. Dr Zarate on the floor, had ordered IV lorazepam. her LAC PIV was removed during the patient pulling at her clothing. a new PIV was attempted, w/o success. received orders from Dr. Zarate to access her L chest port-0-cath. orders to heparinize and lock. lidocaine injected at site, waited a few min, w/ assisting and comforting his & holding her RUE. west needle was inserted, 5cc hep flushed easily into j-loop. allowed to sit in line for approx 10 min. After 10 min of manipulation of hep back and forth in the line, the line chalino back blood and showed accessing the line was a success. 2 large tegaderm dressings applied over port, and line. patient tolerated well. hep flushes added to med list. urine was noted to be malodorous, UA final shows + for bacteria. tolerated IV rocephin, and is beginning to perk up a little bit, confusion seems slightly improved.
[2021-03-14] VITALS (16 sets, daily range): BP systolic 98–161; BP diastolic 45–76; PULSE 81–102; RESP 16–18; TEMP 36.6–37.2; O2SAT 94–98
--- NOTE | 2021-03-14 02:15 | PC.NURSE ---
Able to do NIH scale. Score 24. Patient did not speak, does not respond to cues. Moved limbs around on own, but could not follow any directions. Patient fell asleep and spouse would like her to rest. He will ring when she stirs again, and he knows plan to obtain vital signs and complete my nursing assessment on her.
--- NOTE | 2021-03-14 07:02 | PC.NURSE ---
is at bedside. Spoke with him regarding advanced directives. Stated he had one at home, has not brought in yet.
[2021-03-14 07:52] LABS: Add Manual Diff / Slide Review NO; Basophils Absolute Auto 0 /uL (0-100); Basophils Percent Auto 0.1 % (0-2); Eosinophils Absolute Auto 100 /uL (0-450); Eosinophils Percent Auto 0.6 % (2-4); Hematocrit 37.4 % (36-46); Hemoglobin 12.5 g/dL (12.0-16.0); Lymphocytes Absolute Auto 600 /uL (1100-4500); Lymphocytes Percent Auto 4.7 % (25-40); Mean Corpuscular HGB Conc 33.3 % (30-36); Mean Corpuscular Hemoglobin 31.9 PG (26-34); Mean Corpuscular Volume 95.8 fL (80-100); Monocytes Absolute Auto 1000 /uL (0-900); Monocytes Percent Auto 8.8 % (3-14); Neutrophils Absolute Auto 10000 /uL (1500-7000); Neutrophils Percent Auto 85.8 % (50-75); Platelet Count 446 X10^3/uL (150-400); Red Cell Distribution Width 17.6 % (11.6-14.8); White Blood Cell Count 11.7 X10^3/uL (4.5-11.0)
[2021-03-14 07:59] LABS: BUN Creatinine Ratio 23.3 (6-22); Blood Urea Nitrogen 14 mg/dL (7-17); Calcium 8.3 mg/dL (8.4-10.2); Carbon Dioxide 25 mmol/L (22-32); Chloride 101 mmol/L (98-107); Estimated Glomerular Filt Rate > 60.0 mL/min (>60); Glucose 74 mg/dL (80-110); HEMOLYSIS < 15 (0-50); Potassium 3.5 mmol/L (3.4-5.1); Sodium 132 mmol/L (137-145)
[2021-03-14 08:32] LABS: TSH w/ Reflex to FT4 3.01 uIU/mL (0.47-4.68)
[2021-03-14] MEDS: LEVOTHYROXINE 125 MCG TABLET PO (08:36)
[2021-03-14] MEDS: ENOXAPARIN 40 MG/0.4 ML SYRINGE SUBCUT (08:36)
[2021-03-14] MEDS: ASPIRIN EC 81 MG TABLET PO (08:36)
[2021-03-14] MEDS: LORazepam 0.5 MG TABLET PO ×2 (08:36→17:17)
[2021-03-14] MEDS: dexAMETHasone 4 MG TABLET PO ×2 (08:36→20:29)
--- NOTE | 2021-03-14 10:33 | ST.IPSLE ---
Visit Care Team Role Provider Type Shari Cardenas PA-C Family Provider Non-Staff Primary Care Provider Specialty: Internal Medicine Address: [address] [place] [address], [id number] Email: [email or web address] Prudence Rasmussen DO Emergency Provider Physician Referring Provider Specialty: Emergency Medicine Address: [address] [place] [address], [id number] Email: [email or web address] Zarate DO Admit Provider Physician Attending Provider Specialty: Internal Medicine Address: [address] [place] [address], [address] Email: [email or web address] Diagnoses Cerebral infarction, unspecified (03/13/21) Past Medical History (Last Reviewed 03/13/21 @ 16:04 by Bertin Zarate DO) Bone metastases (Medical) Brain metastasis (Medical) Breast cancer, right (Medical) Hx of migraine headaches (Medical) Hx of right mastectomy (Medical 06/2017) Hx of thyroidectomy (Medical 08/2018) PET positive thyroid lesions Iron deficiency anemia (Medical) Liver metastases (Medical) Lung metastases (Medical) Speech-Language Pathology Speech/Language Eval BIRD [employer]PER Adult Cognitive Linguistic Eval Start: 03/14/21 09:24 Freq: Status: Active Protocol: Document 03/14/21 10:20 NERIK (Rec: 03/14/21 10:32 [id number]) Adult Cognitive Linguistic Evaluation Session Time Visit Start Time 09:00 Visit Stop Time 09:20 Total Visit Minutes 20 Setting Assessment Location Acute Care Visit Type Note Type Initial evaluation Next Note Type Next Note Type Re-Evaluation Patient Information Identification Type Name,ID Card Medical History 66 year old female with PMH of metastatic breast cancer ( with Mets to lung, liver, and multiple brain lesions) on palliative chemotherapy, hypothyroidism who presented to the emergency room as a code stroke. Patient initially had some double vision, which is not uncommon for her after her treatments. However, this progressed to slurring of her speech and confusion at around 9-10 AM at which time they brought her in to the ER. No facial asymmetry, focal weakness or numbness reported. Unable to ask related symptoms currently due to the level of her aphasia. at bedside and confirms ED story. Patient was also extremely anxious upon arrival to hospital floor. Subjective Patient Report Pt was in her bed with her at bedside. Daughter arrives after ~10 minutes. Pt and family reported that t was confused, anxious and was not able to speak. Her utterances were jargon. Assessment Oral Motor Examination Completed No: Secondary to pt fatigue Results Pt reported no difficulty with eating, just that she has a very poor appetite. Her swallowing was screened and found to be WFL. Formal Assessment Results Informal cognitive assessment results indicated pt is oriented to time, person, place and situation. Pt conversed with this BIRD TRAPPER regarding her appetite and the breakfast she ate. No obvious word finding difficulty naming 6/6 objects in the room. Her speech was articulate and without s/sx dysarthria. No overt s/sx aphasia. Pt, her and daughter all stated that she was back to baseline/normal. Findings/Results Language Function Within functional limits Cognitive Function Within functional limits Plan of Care Speech-Language Treatment Yes Frequency to follow up as indicated 1-2x Patient/Caregiver Education Described results of evaluation,Patient expressed understanding of evaluation, Patient expressed agreement with goals and treatment plans ,Family/caregivers expressed understanding of evaluation, Family/caregivers expressed agreement with goals and treatment plan Short Term Goals pt will be able to express her needs to staff, family as needed without difficulty. Discharge Recommendations Home,Home with Home Health
--- NOTE | 2021-03-14 10:37 | CM.DPC ---
DCP Cont: Patient is being seen at [facility]. DARLYN Allen at [facility] stated that patient has an appointment on Sunday at 0900. Hospice may be discussed at this visit. P: DCP to continue to follow. MRI is pending. Plan is home when stable. Chrissy Guerrero RN/Adult Care Manager
--- NOTE | 2021-03-14 10:43 | PC.NURSE ---
Day shift: Dr Zarate informed of Pt's frequency of urination and was asked if Pt needed any IV fluids. No IV fluids ordered at thist sara. Pt off unit for MRI at approx 1045.
--- NOTE | 2021-03-14 11:20 | PC.NURSE ---
Day shift: Pt back on AC unit at approx 1121. Pt's Spouse and Daughter in room. Dr Zarate also talked w/ Pt and family at this time.
--- NOTE | 2021-03-14 11:22 | CM.DANOTE ---
DCP: Case received, EMR reviewed and met with patient. , Dileep, was at bedside. Introduced self and role. Was able to obtain information regarding patient's baseline status before hospitalization, as well as some health information. DCP assessment completed with information currently available. Patient is a 66 year old female who admitted yesterday afternoon to the care of the hospitalist team. PCP: Shari HUNTER. Payer: confirmed: Medicare/[employer]. Patient came to the hospital via private vehicle secondary to slurring words. Patient is here for CVA workup, and is expected to have an MRI this morning. Patient is currently going to [facility] for palliative treatment secondary to her history of metastatic breast CA, multiple brain lesions. DARLYN Nathan at [facility] indicated that patient has appointment there on Sunday, at approximately 0900, and hospice may be discussed then. Patient had noted some increased confusion last pm, and was put on CIWA. Met with patient and , Dileep, in patient's room. She was laying in bed, alert. Speech therapist had worked with patient and indicated, she had improved. She was able to answer questions appropriately, and also was there to support questions as well. She resides here in [place] with her spouse. They have grown children. Patient stated that she uses no DME supplies, gets around slowly. She is currently not driving, and is under the care of [facility]. P: DCP to continue to follow for needs. She will be working with therapy team. She may benefit with home health as well, did mention this during conversation. Chrissy Guerrero RN/Icing Machine Operator
--- NOTE | 2021-03-14 13:33 | PT-IP ANOTE ---
Attempted to see pt x 2 this date. She was unavailable - off floor for MRI and sleeping soundly on 2nd attempt. Family requested PT hold assessment. Will check again in the morning.
--- NOTE | 2021-03-14 13:33 | OT.IPNOTE ---
Attempted to see pt twice, in AM pt not ready as a bit tearful after getting her MRI . In the PM, pt asleep and family wanting pt to sleep instead of being seen for therapy at this time. To check on pt tomorrow for OT alli.
--- NOTE | 2021-03-14 15:02 | P.PN_ITS ---
Subjective Subjective Date Patient Seen: 03/14/21 Time Patient Seen: 15:02 Interval history: Brief episode of confusion this morning, improved this afternoon. Doing much better today, speech is clear and coherent today. Feels fatigued but better. MRI negative for acute infarcts. Exam Vital Signs (past 8 hours): - 03/14/21 08:49 03/14/21 09:00 03/14/21 09:04 Temperature 97.8 F Pulse Rate 101 H Respiratory Rate 16 Blood Pressure 98/47 L Pulse Oximetry 94 98 94 03/14/21 11:44 03/14/21 12:07 03/14/21 13:00 Temperature 98 F Pulse Rate 102 H Respiratory Rate 17 Blood Pressure 101/50 L Pulse Oximetry 95 95 97 Oxygen Delivery Method Room Air Oxygen Flow Rate 0 Narrative Exam Narrative: GENERAL APPEARANCE: Thin appearing female, no acute distress but quiet. SKIN: Inspection of the skin reveals no rashes, ulcerations or petechiae. HEENT: Normocephalic atraumatic, extraocular muscles are intact, oropharynx is clear and mucous membranes are moist, neck is supple without adenopathy NECK: Supple and symmetric. There was no thyroid enlargement, and no tenderness, or masses were felt. CHEST: no tenderness, chest port without erythema or induration. LUNGS: Auscultation of the lungs revealed no wheezes, rhonchi, or rales. CARDIOVASCULAR: There was a regular rate and rhythm without any murmurs, gallops, rubs. Peripheral pulses were 2+ and symmetric. ABDOMEN: Soft, nontender, and non-distended. MUSCULOSKELETAL: There was no tenderness or effusions noted. Muscle strength and tone were normal. EXTREMITIES: No cyanosis, clubbing or edema. NEUROLOGIC: alert and oriented today without focal deficits. Objective Labs Result Diagrams: 03/14/21 07:45 03/14/21 07:45 Labs: Laboratory Results - last 24 hr 03/13/21 03/14/21 03/14/21 15:56 07:45 07:45 WBC 11.7 H RBC 3.90 L Hgb 12.5 Hct 37.4 MCV 95.8 MCH 31.9 MCHC 33.3 RDW 17.6 H Plt Count 446 H Neut % (Auto) 85.8 H Lymph % (Auto) 4.7 L [place] % (Auto) 8.8 Eos % (Auto) 0.6 L Baso % (Auto) 0.1 Neut # (Auto) 05876 H Lymph # (Auto) 600 L [place] # (Auto) 1000 H Eos # (Auto) 100 Baso # (Auto) 0 Sodium 132 L Potassium 3.5 Chloride 101 Carbon Dioxide 25 BUN 14 Creatinine 0.60 Estimated GFR > 60.0 BUN/Creatinine Ratio 23.3 H Glucose 74 L Calcium 8.3 L TSH Urine Color Yellow Urine Appearance Clear Urine pH 8.0 Ur Specific [place] 1.010 Urine Protein Negative Urine Glucose (UA) Negative Urine Ketones Trace H Urine Occult Blood Negative Urine Nitrate Negative Urine Bilirubin Negative Urine Urobilinogen 0.2 Ur Leukocyte Esterase Trace H Urine RBC None seen Urine WBC 5-10/hpf H Urine Bacteria Many (>30) H Ur Culture Indicated? Specimen cultured 03/14/21 07:45 WBC RBC Hgb Hct MCV MCH MCHC RDW Plt Count Neut % (Auto) Lymph % (Auto) [place] % (Auto) Eos % (Auto) Baso % (Auto) Neut # (Auto) Lymph # (Auto) [place] # (Auto) Eos # (Auto) Baso # (Auto) Sodium Potassium Chloride Carbon Dioxide BUN Creatinine Estimated GFR BUN/Creatinine Ratio Glucose Calcium TSH 3.01 Urine Color Urine Appearance Urine pH Ur Specific [place] Urine Protein Urine Glucose (UA) Urine Ketones Urine Occult Blood Urine Nitrate Urine Bilirubin Urine Urobilinogen Ur Leukocyte Esterase Urine RBC Urine WBC Urine Bacteria Ur Culture Indicated? PFSH Medical History Bone metastases Brain metastasis Breast cancer, right Hx of migraine headaches Iron deficiency anemia Liver metastases Lung metastases Surgical History History of splenectomy (1979) Hx of right mastectomy (06/2017) Hx of thyroidectomy (08/2018) Status post delivery Status post surgery (07/23/15) Social History household members: spouse Smoking Status: Never smoker alcohol intake: current Assessment & Plan Assessment & Plan narrative: This is a 66 year old female with PMH of metastatic breast cancer (with Mets to lung, liver, and multiple brain lesions) on palliative chemotherapy, hypothyroidism who presented to the emergency room with worsening speech and confusion, admitted to medicine for further evaluation. 1. toxic metabolic encephalopathy, acute, present on admission - most likely acute confusion related to combination of acute TIA and /or brain mets, acute cystitis, with anxiety with possible benzodiazepine withdrawal given home TID dosing, also includes delirium from increased dexamethasone a few days ago. - placed on CIWA protocol for now, though she is markedly better today. -MRI as noted below. 2. aphasia, acute, probable TIA, present on admission - patient presents with profound aphasia. telenuerology consulted in the ER, not TPA candidate due to brain mets. given asa in the ER. - differential includes brain metastases, though on head CT these appear to have improved. - MRI stroke without acute infarcts and improved brain lesions compared to prior imaging. - NIHSS was > 5 on admission, though at this time given level of aphasia and confusion it was difficult to accurately assess. continue asa only given brain mets and NIHSS >5. continue telemetry. - PT/OT/Speech therapy consultations. - continue telemetry. There is some carotid disease but about 50% stenosis bilaterally. Have ordered statin therapy and aspirin daily for presumed TIA. 3. metastatic breast Cancer - seen by oncology Dr. Lee on 03/09. Had increased decadron due to nausea. Have decreased given above to BID dosing. 4. post thyroidectomy related hypothyroidism, - continue home levothyroxine. 5. Elevated transaminase levels - improving recently compared with outpatient results. suspect related to metastatic disease or from chemotherapy. 6. Acute cystitis, present on admission. - continue ceftriaxone, initial leukocytosis on admission improving, though may be elevated in setting of steroid therapy. I have utilized all available immediate resources to obtain, update, or review the patient's current medications. Code: DNR, surrogate decision maker is the patient's spouse. Patient has an advanced directive which will bring in. DVT: Lovenox Dispo: possible discharge home tomorrow given brief confusion this AM. COVID-19 COVID-19 status: Negative Result date/Date tested (Pos, Neg/Pending): 03/13/21 Quality VTE Deep Vein Thrombosis/Pulmonary Embolism Present on Admission: No MIPS - Admit I confirm the patient?s Advance Care Plan is present, Code status is documented, Surrogate decision maker is in patient?s record [If Yes, STOP here]: Yes
[2021-03-14] MEDS: cefTRIAXone 1,000 MG in SODIUM CHLORIDE 0.9% 100 ML 200 ML IV (20:00)
[2021-03-14] MEDS: ATORVASTATIN 20 MG TABLET 40 MG PO (20:02)
--- NOTE | 2021-03-14 22:29 | PC.NURSE ---
Pt resting @ intervals this evening. Port intact. Med x 1 w/ativan early in shift w/good relief. Relatively uneventful evening. Call light w/in reach, bed alarm on for pt safety. Continue w/plan of care.
[2021-03-15 05:40] VITALS: BP 131/61; PULSE 84; RESP 18; TEMP 37.1; O2SAT 97
[2021-03-15 06:46] LABS: Add Manual Diff / Slide Review NO; Basophils Absolute Auto 100 /uL (0-100); Basophils Percent Auto 0.7 % (0-2); Eosinophils Absolute Auto 0 /uL (0-450); Eosinophils Percent Auto 0.1 % (2-4); Hematocrit 37.7 % (36-46); Hemoglobin 12.2 g/dL (12.0-16.0); Lymphocytes Absolute Auto 900 /uL (1100-4500); Lymphocytes Percent Auto 8.5 % (25-40); Mean Corpuscular HGB Conc 32.4 % (30-36); Mean Corpuscular Hemoglobin 31.4 PG (26-34); Mean Corpuscular Volume 96.8 fL (80-100); Monocytes Absolute Auto 600 /uL (0-900); Monocytes Percent Auto 5.7 % (3-14); Neutrophils Absolute Auto 9500 /uL (1500-7000); Platelet Count 509 X10^3/uL (150-400); Red Blood Cell Count 3.89 X10^6/uL (4.0-5.2); Red Cell Distribution Width 17.4 % (11.6-14.8); White Blood Cell Count 11.2 X10^3/uL (4.5-11.0)
--- NOTE | 2021-03-15 06:53 | PC.NURSE ---
Port was not drawing any blood. Spouse reported sometimes the nurse flush it with heparin & let it set for 5 mins. & it will draw blood. Heparin admin. prior to blood draw & it aspirated blood without any difficulty. Heparin administered again after the blood was drawn. Will report to day RN.
[2021-03-15 06:55] LABS: BUN Creatinine Ratio 33.3 (6-22); Blood Urea Nitrogen 13 mg/dL (7-17); Calcium 8.7 mg/dL (8.4-10.2); Carbon Dioxide 26 mmol/L (22-32); Chloride 102 mmol/L (98-107); Estimated Glomerular Filt Rate > 60.0 mL/min (>60); Glucose 136 mg/dL (80-110); HEMOLYSIS < 15 (0-50); Sodium 134 mmol/L (137-145)
[2021-03-15 07:31] VITALS: BP 112/49; PULSE 87; RESP 14; TEMP 36.6; O2SAT 99
--- NOTE | 2021-03-15 07:34 | P.DS_ITS ---
History of Present Illness History of Present Illness Date Patient Seen: 03/15/21 Time Patient Seen: 09:30 Chief complaint: slurring words Narrative: This is a 66 year old female with PMH of metastatic breast cancer (with Mets to lung, liver, and multiple brain lesions) on palliative chemotherapy, hypothyroidism who presented to the emergency room as a code stroke. Patient initially had some double vision, which is not uncommon for her after her treatments. However, this progressed to slurring of her speech and confusion at around 9-10 AM at which time they brought her in to the ER. No facial asymmetry, focal weakness or numbness reported. Unable to ask related symptoms currently due to the level of her aphasia. at bedside and confirms ED story. Patient was also extremely anxious upon arrival to hospital floor. Has bilateral weakness recently due to chemotherapy, chronic nausea for which her dexamethasone was recently increased. In the emergency room, patient with mild hypertension improved without medication. She also had mild tachycardia and tachypnea. It appears as if she has been taking benzodiazepines TID at home, and recently had increased her dexamethasone to TID due to increased nausea on 03/09. Review of history is based upon chart review and with and patient unable to participate currently. CT head without contrast did not show any evidence of active bleeding. CT angiogram of her head and neck did not show any acute disease, though there is a ring-enhancing lesion, but overall this is actually much improved from her prior head imaging. Discharge Providers Provider Date of admission: 03/13/21 14:20 Discharge Date: 03/15/21 Primary care physician: Shari Cardenas PA-C Consults: 03/13/21 15:21 Consult to Occupational Therapy Evaluate & Treat Comment: Physician Instructions: Evaluate and treat Consult to Physical Therapy Evaluate & Treat Comment: Physician Instructions: Evaluate and Treat 03/13/21 16:45 Consult to Speech Therapy Evaluate & Treat Comment: Physician Instructions: Evaluate and treat Discharge provider: Bertin Zarate DO Summary Hospital Course Discharge Diagnosis: Please see hospital course by problem list noted below Hospital Course: This is a 66 year old female with PMH of metastatic breast cancer (with Mets to lung, liver, and multiple brain lesions) on palliative chemotherapy, hypothyroidism who presented to the emergency room with worsening speech and confusion, admitted to medicine for further evaluation. 1. toxic metabolic encephalopathy, acute, present on admission - most likely acute confusion related to combination of acute TIA and /or brain mets, acute cystitis, with anxiety with possible benzodiazepine withdrawal given home TID dosing, also includes delirium from increased dexamethasone a few day prior to admission. - markedly improved shortly after admission. Level of speech difficulties does suggest more of a TIA like syndrome, though certainly complicated by polypharmacy noted above. -MRI as noted below. - decreased home dexamethasone to BID dosing as this was increased for nausea which had seemingly improved. Has follow up with oncology shortly. 2. aphasia, acute, probable TIA, present on admission - patient presents with profound aphasia. telenuerology consulted in the ER, not TPA candidate due to brain mets. given asa in the ER. - MRI stroke without acute infarcts and improved brain lesions compared to prior imaging. Though given presentation and symptoms lasting <24 hours it is reasonable to call this a TIA. - NIHSS was > 5 on admission, though at this time given level of aphasia and co nfusion it was difficult to accurately assess. continue asa only given brain mets and NIHSS >5. continue telemetry. - appreciate speech therapy evaluation. - There is some carotid disease but about 50% stenosis bilaterally. - patient discharged on asa 81 mg daily and statin therapy for secondary prevention. 3. metastatic breast Cancer - seen by oncology Dr. Lee on 03/09. Had increased decadron due to nausea. Have decreased given above to BID dosing. 4. post thyroidectomy related hypothyroidism, - continued home levothyroxine. TSH unremarkable. 5. Elevated transaminase levels - improving recently compared with outpatient results. suspect related to metastatic disease or from chemotherapy. 6. Acute cystitis, present on admission. - continued ceftriaxone during hospitalization, discharge on oral cefdinir. initial leukocytosis on admission improving, though may be elevated in setting of steroid therapy. - cultures grew rothman-sensitive E. coli. 7. anxiety and depression - patient and expressed interest in starting SSRI therapy given anxiety and depression recently as a result of her malignancy. Discharged on low dose citalopram started day of discharge. Recommend continued titration with PCP as an outpatient. Time Spent with Patient Time spent: Greater than 30 minutes Exam Vital Signs (past 8 hours): - 03/14/21 23:40 03/14/21 23:44 03/15/21 05:40 Temperature 98.9 F 98.8 F Pulse Rate 81 84 Respiratory Rate 18 18 Blood Pressure 140/72 131/61 Pulse Oximetry 97 97 97 Oxygen Delivery Method Room Air Oxygen Flow Rate 0 Narrative Exam Narrative: GENERAL APPEARANCE: Thin appearing female, no acute distress but quiet. SKIN: Inspection of the skin reveals no rashes, ulcerations or petechiae. HEENT: Normocephalic atraumatic, extraocular muscles are intact, oropharynx is clear and mucous membranes are moist, neck is supple without adenopathy NECK: Supple and symmetric. There was no thyroid enlargement, and no tenderness, or masses were felt. CHEST: no tenderness, chest port without erythema or induration. LUNGS: Auscultation of the lungs revealed no wheezes, rhonchi, or rales. CARDIOVASCULAR: There was a regular rate and rhythm without any murmurs, gallops, rubs. Peripheral pulses were 2+ and symmetric. ABDOMEN: Soft, nontender, and non-distended. MUSCULOSKELETAL: There was no tenderness or effusions noted. Muscle strength and tone were normal. EXTREMITIES: No cyanosis, clubbing or edema. NEUROLOGIC: alert and oriented today without focal deficits. Objective Labs Result Diagrams: 03/15/21 06:38 03/15/21 06:38 Labs: Laboratory Results - last 24 hr 03/14/21 03/14/21 03/14/21 07:45 07:45 07:45 WBC 11.7 H RBC 3.90 L Hgb 12.5 Hct 37.4 MCV 95.8 MCH 31.9 MCHC 33.3 RDW 17.6 H Plt Count 446 H Neut % (Auto) 85.8 H Lymph % (Auto) 4.7 L [place] % (Auto) 8.8 Eos % (Auto) 0.6 L Baso % (Auto) 0.1 Neut # (Auto) 55774 H Lymph # (Auto) 600 L [place] # (Auto) 1000 H Eos # (Auto) 100 Baso # (Auto) 0 Sodium 132 L Potassium 3.5 Chloride 101 Carbon Dioxide 25 BUN 14 Creatinine 0.60 Estimated GFR > 60.0 BUN/Creatinine Ratio 23.3 H Glucose 74 L Calcium 8.3 L TSH 3.01 03/15/21 03/15/21 06:38 06:38 WBC 11.2 H RBC 3.89 L Hgb 12.2 Hct 37.7 MCV 96.8 MCH 31.4 MCHC 32.4 RDW 17.4 H Plt Count 509 H Neut % (Auto) 85.0 H Lymph % (Auto) 8.5 L [place] % (Auto) 5.7 Eos % (Auto) 0.1 L Baso % (Auto) 0.7 Neut # (Auto) 9500 H Lymph # (Auto) 900 L [place] # (Auto) 600 Eos # (Auto) 0 Baso # (Auto) 100 Sodium 134 L Potassium 4.0 Chloride 102 Carbon Dioxide 26 BUN 13 Creatinine 0.39 L Estimated GFR > 60.0 BUN/Creatinine Ratio 33.3 H Glucose 136 H Calcium 8.7 TSH PFSH Medical History Bone metastases Brain metastasis Breast cancer, right Hx of migraine headaches Iron deficiency anemia Liver metastases Lung metastases Surgical History History of splenectomy (1979) Hx of right mastectomy (06/2017) Hx of thyroidectomy (08/2018) Status post delivery Status post surgery (07/23/15) Social History household members: spouse Smoking Status: Never smoker alcohol intake: current Discharge Plan Discharge Plan Patient Disposition: Home Provider Discharge Comment: You were admitted to the hospital with difficulty speaking. This may be due to a TIA, a UTI that was found, or a medication reaction. Some of your steroids were adjusted and you are being managed for a TIA. You requested to start on an antidepressant, please follow up with your PCP for continued adjustment in this medication over time. Discharge orders & Medications Prescriptions: New cefdinir 300 mg capsule 300 mg PO BID 3 Days Qty: 6 RF: 0 atorvastatin [Lipitor] 20 mg Tablet 40 mg PO BEDTIME 30 Days Qty: 30 RF: 0 citalopram 10 mg Tablet 10 mg PO DAILY 30 Days Qty: 30 RF: 0 aspirin 81 mg Tablet,Delayed Release (Dr/Ec) 81 mg PO DAILY 30 Days Qty: 30 RF: 0 Continued levothyroxine 125 mcg Tablet 125 mcg PO DAILY RF: 0 melatonin 10 mg Tablet Extended Release 20 mg PO PRN PRN (Reason: Insomnia) RF: 0 hydrocodone-acetaminophen 5-325 mg Tablet 1 - 2 tab PO Q4H PRN (Reason: Pain (Scale Score 4-6)) Qty: 30 RF: 0 oxycodone 5 mg Capsule 5 - 10 mg PO Q4H PRN (Reason: Pain (Scale Score 4-6)) Qty: 50 RF: 0 lidocaine-prilocaine [Lido-Prilo [place] Pack] 2.5-2.5 % Kit See Rx Instructions .ROUTE .COMPLEX Qty: 7 RF: 0 promethazine 25 mg suppository 25 mg IA Q4-6H PRN (Reason: nausea and vomiting) Qty: 12 RF: 1 pramipexole [Mirapex] 0.125 mg tablet 0.125 mg PO BEDTIME Qty: 30 RF: 0 ondansetron HCl 4 mg tablet 4 mg PO Q6H PRN (Reason: Nausea) RF: 0 prochlorperazine maleate 10 mg tablet 10 mg PO DAILY RF: 0 lorazepam 0.5 mg tablet 0.5 mg PO Q6H PRN (Reason: Nausea) RF: 0 lidocaine 5 % adhesive patch,medicated 5 patch topical DAILY RF: 0 famotidine [Pepcid] 20 mg Tablet 20 mg PO DAILY RF: 0 ibuprofen 400 mg Tablet 400 mg PO Q6H PRN (Reason: Pain (Scale Score 4-6)) RF: 0 loratadine [Claritin] 10 mg Tablet 10 mg PO DAILY RF: 0 Changed dexamethasone 4 mg Tablet 4 mg PO BID Qty: 75 RF: 1 Discontinued lorazepam 1 mg tablet 1 mg PO Q6H PRN (Reason: Insomnia) RF: 0 Medication counseling provided by Pharmacist: Yes Follow up/Referrals: Shari Cardenas PA-C [Primary Care Provider] - Diet/Activity/Treatments Diet: Diet as Tolerated Activity: As tolerated Visit Report/Discharge Packet Instructions: Urinary Tract Infection, Transient Ischemic Attack, DI for Transient Ischemic Attack, DI for Urinary Tract Infection (UTI), How to Prevent Falls Discharge Data Primary Care Provider: Shari Cardenas Quality VTE Deep Vein Thrombosis/Pulmonary Embolism Present on Admission: No MIPS - Admit I confirm the patient?s Advance Care Plan is present, Code status is documented, Surrogate decision maker is in patient?s record [If Yes, STOP here]: Yes MIPS - DC The patient has current or prior documentation of left ventricular ejection fraction (LVEF) less than 40%, or moderate or severely depressed left ventricular systolic function.: No
[2021-03-15 08:26] VITALS: O2SAT 93
[2021-03-15] MEDS: dexAMETHasone 4 MG TABLET PO (08:44)
[2021-03-15] MEDS: LEVOTHYROXINE 125 MCG TABLET PO (08:44)
[2021-03-15] MEDS: ASPIRIN EC 81 MG TABLET PO (08:44)
[2021-03-15] MEDS: ENOXAPARIN 40 MG/0.4 ML SYRINGE SUBCUT (08:45)
[2021-03-15] MEDS: CITALOPRAM 10 MG TABLET PO (09:14)
[2021-03-15] MEDS: SODIUM CHLORIDE 0.9% FLUSH 10 ML IV (09:15)
--- NOTE | 2021-03-15 11:02 | PT-IP ANOTE ---
Pt was discussed at AM interdisciplinary rounds. Hospitalist states pt has no rehab needs at this time. PT will discharge orders.
--- NOTE | 2021-03-15 11:24 | PC.NURSE ---
Day shift: Pt left unit at approx 1125. She is with her spouse and daughter. Taken in WC by DAYAN Thomas. Pt has all personal belongings. MD scripts sent electronic to Pt's pharmacy. Paperwork signed and all questions answered. Family in room for teachings. Pharmacy also did teaching on new meds today.
== END 2021-03-15 11:31 | disposition home or self-care (01) | DRG 92 ==
LOC: ED 14:20 → AC 14:21
PROVIDERS: Admitting Provider Internal Medicine; Emergency Provider Emergency Medicine; Family Provider Physician Assistant; PCP Physician Assistant; Referring Provider Emergency Medicine; Visit Provider Internal Medicine
DX: G92 Toxic encephalopathy (principal); C78.7 Secondary malignant neoplasm of liver and intrahepatic bile duct; C78.00 Secondary malignant neoplasm of unspecified lung; C79.31 Secondary malignant neoplasm of brain; G45.9 Transient cerebral ischemic attack, unspecified; N30.00 Acute cystitis without hematuria; R47.01 Aphasia; F13.239 Sedative, hypnotic or anxiolytic dependence with withdrawal, unspecified; R29.724 NIHSS score 24; C50.911 Malignant neoplasm of unspecified site of right female breast; E89.0 Postprocedural hypothyroidism; F32.9 Major depressive disorder, single episode, unspecified; F41.9 Anxiety disorder, unspecified; T42.4X5A Adverse effect of benzodiazepines, initial encounter; T38.0X5A Adverse effect of glucocorticoids and synthetic analogues, initial encounter; Z20.822 Contact with and (suspected) exposure to COVID-19
CPT/HCPCS: 36415; 36591; 70450; 70496; 70498; 70548; 70553; 80048; 80053; 81001; 82550; 82962; 84443; 84484; 85007; 85025; 85610; 85730; 87077; 87086; 87186; 87635; 92523; 93005; 94760; 99285; C9803; Q3014; J0696; J1642; J1650; J2060; Q9967